=== PATIENT | female | born 1955 | race Caucasian/White ===

== ENCOUNTER → 2017-12-04 09:52 | Outpatient (CLI) | payer OTHER, SELFPAY ==
--- NOTE | 2017-12-04 09:56 | XR_ITS ---
XR DEXA axial skeleton HISTORY: ITS.REASON: POST MENOPAUSAL ORDERING PHYSICIAN: Kraig Figueredo MD PATIENT AGE: 62 years COMPARISON: None FINDINGS: The BMD measured at the Right femor total is 0.726 g/cm squared with a T score of -2.2 . This is considered Osteopenic according to the World Health Organization criteria. Fracture risk is moderate. Treatment is advised. IMPRESSION: Osteopenia with moderate fracture risk. Based on these results, recommend follow up exam November 2019
== END ==
PROVIDERS: Family Provider Family Medicine; PCP Family Medicine; Visit Provider Family Medicine
DX: Z78.0 Asymptomatic menopausal state (principal)
CPT/HCPCS: 77080

== ENCOUNTER → 2018-10-29 12:38 | Outpatient (CLI) | payer OTHER, SELFPAY ==
[2018-10-29 13:51] LABS: Basophils % 0.7 % (0.1-2.0); Eosinophils # 0.1 K/mm3 (0.0-0.4); Eosinophils % 1.5 % (0.1-12.0); Hematocrit 45.4 % (37.0-47.0); Hemoglobin 14.8 g/dL (12.2-16.2); Lymphocytes # 2.2 K/mm3 (0.7-4.5); Lymphocytes % 34.7 % (10-50); Mean Corpuscular HGB Conc 32.7 g/dL (31.8-35.4); Mean Corpuscular Hemoglobin 32.1 pg (27.0-31.2); Mean Corpuscular Volume 98.3 fl (81-99); Mean Platelet Volume 7.7 fl (7.4-10.4); Monocytes # 0.2 K/mm3 (0.1-1.0); Monocytes % 3.8 % (1.7-9.3); Neutrophils # 3.7 K/mm3 (1.8-7.8); Neutrophils % 59.3 % (37.0-80.0); Platelet Count 187 K/mm3 (142-424); Red Blood Count 4.62 M/mm3 (4.20-5.40); Red Cell Distribution Width 13.2 % (11.5-17.5); White Blood Count 6.2 K/mm3 (4.8-10.8)
[2018-10-29 13:52] LABS: Alanine Aminotransferase 18 U/L (12-78); Albumin Level 4.6 gm/dL (3.4-5.0); Albumin/Globulin Ratio 1.5 (1.1-1.8); Alkaline Phosphatase 92 U/L (46-116); Aspartate Amino Transferase 11 U/L (15-37); Bilirubin,Total 0.7 mg/dL (0.2-1.0); Blood Urea Nitrogen 15 mg/dL (7-18); Calcium 9.8 mg/dL (8.5-10.1); Carbon Dioxide 30 mmol/L (21.0-32.0); Chloride 103 mmol/L (98-107); Creatinine,Serum 0.67 mg/dL (0.55-1.02); Estimated Glomerular Filt Rate 89 ml/min (>60); GFR (African American) 108 ML/MIN (>60); Glucose 95 mg/dL (74-106); Sodium 142 mmol/L (136-145); Total Protein,Serum 7.6 gm/dL (6.4-8.2)
== END ==
PROVIDERS: Visit Provider Surgery
DX: K80.10 Calculus of gallbladder with chronic cholecystitis without obstruction (principal)
CPT/HCPCS: 36415; 80053; 85025; 93005

== ENCOUNTER → 2019-11-28 14:50 | Outpatient (CLI) | payer OTHER, SELFPAY ==
[2019-11-28 14:53] LABS: Adenovirus F 40/41, stool Not Detected (NotDetected); Astrovirus Not Detected (NotDetected); Clostridium Difficile A/B, PCR Not Detected (NotDetected); Cryptosporidium Not Detected (NotDetected); Cyclospora Cayetanesis Not Detected (NotDetected); Entamoeba histolytica Not Detected (NotDetected); Enteroaggregative E coli Not Detected (NotDetected); Enterotoxigenic E coli Not Detected (NotDetected); Giardia lamblia Not Detected (NotDetected); Norovirus Not Detected (NotDetected); Plesimonas Shigalloides, PCR Not Detected (NotDetected); Rotavirus A Not Detected (NotDetected); Salmonella, PCR Not Detected (NotDetected); Sapovirus Not Detected (NotDetected); Shiga-like toxin E coli Not Detected (NotDetected); Shigella Enterovasive E coli Not Detected (NotDetected); Vibrio Cholerae Not Detected (NotDetected); Vibrio, PCR Not Detected (NotDetected); Yersinia Entercolitica, PCR Not Detected (NotDetected)
[2019-11-28 17:40] LABS: Campylobacter Detected (NotDetected); Enteropathogenic E coli Detected (NotDetected)
== END ==
PROVIDERS: Visit Provider Family Medicine
DX: R19.7 Diarrhea, unspecified (principal); A04.5 Campylobacter enteritis; A04.0 Enteropathogenic Escherichia coli infection
CPT/HCPCS: 87507

== ENCOUNTER 2020-08-05 10:58 | Emergency (ER) | payer OTHER, SELFPAY ==
[2020-08-05 10:59] VITALS: BP 142/67; PULSE 76; RESP 16; TEMP 36.6; O2SAT 98; BMI 22.4
--- NOTE | 2020-08-05 11:14 | PC.NURSE ---
Lab at bedside to perform UDS for Workman's Comp
--- NOTE | 2020-08-05 11:17 | XR_ITS ---
PROCEDURE: XR KNEE LT 3V CLINICAL INDICATION: PAIN X 3wks COMPARISON: No exams were available for comparison FINDINGS: No fracture or dislocation. No lytic or blastic change. There is normal mineralization. There are mild osteoarthritic changes involving all 3 compartments with generalized osteopenia. Other findings:None. IMPRESSION: Mild osteoarthritis Dictated by: Anmol Dailey MD 08/05/2020 13:54 Anmol Dailey MD in [place] 08/05/2020 13:54
--- NOTE | 2020-08-05 11:20 | HMH.EDGENADL ---
ED Disposition Clinical Impression: Left knee sprain Qualifiers: Encounter type: initial encounter Involved ligament of knee: lateral collateral ligament Qualified Code(s): S83.422A - Sprain of lateral collateral ligament of left knee, initial encounter Disposition: Home, Self-Care Condition on Discharge: Good Additional Instructions: Wear knee immobilizer. Tylenol or ibuprofen for pain. Ice if needed for swelling. Sitting job only until seen by orthopedics. Referrals: Kraig Figueredo MD [Primary Care Provider] - Ashley Ahumada MD [Physician] - - Critical Care Critical Care Time: No Attestation: On 08/05/20, the high probability of a clinically significant, sudden or life threatening deterioration of the following system(s) required my full and direct attention, intervention and personal management. The time I documented below is in addition to time spent performing reported procedures but includes the following listed in this critical care notation. Medical Decision Making - Hilario Inquiry Pt receiving controlled substance: No Vital Signs: 08/05/20 10:59 08/05/20 11:38 Temperature 98 F Temperature Source Oral Pulse Rate [Radial] 76 72 Respiratory Rate 16 Blood Pressure [Right Arm] 142/67 H 148/62 H Blood Pressure Mean [Right Arm] 92 90 Blood Pressure Source [Right Arm] Automatic Cuff Blood Pressure Position [Right Arm] Sitting Sitting 02 Sat by Pulse Oximetry 98 99 Oxygen Delivery Method Room Air Room Air Orders (Tests/Meds): ORDERS Category Date Time Status Knee XR left 3 views [XR knee LT 3V] Stat Exams 08/05/20 11:17 Taken General Adult HPI - General Chief complaint: PAIN Stated complaint: [id number] left knee pain Time Seen by Provider: 08/05/20 11:20 Mode of Arrival: Ambulatory Limitations: No Limitations Description of Symptoms (Recalled from ER Triage Doc. by RN): TO ED AMBULATORY WITH C/O LATERAL LT KNEE PAIN. STATES AT WORK YESTERDAY AND SLIPPED, TWISTED LT KNEE. PT DENIES FALL. 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 She describes a varus type of stress. She now has pain in the lateral knee. She is able to bear weight. No numbness or weakness or other injuries. She did not fall to the ground. No previous knee problems. She is supposed to work today at 11 AM. She is not sure she can do her job because she is afraid her knee would give out on her. - Related Data Home Medications Medication Instructions Recorded Confirmed Aspirin [Aspir 81] 81 mg PO DAILY 09/30/18 09/05/19 Mirabegron [Myrbetriq] 50 mg PO DAILY 09/30/18 09/05/19 Allergies Allergy/AdvReac Type Severity Reaction Status Date / Time codeine AdvReac Unknown NA-NAUSEA/V Verified 09/05/19 12:08 OMITING [facility] History - Hepatitis A Screen Drug use history?: No High risk sexual behaviors?: No History of sexually transmitted infection?: No Currently employed?: No Childcare worker?: No Do you have indoor plumbing?: Yes Do you have electricity?: Yes Attestation statement:: This patient has been screened for Hepatitis A risk factors. I have reviewed the patient's past medical history: Yes Medical History: Reports:: Cancer Denies:: Diabetes Mellitus Type 1, Diabetes Mellitus Type 2, Internal Pacemaker, MRSA, Seizures Other Medical History: Denies: Blood Transfusion Reaction Other Surgeries: Yes: Cholecystectomy, Hernia Repair, Tubal Ligation, Other. No: Pacemaker Amputation: No Fractures: No - Social History Smoking Status: Current every day smoker Tobacco Type: cigarettes # Packs/Day (cigarettes): 1 Alcohol Intake: never Substance Use Type: denies use Occupational Status: employed Housing: house Household Members: spouse Family Hx:: Cancer ROS Obtained: Yes Systems reviewed as appropriate & no additional complaints - Musculoskele
--- NOTE | 2020-08-05 11:34 | PC.NURSE ---
Pt to rad.
--- NOTE | 2020-08-05 11:37 | PC.NURSE ---
Pt returned from rad.
[2020-08-05 11:38] VITALS: BP 148/62; PULSE 72; O2SAT 99
--- NOTE | 2020-08-05 12:02 | PC.NURSE ---
Pt has follow up appointment 08/09/[address] Ahumada.
[2020-08-05 12:10] VITALS: BP 149/86; PULSE 70; RESP 16; TEMP 36.6; O2SAT 98
== END 2020-08-05 12:11 | disposition home or self-care (01) ==
PROVIDERS: Emergency Provider Emergency Medicine; PCP Family Medicine
DX: S83.422A Sprain of lateral collateral ligament of left knee, initial encounter (principal); X50.1XXA Overexertion from prolonged static or awkward postures, initial encounter; Y92.69 Other specified industrial and construction area as the place of occurrence of the external cause; Y99.0 Civilian activity done for income or pay; F17.210 Nicotine dependence, cigarettes, uncomplicated
CPT/HCPCS: 29505; 73562; 99282

== ENCOUNTER → 2020-08-09 09:29 | Outpatient (CLI) | payer OTHER, SELFPAY ==
--- NOTE | 2020-08-09 09:34 | XR_ITS ---
PROCEDURE: XR KNEE LT 4V CLINICAL INDICATION: LT knee pain COMPARISON: CR XR KNEE LT 3V from 08/05/2020 FINDINGS: No fracture or dislocation. No lytic or blastic change. There is normal mineralization. Minimal osteoarthritic changes are present Other findings:None. IMPRESSION: Minimal osteoarthritis otherwise negative Dictated by: Anmol Dailey MD 08/09/2020 16:42 Anmol Dailey MD in [place] 08/09/2020 16:42
== END ==
PROVIDERS: PCP Family Medicine; Visit Provider Orthopaedic Surgery
DX: S83.92XA Sprain of unspecified site of left knee, initial encounter (principal)
CPT/HCPCS: 73564

== ENCOUNTER → 2021-01-13 13:49 | Outpatient (CLI) | payer OTHER, SELFPAY ==
--- NOTE | 2021-01-13 13:54 | CT_ITS ---
PROCEDURE: CT LUNG SCREENING CLINICAL INDICATION: HX OF NICOTINE DEPENDENCE 30+ pack year smoking history COMPARISON: CT ABDPELW CT abdomen pelvis w con from 09/30/2018 TECHNIQUE: The exam was performed on a GE Light Speed [address] scanner using 2.90 mGy CTDI. A low dose helical CT CHEST was performed on a multi-detector scanner. All CT scans at the facility use one or more dose reduction, viz: automated exposure control, ma/kV adjustment per patient size (including targeted exams where dose is matched to indication, i.e. head), or iterative reconstruction technique. The LDCT was performed in a facility that meets the criteria for the screening program. Data regarding this exam was submitted to ACR which is an approved registry. The order for this exam indicates that it came as a result of a lung cancer screening counseling shard decision-making visit that included all the elements required of such a visit including smoking cessation. The radiologist interpreting this exam meets the CMS criteria for the LDCT lung cancer screening program. The exam is reported using the Lung-RADS classification scale and reported to the ACR registry. NOTE: This study was performed for the specific purposes of lung cancer screening and is not an alternative to diagnostic chest CT. RADIATION DOSE: CTDI vol(CT dose Index-volume) = 2.90mG DLP (Dose Length Product) = 122.46 mGcm FINDINGS: COPD with centrilobular and panlobular emphysematous changes. There are scattered areas of scarring most prominent in the lung apices. 3 mm noncalcified nodule left lower lobe laterally stable. 7 mm nodular opacity is present in the right upper lobe posterior laterally. This is at the lower end of an area of scarring and may be due to scarring itself. Six-month follow-up suggested OTHER FINDINGS: Multiple hypodensities of the liver which may be due to cysts the largest visualized in the hepatic dome at 2.4 cm. IMPRESSION: Lung-RADS Category 3 Probably Benign Follow-up: [address] Chest with contrast. Other findings include COPD with centrilobular and panlobular emphysema with scattered areas of scarring Dictated by: Anmol Dailey MD 01/21/2021 13:07 Anmol Dailey MD in [place] 01/21/2021 13:07
--- NOTE | 2021-01-13 13:54 | MM_ITS ---
PROCEDURE INFORMATION: Exam: MG Screening 3D Mammography Exam date and time: 01/13/2021 1:54 PM Age: 65 years old Clinical indication: Encounter for screening mammogram for malignant neoplasm of breast TECHNIQUE: Imaging protocol: Screening tomosynthesis and 2D mammography including computer-aided detection (CAD) when performed. COMPARISON: No relevant prior studies available. FINDINGS: MAMMOGRAPHY: Breast composition: The breast tissue is composed of scattered areas of fibroglandular density. Mass: None. Architectural distortion: None. Calcifications: No suspicious calcifications. Asymmetric density: None. Skin thickening: None. Axillary adenopathy: None. IMPRESSION: No mammographic evidence of malignancy. Annual screening is recommended unless otherwise clinically indicated. ASSESSMENT: BI-RADS Category 1: Negative
== END ==
PROVIDERS: PCP Family Medicine; Visit Provider Family Medicine
DX: Z12.31 Encounter for screening mammogram for malignant neoplasm of breast (principal); Z87.891 Personal history of nicotine dependence; Z12.2 Encounter for screening for malignant neoplasm of respiratory organs
CPT/HCPCS: 71271; 77063; 77067

== ENCOUNTER 2021-03-16 19:50 | Emergency (ER) | payer OTHER, SELFPAY ==
[2021-03-16 19:51] VITALS: BP 134/50; PULSE 78; RESP 16; TEMP 36.6; O2SAT 96; BMI 23.0
--- NOTE | 2021-03-16 20:01 | XR_ITS ---
PROCEDURE INFORMATION: Exam: XR Right Elbow Exam date and time: 03/16/2021 8:01 PM Age: 65 years old Clinical indication: Injury or trauma; Fall; Work related; Blunt trauma (contusions or hematomas); Elbow; Right; Injury date: 03/16/2021; Injury details: Fell landed on RT side TECHNIQUE: Imaging protocol: XR Right elbow. Views: 3 or more views. COMPARISON: No relevant prior studies available. FINDINGS: Bones/joints: Osteopenia. No fracture. Soft tissues: Normal. IMPRESSION: No acute findings.
--- NOTE | 2021-03-16 20:01 | XR_ITS ---
PROCEDURE INFORMATION: Exam: XR Right Knee Exam date and time: 03/16/2021 8:01 PM Age: 65 years old Clinical indication: Injury or trauma; Fall; Work related; Blunt trauma; Right; Injury date: 03/16/2021; Injury details: Fell landed on RT knee swelling TECHNIQUE: Imaging protocol: XR Right knee. Views: 3 views. COMPARISON: VENOUS LOWER EXT BLAISE 04/07/2016 11:29 AM FINDINGS: Bones/joints: Osteopenia. No fracture. Soft tissues: Normal. IMPRESSION: No acute findings.
--- NOTE | 2021-03-16 20:03 | XR_ITS ---
PROCEDURE INFORMATION: Exam: XR Chest Exam date and time: 03/16/2021 8:03 PM Age: 65 years old Clinical indication: Injury or trauma; Fall; Work related; Blunt trauma (contusions or hematomas); Injury date: 03/16/2021; Injury details: Fell landed on RT side TECHNIQUE: Imaging protocol: XR of the chest. Views: 2 views. COMPARISON: CR CXR1 CHEST-PORTABLE 12/31/2016 1:55 PM FINDINGS: Lungs: Pulmonary hyperinflation. Stable 6 mm nodule at the left base. No consolidation. Pleural spaces: Unremarkable. No pleural effusion. No pneumothorax. Heart/Mediastinum: Unremarkable. No cardiomegaly. Bones/joints: Unremarkable. IMPRESSION: No acute findings.
--- NOTE | 2021-03-16 20:03 | XR_ITS ---
PROCEDURE INFORMATION: Exam: XR Pelvis Exam date and time: 03/16/2021 8:03 PM Age: 65 years old Clinical indication: Injury or trauma; Fall; Work related; Blunt trauma (contusions or hematomas); Right; Pelvic region; Injury date: 03/16/2021; Injury details: Fell TECHNIQUE: Imaging protocol: XR pelvis. Views: 1 or 2 view. COMPARISON: ABDPELW CT abdomen pelvis w con 09/30/2018 12:29 PM FINDINGS: Bones/joints: Degenerative changes of the lumbosacral spine. No acute fracture. Soft tissues: Unremarkable. Other findings: Large stool burden. IMPRESSION: Chronic changes without acute process.
--- NOTE | 2021-03-16 21:25 | HMH.EDFALL ---
ED Disposition Clinical Impression: Sprain of elbow, right Qualifiers: Encounter type: initial encounter Qualified Code(s): S53.401A - Unspecified sprain of right elbow, initial encounter Right knee sprain Qualifiers: Encounter type: initial encounter Involved ligament of knee: unspecified ligament Qualified Code(s): S83.91XA - Sprain of unspecified site of right knee, initial encounter Fall Qualifiers: Encounter type: initial encounter Qualified Code(s): W19.XXXA - Unspecified fall, initial encounter Disposition: Home, Self-Care Condition on Discharge: Good Instructions: DI for Knee Sprain, DI for Elbow Sprain Additional Instructions: ice and advil/tyenolas needed and see pcp as needed Referrals: Kraig Figueredo MD [Primary Care Provider] - - Critical Care Critical Care Time: No Attestation: On 03/16/21, the high probability of a clinically significant, sudden or life threatening deterioration of the following system(s) required my full and direct attention, intervention and personal management. The time I documented below is in addition to time spent performing reported procedures but includes the following listed in this critical care notation. Medical Decision Making - Medical Records Medical records reviewed: Yes: I reviewed the patient's medical records. - Hilario Inquiry Pt receiving controlled substance: No Vital Signs: 03/16/21 19:51 Temperature 97.8 F Temperature Source Oral Pulse Rate [Right] 78 Respiratory Rate 16 Blood Pressure [Right Arm] 134/50 L Blood Pressure Mean [Right Arm] 78 02 Sat by Pulse Oximetry 96 - Lab Data Lab results reviewed: Yes: I reviewed the patient's lab results. - Radiology Data #1 Image(s): Chest, Elbow, Pelvis, Knee Image Reviewed: Yes I have reviewed radiologist's interpretation Preliminary Findings: No Fracture Seen Medical Decision Narrative: knee and elbow injury w/o fx - workman comp form completed Fall HPI - General Chief Complaint: Fall Stated Complaint: WC AO fall in ER injured R knee R elbow Rhip Time Seen by Provider: 03/16/21 21:00 Mode of Arrival: Ambulatory Source of Information: Patient, Medical Record Limitations: No Limitations Description of Symptoms (Recalled from ER Triage Doc. by RN): pt fell in er @ 6:30. pt c/o rt knee,elbow,hip pain - History of Present Illness HPI Narrative: pt is a [employer] employee who slipped and injured rt elbow and rt knee - MD complaint: fall Onset (ago): hour(s) Fall from: standing Fall witnessed: yes, by bystander Place fall occurred: work Loss of consciousness: none Prolonged down time: no Context: tripped/slipped Location of injury - extremities: Right: elbow, thigh, knee Severity: moderate Associated symptoms (after fall): denies - Related Data Home Medications Medication Instructions Recorded Confirmed Aspirin [Aspir 81] 81 mg PO DAILY 09/30/18 08/09/20 Mirabegron [Myrbetriq] 50 mg PO DAILY 09/30/18 08/09/20 Allergies Allergy/AdvReac Type Severity Reaction Status Date / Time codeine AdvReac Unknown NA-NAUSEA/V Verified 08/09/20 10:11 OMITING [facility] History - Hepatitis A Screen Drug use history?: No High risk sexual behaviors?: No History of sexually transmitted infection?: No Currently employed?: No Childcare worker?: No Do you have indoor plumbing?: Yes Do you have electricity?: Yes Attestation statement:: This patient has been screened for Hepatitis A risk factors. I have reviewed the patient's past medical history: Yes Medical History: Reports:: Cancer Denies:: Diabetes Mellitus Type 1, Diabetes Mellitus Type 2, Internal Pacemaker, MRSA, Seizures Other Medical History: Denies: Blood Transfusion Reaction Other Surgeries: Yes: Cholecystectomy, Colonoscopy, Hernia Repair, Tubal Ligation, Other. No: Pacemaker Amputation: No Fractures: No Comment: back surgery - Social History Smoking Status: Current every day smoker Tobacco Type: cigarettes # Pa
[2021-03-16 21:50] VITALS: BP 134/50; PULSE 78; RESP 16; TEMP 36.6; O2SAT 96
== END 2021-03-16 21:51 | disposition home or self-care (01) ==
PROVIDERS: Emergency Provider Emergency Medicine; PCP Family Medicine
DX: S53.401A Unspecified sprain of right elbow, initial encounter (principal); S83.91XA Sprain of unspecified site of right knee, initial encounter; W01.0XXA Fall on same level from slipping, tripping and stumbling without subsequent striking against object, initial encounter; Y92.69 Other specified industrial and construction area as the place of occurrence of the external cause; Y99.0 Civilian activity done for income or pay
CPT/HCPCS: 71046; 72170; 73080; 73562; 99282

== ENCOUNTER 2021-06-17 08:56 | Emergency (ER) | payer OTHER, SELFPAY ==
--- NOTE | 2021-06-17 09:31 | HMH.EDUTC ---
[facility] [place] Disposition Clinical Impression: Fever Qualifiers: Fever type: unspecified Qualified Code(s): R50.9 - Fever, unspecified Disposition: Home, Self-Care Condition on Discharge: Good Instructions: Preventing the Spread of Coronavirus Discharge Instructions Additional Instructions: You have been tested for COVID19. Please isolate yourself as if you are positive until test results received. Referrals: Kraig Figueredo MD [Primary Care Provider] - Time of Disposition: 09:45 Medical Decision Making - Hilario Inquiry Pt receiving controlled substance: No - Lab Data Lab results reviewed: Yes: I reviewed the patient's lab results. Lab Results 06/17/21 09:29: Strep Scn Rapid Clinic Negative Orders (Tests/Meds): ORDERS Category Date Time Status Rapid PCR Covid and Flu A/B Stat Lab 06/17/21 09:40 Ordered Strep Screen Confirmation Routine Micro 06/17/21 09:29 Received [facility] [place] HPI - General Stated complaint: fever, chills Time Seen by Provider: 06/17/21 09:42 - History of Present Illness Provider Complaint: Patient started having sore throat, chills last night. This morning her temp as 101.7. She has mild left ear pain, sore throat, mild congestion and headache. Mild cough. She does smoke. No nausea, vomiting, diarrhea. No loss of taste or smell. No known exposure to COVID19 but does work at [employer]. She has had COVID vaccine X 2 as well as flu shot. Onset (ago): day(s) (1) Relieving factors: none Exacerbating factors: none Associated symptoms: cough, fever/chills, headaches, malaise Treatments prior to arrival: NSAID - Related Data Home Medications Medication Instructions Recorded Confirmed Aspirin [Aspir 81] 81 mg PO DAILY 09/30/18 08/09/20 Mirabegron [Myrbetriq] 50 mg PO DAILY 09/30/18 08/09/20 hydroCHLOROthiazide 12.5 mg PO DAILY 06/17/21 06/17/21 [Hydrochlorothiazide 12.5mg Tab] Allergies Allergy/AdvReac Type Severity Reaction Status Date / Time codeine AdvReac Unknown NA-NAUSEA/V Verified 06/17/21 09:38 OMITING [facility] History - Hepatitis A Screen Attestation statement:: This patient has been screened for Hepatitis A risk factors. I have reviewed the patient's past medical history: Yes Medical History: Reports:: Cancer Denies:: Diabetes Mellitus Type 1, Diabetes Mellitus Type 2, Internal Pacemaker, MRSA, Seizures Other Medical History: Denies: Blood Transfusion Reaction Other Surgeries: Yes: Cholecystectomy, Colonoscopy, Hernia Repair, Tubal Ligation, Other. No: Pacemaker Amputation: No Fractures: No Comment: back surgery - Social History Smoking Status: Current every day smoker Tobacco Type: cigarettes # Packs/Day (cigarettes): 1 Alcohol Intake: never Substance Use Type: denies use Occupational Status: employed Housing: house Household Members: spouse Family Hx:: Cancer ROS Obtained: Yes All systems reviewed & no additional complaints - Constitutional Constitutional: Reports body ache, Reports chills, Reports fever(s), Reports headache(s), Reports malaise - ENT Ears, Nose, Mouth, and Throat: Reports nasal congestion, Reports sore throat - Respiratory Respiratory: Reports cough Physical Exam - General General appearance: alert, in no apparent distress - Head Head exam: normocephalic - Eye Eye exam: Present: PERRL - ENT ENT exam: Present: normal oropharynx, TM's normal bilaterally - Neck Neck exam: Present: normal inspection. Absent: lymphadenopathy - Chest Chest inspection: Present: normal inspection, symmetric chest wall rise - Respiratory Respiratory exam: Present: normal lung sounds bilaterally. Absent: respiratory distress, wheezes - Cardiovascular Cardiovascular exam: Present: regular rate, normal rhythm - Neurological Exam Neurological exam: Present: alert, oriented X3 - Psychiatric Psychiatric exam: Present: normal affect, normal mood - Skin Skin exam: Present: warm, dry, intact
[2021-06-17 09:38] LABS: UTC Strep Screen (Rapid) Negative (Negative)
[2021-06-17 09:42] VITALS: BP 113/62; PULSE 82; RESP 16; TEMP 36.9; O2SAT 99; BMI 22.8
[2021-06-17 09:44] LABS: Coronavirus 19, PCR Not Detected (NotDetected); Influenza A, PCR Not Detected (NotDetected); Influenza B, PCR Not Detected (NotDetected)
[2021-06-17 09:59] VITALS: BP 113/62; PULSE 82; RESP 16; TEMP 36.9
== END 2021-06-17 10:02 | disposition home or self-care (01) ==
PROVIDERS: Emergency Provider Physician Assistant; PCP Family Medicine
DX: Z20.822 Contact with and (suspected) exposure to COVID-19 (principal); R50.9 Fever, unspecified; J02.9 Acute pharyngitis, unspecified; F17.210 Nicotine dependence, cigarettes, uncomplicated
CPT/HCPCS: 87880; 99202; C9803; G0463; U0003; U0005

== ENCOUNTER 2021-07-20 15:33 | Emergency (ER) | payer OTHER, SELFPAY ==
[2021-07-20 16:41] VITALS: BP 116/59; PULSE 82; RESP 19; TEMP 37; O2SAT 99; BMI 22.3
[2021-07-20 16:54] LABS: UTC Strep Screen (Rapid) Negative (Negative)
--- NOTE | 2021-07-20 17:02 | HMH.EDUTC ---
[facility] [place] Disposition Clinical Impression: Viral syndrome Pharyngitis Qualifiers: Pharyngitis/tonsillitis etiology: unspecified etiology Qualified Code(s): J02.9 - Acute pharyngitis, unspecified Disposition: Home, Self-Care Condition on Discharge: Good Instructions: Sore Throat, DI for Pharyngitis/Tonsillopharyngitis -- Adult, DI for Viral Syndrome, Preventing the Spread of Coronavirus Discharge Instructions Additional Instructions: Drink plenty of fluids. Take tylenol or ibuprofen for pain or fever. Take the medications as directed. Follow up with your regular doctor. GO TO THE ER FOR ANY WORSENING SYMPTOMS Quarantine until you know the results of your covid-19 test. If it is positive, the health department should call you and give you further instructions about your length of Quarantine and other things. Notify your school or workplace of your results and follow their instructions regarding return to work/school. Prescriptions: predniSONE [Prednisone 20mg Tab] 20 mg PO BID 3 Days #6 tab Transmission Status: Received by [id number] Azithromycin [Z-Aneudy 250mg Tab*] 250 mg PO UD DOSE PK #6 tab Transmission Status: Received by [id number] Referrals: Kraig Figueredo MD [Primary Care Provider] - Forms: Work/School Release Time of Disposition: 17:37 Medical Decision Making - Medical Records Medical records reviewed: No: I reviewed the patient's medical records. - Hilario Inquiry Pt receiving controlled substance: No Vital Signs: 07/20/21 16:41 07/20/21 17:40 Temperature 98.6 F 98.6 F Temperature Source Oral Pulse Rate 82 Pulse Rate [Left] 82 Respiratory Rate 19 19 Blood Pressure 116/59 L Blood Pressure [Right Arm] 116/59 L Blood Pressure Mean [Right Arm] 78 02 Sat by Pulse Oximetry 99 Oxygen Delivery Method Room Air - Lab Data Lab Results 07/20/21 16:45: Strep Scn Rapid Clinic Negative 07/20/21 17:30: Chlamy pneumoniae PCR Not detected, Adenovirus (PCR) Not detected, B. pertussis DNA (PCR) Not detected, Coronavirus OC43 (PCR) Not detected, Coronavirus HKU1 (PCR) Not detected, Coronavirus 229E (PCR) Not detected, Coronavirus NL63 (PCR) Not detected, Human Metapneumovir PCR Not detected, Influenza A (H1) PCR Not detected, Influ A (H1N1/09) PCR Not detected, Influenza A (H3) PCR Not detected, Influenza Type A (PCR) Not detected, Influenza Type B (PCR) Not detected, M. pneumoniae (PCR) Not detected, Parainfluenza 1 (PCR) Not detected, Parainfluenza 2 (PCR) Not detected, Parainfluenza 3 (PCR) Not detected, Parainfluenza 4 (PCR) Not detected, RSV (PCR) Not detected, Entero/Rhino (PCR) Not detected 07/20/21 17:30: SARS-CoV-2 (PCR) Not detected, Influenza A Untype (PCR) Not detected, Influenza Type B (PCR) Not detected Orders (Tests/Meds): ORDERS Category Date Time Status Strep Screen Confirmation Stat Micro 07/20/21 16:45 Received [facility] [place] HPI - General Stated complaint: fever sore throat Time Seen by Provider: 07/20/21 17:02 Mode of Arrival: Ambulatory Source of Information: Patient Limitations: No Limitations Description of Symptoms (Recalled from Triage Doc. by RN): pt c/o a sore throat and fever. ongoing since yesterday. HEENT Symptoms (Recalled from RN notes): Yes (sore throat) Resp Symptoms (Recalled from RN notes): No Skin Symptoms (Recalled from RN notes): No MS Symptoms (Recalled from RN notes): No Functional Status (Recalled from RN notes): wnl - History of Present Illness Provider Complaint: She c/o sore throat, sinus congestion and head ache for the past 2 days. She has ran a fever up to 101.2 last night. She denies a cough or chest congestion. She has been vaccinated against covid-19. 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 - Related Data Home Medications Medication Instructions Recorded Confirmed Aspirin [Aspir 81] 81 mg PO DAILY 09/30/18 08/09/20 Mirabegron [Myrbetriq] 50 mg PO DAILY 09/30/18 08/09/20 hydroCHLOROthi
[2021-07-20 17:40] VITALS: BP 116/59; PULSE 82; RESP 19; TEMP 37
[2021-07-20 17:44] LABS: Adenovirus,PCR Not Detected (NotDetected); Bordetella Pertussis Not Detected (NotDetected); Chlamydophila Pneumoniae, PCR Not Detected (NotDetected); Coronavirus 19, PCR Not Detected (NotDetected); Coronavirus 229E Not Detected (NotDetected); Coronavirus NL63 Not Detected (NotDetected); Coronavirus OC43 Not Detected (NotDetected); Coronovirus HKU1,PCR Not Detected (NotDetected); Human Metapneumovirus Not Detected (NotDetected); Influenza A, PCR Not Detected (NotDetected); Influenza AH1, 2009 Not Detected (NotDetected); Influenza AH1, PCR Not Detected (NotDetected); Influenza AH3,PCR Not Detected (NotDetected); Influenza B, PCR Not Detected (NotDetected); Mycoplasma Pneumoniae, PCR Not Detected (NotDetected); Parainfluenza 1, PCR Not Detected (NotDetected); Parainfluenza 2, PCR Not Detected (NotDetected); Parainfluenza 3, PCR Not Detected (NotDetected); Parainfluenza 4, PCR Not Detected (NotDetected); Respiratory Syncytial Virus Not Detected (NotDetected); Rhinovirus/Enterovirus Not Detected (NotDetected)
== END 2021-07-20 17:46 | disposition home or self-care (01) ==
PROVIDERS: Emergency Provider Nurse Practitioner Family; PCP Family Medicine
DX: B34.9 Viral infection, unspecified (principal); J02.9 Acute pharyngitis, unspecified; F17.210 Nicotine dependence, cigarettes, uncomplicated
CPT/HCPCS: 87486; 87581; 87632; 87798; 87880; 99203; C9803; G0463; U0003; U0005

== ENCOUNTER → 2021-09-09 10:49 | Outpatient (CLI) | payer OTHER, SELFPAY ==
[2021-09-09 11:11] LABS: Influenza A, PCR Not Detected (NotDetected); Influenza B, PCR Not Detected (NotDetected)
[2021-09-09 20:43] LABS: Coronavirus 19, PCR Detected (NotDetected)
== END ==
PROVIDERS: PCP Family Medicine; Visit Provider Nurse Practitioner
DX: U07.1 COVID-19 (principal)
CPT/HCPCS: C9803; U0003; U0005

== ENCOUNTER → 2021-12-15 09:56 | Outpatient (CLI) | payer OTHER, SELFPAY ==
[2021-12-15 11:54] LABS: Chloride 104 mmol/L (98-107); Potassium 4.1 mmoL/L (3.5-5.1); Sodium 139 mmol/L (136-145)
[2021-12-15 11:56] LABS: Alanine Aminotransferase 14 U/L (12-78); Alkaline Phosphatase 63 U/L (38-126); Aspartate Amino Transferase 25 U/L (14-36); Bilirubin,Total 0.9 mg/dl (0.2-1.3); Blood Urea Nitrogen 17 mg/dl (7-17); Estimated Glomerular Filt Rate 124 ml/min (>60); GFR (African American) 150 ML/MIN (>60)
[2021-12-15 11:57] LABS: Albumin Level 4.3 g/dl (3.5-5.0); Anion Gap 10.1 mEq/L (5-15); Calcium 8.8 mg/dl (8.4-10.2); Carbon Dioxide 29 mmol/L (22.0-30.0); Chol/HDL Ratio 3.9 (1-3.5); Cholesterol 178 mg/dl (140-200); Globulin 2.2 g/dL (1.3-3.2); Glucose 83 mg/dl (74-100); HDL Cholesterol 46 mg/dl (40-60); Magnesium 1.8 mg/dl (1.6-2.3); Total Protein,Serum 6.5 g/dl (6.3-8.2); Triglycerides 113 mg/dl (30-150); VLDL Cholesterol 23 mg/dL (0-40)
[2021-12-15 12:08] LABS: Direct LDL Cholesterol 103.36 mg/dL (100-129)
[2021-12-15 12:15] LABS: Free T4 (Free Thyroxine) 1.22 ng/dl (0.78-2.19)
[2021-12-15 12:26] LABS: Thyroid Stimulating Hormone 0.58 uIU/mL (0.465-4.68)
== END ==
LOC: LAB 09:57
PROVIDERS: Visit Provider Nurse Practitioner Family
DX: I10 Essential (primary) hypertension (principal); M62.838 Other muscle spasm
CPT/HCPCS: 36415; 80053; 80061; 83735; 84439; 84443

== ENCOUNTER 2022-01-18 09:39 | Emergency (ER) | payer OTHER, SELFPAY ==
--- NOTE | 2022-01-18 09:52 | HMH.EDUTC ---
[facility] [place] Clinical Impression: Bronchitis Sinusitis Qualifiers: Sinusitis location: unspecified location Chronicity: acute Recurrence: non-recurrent Qualified Code(s): J01.90 - Acute sinusitis, unspecified Disposition: Home, Self-Care Condition on Discharge: Good Instructions: DI for Sinusitis, DI for Acute Bronchitis Additional Instructions: Drink plenty of fluids. Take tylenol or ibuprofen for pain or fever. Take the medications as directed. Follow up with your regular doctor. GO TO THE ER FOR ANY WORSENING SYMPTOMS Prescriptions: Benzonatate [Benzonatate 100mg cap] 100 mg PO TIDP PRN #30 cap PRN Reason: Cough Transmission Status: Received by [id number] methylPREDNISolone [Medrol] 4 mg PO DIRECTED 6 Days #21 packet Transmission Status: Received by [email or web address] Azithromycin [Z-Aneudy 250mg Tab*] 250 mg PO UD DOSE PK #6 tab Transmission Status: Received by [email or web address] Referrals: Provider,Referral, MD [Primary Care Provider] - Time of Disposition: 10:07 Medical Decision Making - Medical Records Medical records reviewed: No: I reviewed the patient's medical records. - Hilario Inquiry Pt receiving controlled substance: No Vital Signs: 01/18/22 09:55 01/18/22 10:11 Temperature 98.0 F 98.0 F Temperature Source Oral Pulse Rate 68 Pulse Rate [Left Radial] 68 Respiratory Rate 19 19 Blood Pressure 118/86 Blood Pressure [Right Arm] 118/86 Blood Pressure Mean [Right Arm] 96 02 Sat by Pulse Oximetry 99 - Lab Data Lab results reviewed: Yes: I reviewed the patient's lab results. [facility] [place] - General Stated complaint: cough, drainage Time Seen by Provider: 01/18/22 09:52 - History of Present Illness Provider Complaint: She states that she has had sinus congestion, chills, scratchy sore throat and she has felt bad for the past 2 days. - Related Data Home Medications Medication Instructions Recorded Confirmed Aspirin [Aspir 81] 81 mg PO DAILY 09/30/18 08/09/20 Mirabegron [Myrbetriq] 50 mg PO DAILY 09/30/18 08/09/20 hydroCHLOROthiazide 12.5 mg PO DAILY 06/17/21 06/17/21 [Hydrochlorothiazide 12.5mg Tab] Previous Rx's Medication Instructions Recorded amoxicillin 875 mg tablet 875 mg PO BID #20 tab 06/17/21 Azithromycin [Z-Aneudy 250mg Tab*] 250 mg PO UD DOSE PK #6 tab 07/20/21 predniSONE [Prednisone 20mg 20 mg PO BID 3 Days #6 tab 07/20/21 Tab] Azithromycin [Z-Aneudy 250mg Tab*] 250 mg PO UD DOSE PK #6 tab 01/18/22 Benzonatate [Benzonatate 100mg 100 mg PO TIDP PRN #30 cap 01/18/22 cap] methylPREDNISolone [Medrol] 4 mg PO DIRECTED 6 Days #21 01/18/22 packet Allergies Allergy/AdvReac Type Severity Reaction Status Date / Time codeine AdvReac Unknown NA-NAUSEA/V Verified 06/17/21 09:38 OMITING [facility] History - Hepatitis A Screen Attestation statement:: This patient has been screened for Hepatitis A risk factors. I have reviewed the patient's past medical history: Yes Medical History: Reports:: Cancer Denies:: Diabetes Mellitus Type 1, Diabetes Mellitus Type 2, Internal Pacemaker, MRSA, Seizures Other Medical History: Denies: Blood Transfusion Reaction Other Surgeries: Yes: Cholecystectomy, Colonoscopy, Hernia Repair, Tubal Ligation, Other. No: Pacemaker Amputation: No Fractures: No Comment: back surgery - Social History Smoking Status: Current every day smoker Tobacco Type: cigarettes # Packs/Day (cigarettes): 0 Alcohol Intake: never Substance Use Type: denies use Occupational Status: employed Housing: house Household Members: spouse Family Hx:: Cancer ROS Obtained: Yes All systems reviewed & no additional complaints - Constitutional Constitutional: Reports as per HPI - Eyes Eyes: Denies eye discharge - ENT Ears, Nose, Mouth, and Throat: Reports as per HPI - Cardiovascular Cardiovascular: Denies chest pain - Respiratory Respiratory: Denies chest congestion, Reports co
[2022-01-18 09:55] VITALS: BP 118/86; PULSE 68; RESP 19; TEMP 36.7; O2SAT 99; BMI 22.0
[2022-01-18 10:11] VITALS: BP 118/86; PULSE 68; RESP 19; TEMP 36.7
== END 2022-01-18 10:11 | disposition home or self-care (01) ==
PROVIDERS: Emergency Provider Nurse Practitioner Family
DX: J20.9 Acute bronchitis, unspecified (principal); J01.90 Acute sinusitis, unspecified; Z72.0 Tobacco use; Z88.5 Allergy status to narcotic agent
CPT/HCPCS: 99212; G0463

== ENCOUNTER 2022-02-06 23:23 | Observation (INO) | payer OTHER, SELFPAY ==
--- NOTE | 2022-02-06 23:21 | ECG_ITS ---
APPROVED REPORT Exam: Resting ECG HR:68 bpm ECG Measurements Heart Rate 68 AXES MD 204 P 74 QRSd 99 QRS 72 QT 414 T 58 QTc 431 Conclusion SINUS RHYTHM NORMAL ECG UNCONFIRMED REPORT Electronically signed by : Kraig Lott MD 02/07/2022 22:16:56
[2022-02-06 23:23] VITALS: BP 146/75; PULSE 75; RESP 20; TEMP 36.6; O2SAT 99; BMI 22.3
[2022-02-06 23:31] VITALS: BP 140/74; PULSE 70; RESP 14; O2SAT 98
[2022-02-06 23:35] VITALS: BMI 22.3
[2022-02-06 23:48] LABS: Basophils # 0.1 K/mm3 (0-0.2); Basophils % 0.7 % (0.1-2.0); Eosinophils # 0.1 K/mm3 (0.0-0.4); Eosinophils % 1.8 % (0.1-12.0); Hematocrit 41.6 % (37.0-47.0); Hemoglobin 14.4 g/dL (12.2-16.2); Lymphocytes % 42.2 % (10-50); Mean Corpuscular HGB Conc 34.6 g/dL (31.8-35.4); Mean Corpuscular Hemoglobin 32.7 pg (27.0-31.2); Mean Corpuscular Volume 94.4 fl (81-99); Mean Platelet Volume 7.2 fl (7.4-10.4); Monocytes # 0.4 K/mm3 (0.1-1.0); Monocytes % 5.7 % (1.7-9.3); Neutrophils # 3.5 K/mm3 (1.8-7.8); Neutrophils % 49.4 % (37.0-80.0); Platelet Count 222 K/mm3 (142-424); Red Blood Count 4.41 M/mm3 (4.20-5.40); Red Cell Distribution Width 12.7 % (11.5-17.5); White Blood Count 7.2 K/mm3 (4.8-10.8)
[2022-02-06 23:52] LABS: Alanine Aminotransferase 18 U/L (12-78); Albumin Level 4.1 g/dl (3.5-5.0); Alkaline Phosphatase 85 U/L (38-126); Anion Gap 8.5 mEq/L (5-15); Aspartate Amino Transferase 34 U/L (14-36); Bilirubin,Indirect 0.5 mg/dL (0.0-0.9); Bilirubin,Total 0.5 mg/dl (0.2-1.3); Bilirubin,Unconjugated 0.7 mg/dL (0.0-1.1); Blood Urea Nitrogen 17 mg/dl (7-17); Calcium 9.6 mg/dl (8.4-10.2); Carbon Dioxide 31 mmol/L (22.0-30.0); Chloride 102 mmol/L (98-107); Creatinine Clearance Estimated 64 mL/min (50-200); Estimated Glomerular Filt Rate 84 ml/min (>60); GFR (African American) 102 ML/MIN (>60); Glucose 131 mg/dl (74-100); Potassium 3.5 mmoL/L (3.5-5.1); Sodium 138 mmol/L (136-145); Total Protein,Serum 6.7 g/dl (6.3-8.2)
[2022-02-06 23:57] LABS: C-Reactive Protein 2.4 mg/L (0-4)
[2022-02-07] VITALS (9 sets, daily range): BP systolic 112–140; BP diastolic 55–78; PULSE 50–66; RESP 15–18; TEMP 36.7–37; O2SAT 97–99; BMI 22.5
[2022-02-07 00:06] LABS: NT Pro Brain Natriuretic Pep. 82.8 pg/mL (0-125)
[2022-02-07 00:09] LABS: Troponin I < 0.01 ng/ml (0.00-0.034)
--- NOTE | 2022-02-07 00:10 | XR_ITS ---
PROCEDURE INFORMATION: Exam: XR Chest Exam date and time: 02/06/2022 11:52 PM Age: 66 years old Clinical indication: Pain; Chest pressure; Patient HX: H/o smoker, covid in aug. C/O c. P. ; Additional info: Cp TECHNIQUE: Imaging protocol: XR of the chest. Views: 2 views. COMPARISON: CR XR CHEST 2V 03/16/2021 8:11 PM FINDINGS: Lungs: Subtle interstitial haziness could reflect interstitial pneumonia. No consolidation. COPD. Pleural spaces: Unremarkable. No pleural effusion. No pneumothorax. Heart/Mediastinum: Unremarkable. No cardiomegaly. Bones/joints: Unremarkable. IMPRESSION: Subtle interstitial haziness could reflect interstitial pneumonia.
[2022-02-07 00:12] LABS: Procalcitonin < 0.030 ng/mL (0.0-2.0)
[2022-02-07 00:21] LABS: Erythrocyte Sedimentation Rate 17 mm/hr (0-30)
--- NOTE | 2022-02-07 00:50 | HMH.EDCP ---
ED Disposition Clinical Impression: Tobacco use Chest pain Qualifiers: Chest pain type: precordial pain Qualified Code(s): R07.2 - Precordial pain Disposition: Admitted as Observation Condition on Discharge: Good - Critical Care Critical Care Time: No Attestation: On 02/06/22, the high probability of a clinically significant, sudden or life threatening deterioration of the following system(s) required my full and direct attention, intervention and personal management. The time I documented below is in addition to time spent performing reported procedures but includes the following listed in this critical care notation. Medical Decision Making - Medical Records Medical records reviewed: Yes: I reviewed the patient's medical records. - Hilario Inquiry Pt receiving controlled substance: No Vital Signs: 02/06/22 23:23 02/06/22 23:31 02/07/22 00:31 Temperature 97.9 F Temperature Source Oral Pulse Rate 70 55 L Pulse Rate [Right] 75 Respiratory Rate 20 14 16 Blood Pressure 140/74 123/57 L Blood Pressure [Right Arm] 146/75 H Blood Pressure Mean 92 79 Blood Pressure Mean [Right Arm] 98 Blood Pressure Source [Right Arm] Automatic Cuff 02 Sat by Pulse Oximetry 99 98 99 Oxygen Delivery Method Room Air 02/07/22 01:00 Temperature Temperature Source Pulse Rate 66 Pulse Rate [Right] Respiratory Rate 16 Blood Pressure 140/78 Blood Pressure [Right Arm] Blood Pressure Mean 98 Blood Pressure Mean [Right Arm] Blood Pressure Source [Right Arm] 02 Sat by Pulse Oximetry 99 Oxygen Delivery Method - Lab Data Lab results reviewed: Yes: I reviewed the patient's lab results. Lab Results 02/06/22 23:20: WBC 7.2, RBC 4.41, Hgb 14.4, Hct 41.6, MCV 94.4, MCH 32.7 H, MCHC 34.6, RDW 12.7, Plt Count 222, MPV 7.2 L, Neut % (Auto) 49.4, Lymph % (Auto) 42.2, [place] % (Auto) 5.7, Eos % (Auto) 1.8, Baso % (Auto) 0.7, Neut # (Auto) 3.5, Lymph # (Auto) 3.0, [place] # (Auto) 0.4, Eos # (Auto) 0.1, Baso # (Auto) 0.1, ESR 17 02/06/22 23:20: Sodium 138, Potassium 3.5, Chloride 102, Carbon Dioxide 31 H, Anion Gap 8.5, BUN 17, Creatinine 0.70, Estimated Creat Clear 64, Estimated GFR 84, Est GFR ( Amer) 102, Glucose 131 H, Calcium 9.6, Total Bilirubin 0.5, Direct Bilirubin 0.0, Conjugated Bilirubin 0.0, Indirect Bilirubin 0.5, Unconjugated Bilirubin 0.7, AST 34, ALT 18, Alkaline Phosphatase 85, Troponin I < 0.01, C-Reactive Protein 2.4, NT-Pro-B Natriuret Pep 82.8, Total Protein 6.7, Albumin 4.1, Procalcitonin < 0.030 02/07/22 00:51: SARS-CoV-2 (PCR) Not detected, Influenza A Untype (PCR) Not detected, Influenza Type B (PCR) Not detected Result diagrams: 02/06/22 23:20 02/06/22 23:20 Orders (Tests/Meds): ED MEDICATIONS Generic Name Dose Route Start Last Admin Trade Name Freq PRN Reason Stop Dose Admin Sodium Chloride 1,000 mls @ 999 mls/hr 02/06/22 23:45 02/06/22 23:50 Sod Chlor 0.9% 1000ml Bag IV 02/07/22 00:45 999 mls/hr .Q1H1M MAINE Administration Discontinued Medications Generic Name Dose Route Start Last Admin Trade Name Freq PRN Reason Stop Dose Admin Nitroglycerin 0.4 mg 02/06/22 23:37 02/06/22 23:50 Nitroglycerin 0.4mg Sl Tablet SL 02/06/22 23:38 0.4 mg ONCE ONE Administration Nitroglycerin 1 gm 02/07/22 00:31 02/07/22 00:32 Nitroglycerin 1 Gm Ointment TD 02/07/22 00:32 1 gm ONCE ONE Administration Ondansetron HCl 4 mg 02/06/22 23:37 02/06/22 23:50 Ondansetron 4mg/2ml Vial IV 02/06/22 23:38 4 mg ONCE ONE Administration ORDERS Category Date Time Status XR chest 2V Routine Exams 02/07/22 00:10 Taken Troponin I Q3H Lab 02/07/22 02:45 Ordered Troponin I Q3H Lab 02/07/22 05:45 Ordered - Radiology Data #1 Image Reviewed: Yes I have reviewed radiologist's interpretation Preliminary Findings: Normal/NAD - ECG Data Tracing #1 Normal Sinus Rhythm: Yes Ischemic changes: non-specific ST-T wave changes Medical Decision Narra
[2022-02-07 01:27] LABS: Coronavirus 19, PCR Not Detected (NotDetected); Influenza A, PCR Not Detected (NotDetected); Influenza B, PCR Not Detected (NotDetected)
--- NOTE | 2022-02-07 02:15 | PC.NURSE ---
PT ARRIVED TO FLOOR VIA W/C FROM ED W/STAFF @ [id number]
[2022-02-07 02:40] LABS: Troponin I < 0.01 ng/ml (0.00-0.034)
--- NOTE | 2022-02-07 06:30 | PC.NURSE ---
Geovany MOONEY NOTIFIED OF CONSULT
[2022-02-07 06:51] LABS: Basophils # 0.1 K/mm3 (0-0.2); Eosinophils # 0.1 K/mm3 (0.0-0.4); Lymphocytes # 1.7 K/mm3 (0.7-4.5); Monocytes # 0.3 K/mm3 (0.1-1.0); Red Cell Distribution Width 13.5 % (11.5-17.5)
[2022-02-07 06:52] LABS: Chloride 109 mmol/L (98-107); Potassium 3.3 mmoL/L (3.5-5.1); Sodium 138 mmol/L (136-145)
[2022-02-07 06:55] LABS: Anion Gap 4.3 mEq/L (5-15); Blood Urea Nitrogen 14 mg/dl (7-17); Carbon Dioxide 28 mmol/L (22.0-30.0); Cholesterol 123 mg/dl (140-200); Creatinine Clearance Estimated 65 mL/min (50-200); Estimated Glomerular Filt Rate 124 ml/min (>60); GFR (African American) 150 ML/MIN (>60); Glucose 102 mg/dl (74-100); Triglycerides 59 mg/dl (30-150); VLDL Cholesterol 12 mg/dL (0-40)
[2022-02-07 06:56] LABS: Calcium 8.7 mg/dl (8.4-10.2); HDL Cholesterol 31 mg/dl (40-60); Magnesium 1.7 mg/dl (1.6-2.3)
[2022-02-07 07:07] LABS: Direct LDL Cholesterol 68.69 mg/dL (100-129)
--- NOTE | 2022-02-07 07:18 | HMH.PHAVTE ---
[facility] Pharmacy VTE Monitoring - Patient Demographics Admission date: 02/07/22 Report Date: 02/07/22 Time: 07:18 Allergies/Adverse Reactions: Patient Allergies codeine Adverse Reaction (Unknown, Verified 02/07/22 02:23) NA-NAUSEA/VOMITING Height: 1.8 m Weight: 73.17 kg Patient Problems: Current Active Problems Chest pain (Acute) Tobacco use (Acute) - VTE Risk Labs: VTE Related Lab Results Hgb 14.4 g/dL (12.2-16.2) 02/06/22 23:20 Hct 41.6 % (37.0-47.0) 02/06/22 23:20 Plt Count 222 K/mm3 (142-424) 02/06/22 23:20 BUN 14 mg/dl (7-17) 02/07/22 05:56 Creatinine 0.50 mg/dl (0.52-1.04) L D 02/07/22 05:56 Estimated Creat Clear 65 mL/min (50-200) 02/07/22 05:56 Was VTE Risk Assessment Performed: No VTE Score: 8 VTE Risk Level: Moderate Risk - Prophylaxis VTE Prophylaxis Ordered?: Yes Types of VTE Prophylaxis: TEDS Knee High Location of Applied Device: Bilateral Lower Extremeties
--- NOTE | 2022-02-07 07:19 | HMH.PHAINT ---
MEDICATION RECONCILIATION COMPLETED ON PATIENT USING EXTERNAL FILL HISTORY FROM PHARMACY. -ANDREA MERIDA, CHRISTOSD
[2022-02-07 07:38] LABS: Eosinophils % 0.9 % (0.1-12.0); Hematocrit 36.8 % (37.0-47.0); Lymphocytes % 33.2 % (10-50); Mean Corpuscular HGB Conc 34.5 g/dL (31.8-35.4); Mean Corpuscular Hemoglobin 33.8 pg (27.0-31.2); Mean Corpuscular Volume 97.9 fl (81-99); Mean Platelet Volume 8.3 fl (7.4-10.4); Neutrophils # 3.1 K/mm3 (1.8-7.8); Neutrophils % 59.9 % (37.0-80.0); Platelet Count 166 K/mm3 (142-424); Red Blood Count 3.75 M/mm3 (4.20-5.40); White Blood Count 5.1 K/mm3 (4.8-10.8)
[2022-02-07 07:42] LABS: Hemoglobin 12.7 g/dL (12.2-16.2)
[2022-02-07 07:46] LABS: Troponin I < 0.01 ng/ml (0.00-0.034)
--- NOTE | 2022-02-07 08:00 | CA_ITS ---
APPROVED REPORT EXAM: Comprehensive 2D, Doppler, and color-flow Echocardiogram Optical Engineer: Cindy Bazzi CRT Ht: 5 ft 11 in Wt: 160lbs BSA: 1.92 BP: 140/78 mmHg Indications: Chest Pain, Hypertension/HDD,covid 09/17 2D Dimensions LVOT 2.12 cm (M/F) 1.5-2.5 LA Volume 43.90 mL LA Volume Index 22.90 mL/m2 (M/F) 16-34 M-Mode Dimensions RVDd 2.19 cm (0.9-2.6) LA Diam 1.94 cm (1.9-4.0) LVDd 4.07 cm (3.5-5.7) Ao Diam 3.62 cm (2.0-3.7) LVDs 2.41 cm (3.5-5.7) IVSd 0.75 cm (0.6-1.1) PWd 0.91 cm (0.6-1.1) EF (Teich) 72.00% FS 40.80% EDV (Teich) 72.90 mL TAPSE 3.12 (<1.7) ESV (Teich) 20.40 mL LV Diastology E Decel Time 150.00 (160-240 msec) E/A Ratio 1.04 MED E' 9.40 (< 7 cm/sec) MED A' 13.70 cm/s E'/MED E' Ratio 8.24 (>14) LAT A' 10.60 cm/s Aortic Valve AO Peak GR. 5.50 mmHg Mitral Valve MV E Max Chapin. 77.00 (40-130 cm/s) MV A Velocity 75.00 (40-130 cm/s) E/A Ratio 1.04 MV Decel. Time 150.00 (160-240 ms) MV PHT 44.00 ms Pulmonary Valve PV Peak Velocity 70.00 (50-150 cm/s) Tricuspid Valve TR P. Velocity 276.00 cm/s RAP Estimate 10.00 mmHg RVSP 40.50 mmHg Left Ventricle Left atrium is mildly enlarged, left ventricular normal size, mild concentric left ventricular hypertrophy, estimated ejection fraction 55% with no regional wall motion abnormality, grade 1 diastolic dysfunction seen without tissue Doppler evidence of raise left atrial pressure. Right Ventricle Right atrium and right ventricle are qualitatively mildly enlarged with normal contractility. Aortic Valve Aortic valve is minimally thickened and fibrosed there is no aortic stenosis aortic insufficiency. Mitral Valve Mitral valve grossly normal, there is trace mitral regurgitation. Tricuspid Valve Tricuspid valve grossly normal, there is trace tricuspid regurgitation, tricuspid regurgitation jet velocity is inadequate for calculation of the right ventricular systolic pressure. Pulmonic Valve Pulmonic valve is poorly visualized. Great Vessels Aortic root is normal size. Inferior vena cava is mildly dilated without significant inspiratory collapse. Pericardium No significant pericardial effusion noted. Conclusion 1. Mild biatrial lodgment, normal left ventricular size, mild concentric left ventricular hypertrophy, estimated ejection fraction 55% with no regional wall motion abnormality, grade 1 diastolic dysfunction seen without tissue Doppler evidence of reduced left atrial pressure. 2. Mildly enlarged right ventricle with normal contractility. 3. Trace mitral and tricuspid regurgitation. 4. No significant pericardial effusion. 5. Inferior vena cava is mildly dilated without significant inspiratory collapse. Electronically signed by : Zuhair Almazan MD 02/07/2022 19:46:29
--- NOTE | 2022-02-07 08:25 | HMH.CNCARD ---
History of Present Illness Consult date: 02/07/22 Requesting physician: Thuan Cortes Consult reason: chest pain Chief complaint: Chest pain Additional Medical History:: 1. Continued tobacco use 2. Left heart catheterization, 2017, normal coronary arteries with normal EF and mildly elevated end-diastolic pressure 20 mmHg. 3. Family history of aortic aneurysm in brother 4. SKin cancer of nose History of present illness: 66-year-old white female presented to the emergency department for substernal chest pain and pressure that awakened her from sleep last evening. Patient waited about 30 minutes to see if it would resolve before coming to the ER for evaluation. EKG showed sinus rhythm with no acute ST segment changes. Patient was given a sublingual nitroglycerin and subsequent Nitropaste with relief of symptoms. However she did have a headache from this and it was removed this morning. Troponins overnight have returned normal x3. Preliminary echocardiogram this morning was performed with what appears to be normal left ventricular ejection fraction without significant valve disease. Patient had a cardiac cath in 2017 showed normal coronary arteries and normal EF. She does continue to smoke. She is nondiabetic and denies high cholesterol high cholesterol. She does take an aspirin daily along with HCTZ for high blood pressure. She does relate some recent symptoms of food getting hung up in her esophagus but denies any significant heartburn symptoms. [facility] History Medical History: Reports:: Cancer Denies:: Diabetes Mellitus Type 1, Diabetes Mellitus Type 2, Internal Pacemaker, MRSA, Seizures *Have you ever received a pneumonia vaccine?: Yes *Have you received a flu vaccine this season?: Yes Other Medical History: Denies: Blood Transfusion Reaction Other Surgeries: Yes: Cholecystectomy, Colonoscopy, Hernia Repair, Tubal Ligation, Other. No: Pacemaker Amputation: No Fractures: No - *Social History Smoking Status: Current every day smoker Tobacco Type: cigarettes # Packs/Day (cigarettes): 1 Alcohol Intake: never Substance Use Type: denies use *Occupational Status:: employed Housing: house Household Members: spouse *Travel in the last 8 weeks: None Family Hx:: Cancer Meds Home Medications Medication Instructions Recorded Confirmed Type Aspirin [Aspir 81] 81 mg PO DAILY 09/30/18 02/07/22 History hydroCHLOROthiazide 12.5 mg PO DAILY 06/17/21 02/07/22 History [Hydrochlorothiazide 12.5mg Tab] Allergies Allergy/AdvReac Type Severity Reaction Status Date / Time codeine AdvReac Unknown NA-NAUSEA/V Verified 02/07/22 02:23 OMITING Exam Vital signs and Labs for Last 24 Hours: Temp Pulse Resp BP Pulse Ox 98.1 F 55 L 16 120/61 97 02/07/22 08:00 02/07/22 08:00 02/07/22 08:00 02/07/22 08:00 02/07/22 08:00 Laboratory Results - last 24 hr 02/06/22 23:20: WBC 7.2, RBC 4.41, Hgb 14.4, Hct 41.6, MCV 94.4, MCH 32.7 H, MCHC 34.6, RDW 12.7, Plt Count 222, MPV 7.2 L, Neut % (Auto) 49.4, Lymph % (Auto) 42.2, Lee % (Auto) 5.7, Eos % (Auto) 1.8, Baso % (Auto) 0.7, Neut # (Auto) 3.5, Lymph # (Auto) 3.0, Lee # (Auto) 0.4, Eos # (Auto) 0.1, Baso # (Auto) 0.1, ESR 17 02/06/22 23:20: Sodium 138, Potassium 3.5, Chloride 102, Carbon Dioxide 31 H, Anion Gap 8.5, BUN 17, Creatinine 0.70, Estimated Creat Clear 64, Estimated GFR 84, Est GFR ( Amer) 102, Glucose 131 H, Calcium 9.6, Total Bilirubin 0.5, Direct Bilirubin 0.0, Conjugated Bilirubin 0.0, Indirect Bilirubin 0.5, Unconjugated Bilirubin 0.7, AST 34, ALT 18, Alkaline Phosphatase 85, Troponin I < 0.01, C-Reactive Protein 2.4, NT-Pro-B Natriuret Pep 82.8, Total Protein 6.7, Albumin 4.1, Procalcitonin < 0.030 02/07/22 00:51: SARS-CoV-2 (PCR) Not detected, Influenza A Untype (PCR) Not detected, Influenza Type B (PCR) Not detected 02/07/22 02:14: Troponin I < 0.01 02/07/22 05:56: Troponin I < 0.01 02/07/22 05:56: WBC 5.1 D, RBC 3.75 L, Hgb 12.7 D, Hct 36.8 L, MCV 9
--- NOTE | 2022-02-07 10:31 | HMH.HPDC ---
General - General Admission date:: 02/07/22 Discharge date: 02/07/22 *Admission Date: 02/07/22 *Chief complaint: Chest pain *History of present illness: 56-year-old female patient was awakened from sleep with midsternal chest pain that radiated through to her back. She rated pain 6/10. She denies any shortness of breath or sweating episode. She did have a cardiac cath in [address] Castillo that was negative Troponins were negative x3 Chest x-ray revealed no acute findings [facility] History I have reviewed the patient's past medical history: Yes Medical History: Reports:: Cancer Denies:: Diabetes Mellitus Type 1, Diabetes Mellitus Type 2, Internal Pacemaker, MRSA, Seizures *Have you ever received a pneumonia vaccine?: Yes *Have you received a flu vaccine this season?: Yes Other Medical History: Denies: Blood Transfusion Reaction Other Surgeries: Yes: Cholecystectomy, Colonoscopy, Hernia Repair, Tubal Ligation, Other. No: Pacemaker Amputation: No Fractures: No - *Social History Smoking Status: Current every day smoker Tobacco Type: cigarettes # Packs/Day (cigarettes): 1 Alcohol Intake: never Substance Use Type: denies use *Occupational Status:: employed Housing: house Household Members: spouse *Travel in the last 8 weeks: None Family Hx:: Cancer Review of Systems - Review of Systems Review of systems:: pertinent systems reviewed and negative unless documented below - Constitutional Denies body ache(s), Denies fatigue - Eyes Denies blurry vision, Denies double vision (Follow-up) - ENT Denies change in voice, Denies dizziness - *Cardiovascular Reports chest pain, Reports chest pain at rest, Denies excessive sweating, Denies shortness of breath - *Respiratory Denies chest congestion, Denies shortness of breath - *Gastrointestinal Denies abdominal pain, Denies change in bowel habits - *Musculoskeletal Denies joint pain, Denies back pain - Integumentary/Breasts Denies changing lesions, Denies yellowing of the skin - *Neurologic Denies seizure-like activity - Psychiatric Denies anxiety, Denies confusion - Endocrine Denies cold intolerance, Denies increased thirst - Hematologic/Lymphatic Denies easy bleeding, Denies easy bruising - Allergic/Immunologic Denies GI upset with certain foods, Denies tongue swelling Exam Vital signs and Labs for Last 24 Hours: Temp Pulse Resp BP Pulse Ox 98.1 F 55 L 16 120/61 97 02/07/22 08:00 02/07/22 08:00 02/07/22 08:00 02/07/22 08:00 02/07/22 08:00 Laboratory Results - last 24 hr 02/06/22 23:20: WBC 7.2, RBC 4.41, Hgb 14.4, Hct 41.6, MCV 94.4, MCH 32.7 H, MCHC 34.6, RDW 12.7, Plt Count 222, MPV 7.2 L, Neut % (Auto) 49.4, Lymph % (Auto) 42.2, [place] % (Auto) 5.7, Eos % (Auto) 1.8, Baso % (Auto) 0.7, Neut # (Auto) 3.5, Lymph # (Auto) 3.0, [place] # (Auto) 0.4, Eos # (Auto) 0.1, Baso # (Auto) 0.1, ESR 17 02/06/22 23:20: Sodium 138, Potassium 3.5, Chloride 102, Carbon Dioxide 31 H, Anion Gap 8.5, BUN 17, Creatinine 0.70, Estimated Creat Clear 64, Estimated GFR 84, Est GFR ( Amer) 102, Glucose 131 H, Calcium 9.6, Total Bilirubin 0.5, Direct Bilirubin 0.0, Conjugated Bilirubin 0.0, Indirect Bilirubin 0.5, Unconjugated Bilirubin 0.7, AST 34, ALT 18, Alkaline Phosphatase 85, Troponin I < 0.01, C-Reactive Protein 2.4, NT-Pro-B Natriuret Pep 82.8, Total Protein 6.7, Albumin 4.1, Procalcitonin < 0.030 02/07/22 00:51: SARS-CoV-2 (PCR) Not detected, Influenza A Untype (PCR) Not detected, Influenza Type B (PCR) Not detected 02/07/22 02:14: Troponin I < 0.01 02/07/22 05:56: Troponin I < 0.01 02/07/22 05:56: WBC 5.1 D, RBC 3.75 L, Hgb 12.7 D, Hct 36.8 L, MCV 97.9, MCH 33.8 H, MCHC 34.5, RDW 13.5, Plt Count 166 D, MPV 8.3, Neut % (Auto) 59.9, Lymph % (Auto) 33.2, [place] % (Auto) 5.0, Eos % (Auto) 0.9, Baso % (Auto) 1.0, Neut # (Auto) 3.1, Lymph # (Auto) 1.7, [place] # (Auto) 0.3, Eos # (Auto) 0.1, Baso # (Auto) 0.1 02/07/22 05:56: Sodium 138, Potassium 3
--- NOTE | 2022-02-07 13:26 | HMH.PHAINT ---
DISCHARGE MEDICATION COUNSELING PROVIDED. DISCUSSED NEW AMLODIPINE (FOR BP, DAILY, WATCH FOR DIZZINESS/LIGHTHEADEDNESS, POSSIBLE LOWER LEG SWELLING) AND PANTOPRAZOLE (DAILY, BEST TAKEN AT NIGHT, FOR REFLUX). PATIENT ENDORSED NO QUESTIONS AT THIS TIME.
== END 2022-02-07 13:30 | disposition home or self-care (01) ==
LOC: ER 23:36 → 2ND 02-07 01:56
PROVIDERS: Admitting Provider Emergency Medicine; Emergency Provider Emergency Medicine; PCP Nurse Practitioner Family; Visit Provider Emergency Medicine
DX: I20.8 Other forms of angina pectoris (principal); R07.9 Chest pain, unspecified; I10 Essential (primary) hypertension; F17.210 Nicotine dependence, cigarettes, uncomplicated; Z79.899 Other long term (current) drug therapy; Z20.822 Contact with and (suspected) exposure to COVID-19
CPT/HCPCS: 36415; 71046; 80048; 80061; 80076; 83735; 83880; 84145; 84484; 85025; 85651; 86140; 93005; 93306; 99285; C9803; G0378; J2405; U0003; U0005

== ENCOUNTER → 2022-02-16 06:18 | Outpatient (CLI) | payer OTHER, SELFPAY ==
--- NOTE | 2022-02-16 | CA_ITS ---
APPROVED REPORT Exam: Pharmacologic Technologist: Moraima Oconnor, Ht: 5 ft 11 in Wt: 161 lbs BSA: 1.92 m2 HR: 47 bpm BP: 124/51 mmHg Rhythm: SINUS ALVIN, OTHERWISE NORMAL Indications: CP Medical History Medical History: HTN Medications: Aspirin,,,,, HCTZ,,,,,AMLODIPINE, ASA, PROTONIX Allergies: CODEINE Cardiac Risk Factors: HTN Stress Test Details Test: LEXISCAN HR Resting HR: 67 bpm Max Heart Rate (APMHR): 155.079859 bpm Max HR Achieved: 103 bpm Target HR (85% APMHR): 131.911532 bpm % of APMHR: 66.45 Recovery HR: 83 bpm BP Resting BP: 124/51 mmHg Max BP: 149/62 mmHg Recovery BP: 124.0/58.0 mmHg ECG Resting ECG: SINUS ALVIN, OTHERWISE NORMAL Clinical Exercise duration: 04:01 min Highest Stage Achieved: Exercise capacity: 1.0 METs Stress ECG Conclusion PT HAD SOA, HEAD DISCOMFORT. NO CP. NO SIGNIFICANT CHANGES. UNREMARKABLE LEXISCAN STRESS. MYOVIEW IMAGES REPORTED SEPARATELY. Electronically signed by : Zuhair Almazan MD 02/17/2022 09:49:02
--- NOTE | 2022-02-16 06:32 | NM_ITS ---
APPROVED REPORT Exam: Nuclear Stress Test Indication: C.P., HTN, TOB USE, SOB, FATIGUE Patient Location: Outpatient Stress Tech: Mi Lowe [place] Tech:JARRELL Oneill RT(R)(N) Ht: 5 ft 11 in Wt: 161 lbs Bra Size: 38C HR: 67 bpm BP: 124/51 mmHg BSA: 1.92 m2 TID: 1.10 BMI: 22.4 History: C.P., HTN, TOB USE, SOB, FATIGUE Procedure: Patient received a 0.4 mg of intravenous Lexiscan, resting heart rate 67 bpm, resting blood pressure 124/51 mmHg, with Lexiscan maximum heart rate achived was 103 bpm which is Less than 85 % of the maximum predicted heart rate and blood pressure was 149/62 mmHg. With Lexiscan, patient denied any complaint of chest pain. Electrocardiogram Resting electrocardiogram shows sinus rhythm, with Lexiscan there is less than 1.[address] segment depression noted from the baseline EKG. The EKG portion of the Lexiscan is nondiagnostic. Cardiac Stress and Resting SPECT Images: Cardiac Stress and Resting SPECT images were obtained using technetium 99m Myoview 30.6 mCi stress and 10.0 mCi at rest. Gated SPECT for analysis of segmental wall motion and calculation of the ejection fraction also done. Prone images were also obtained. Cardiac stress and rest SPECT may show uniform myocardial activity without segmental perfusion abnormality, computer derived ejection fraction is 57% with no regional wall motion abnormality, right ventricle is normal size and contractility. Conclusion: 1. The EKG portion of the Lexiscan is nondiagnostic. 2. No scintigraphic evidence of reversible ischemia seen, compared to ejection fraction 57% with no regional wall motion abnormality, right ventricle is normal size and contractility. 3. Normal Lexiscan Myoview study. Electronically signed by : Zuhair Almazan MD 02/17/2022 09:50:51
== END ==
LOC: RAD 06:19
PROVIDERS: PCP Nurse Practitioner Family; Visit Provider Physician Assistant
DX: R07.9 Chest pain, unspecified (principal); Z72.0 Tobacco use
CPT/HCPCS: 78452; 93017; A9502; J2785

== ENCOUNTER → 2022-02-24 08:06 | Outpatient (CLI) | payer OTHER, SELFPAY ==
--- NOTE | 2022-02-24 08:38 | CT_ITS ---
FINAL REPORT CLINICAL HISTORY: dyspnea COMPARISON: January 13, 2021 FINDINGS: Thin section axial CT images of the chest were obtained with contrast. 3D reformatted images were also obtained. This study was performed with techniques to keep radiation doses as low as reasonably achievable (ALARA). Individualized dose reduction techniques using automated exposure control or adjustment of mA and/or kV according to the patient's size were employed. There is no evidence of pulmonary embolism. There is no evidence of thoracic aortic aneurysm or dissection. There is no evidence of mediastinal or hilar mass or adenopathy. There is a right upper lobe nodule measuring 7 mm, that previously measure 7 mm, and is best seen on image 35. There is moderate to severe emphysema. There is bilateral apical scarring that is stable. There are several calcified granulomas. Limited images of the upper abdomen demonstrate multiple hepatic cysts. IMPRESSION: No evidence of pulmonary embolism. Right upper lobe nodule, stable. Moderate to severe emphysema. Reviewed, Interpreted and Dictated by Roscoe Becerril III, MD Transcribed by Bee Han Authenticated and [facility]
--- NOTE | 2022-02-24 08:38 | US_ITS ---
FINAL REPORT CLINICAL HISTORY: tobacco use; family history of aaa; hypertension FINDINGS: Limited sonographic images were obtained of the abdomen to evaluate the abdominal aorta and iliac arteries. The abdominal aorta measures up to 2.3 cm in greatest dimension. There is a mild amount of plaque in the aorta. The iliac arteries are within normal limits. IMPRESSION: No evidence of abdominal aortic aneurysm. Reviewed, Interpreted and Dictated by Roscoe Becerril III, MD Transcribed by Nessa Ritchie Authenticated and [facility]
[2022-02-24 08:39] LABS: Blood Urea Nitrogen 20 mg/dl (7-17); Estimated Glomerular Filt Rate 100 ml/min (>60); GFR (African American) 121 ML/MIN (>60)
== END ==
LOC: RAD 08:07
PROVIDERS: PCP Nurse Practitioner Family; Visit Provider Nurse Practitioner Family
DX: R06.00 Dyspnea, unspecified (principal); I10 Essential (primary) hypertension; Z72.0 Tobacco use; Z82.49 Family history of ischemic heart disease and other diseases of the circulatory system
CPT/HCPCS: 71275; 76770; 82565; 84520; Q9967

== ENCOUNTER 2022-04-05 15:00 | Emergency (ER) | payer OTHER, SELFPAY ==
[2022-04-05 15:15] VITALS: BP 135/78; PULSE 76; RESP 21; TEMP 36.6; O2SAT 96; BMI 22.3
--- NOTE | 2022-04-05 15:30 | HMH.EDUTC ---
[facility] Disposition Clinical Impression: Encounter for laboratory testing for COVID-19 virus Disposition: Home, Self-Care Condition on Discharge: Good Instructions: DI for COVID-19 (Suspected or Confirmed ), Preventing the Spread of Coronavirus Discharge Instructions Additional Instructions: *Monitor Temp, Over the counter Motrin or Tylenol as directed/as needed Tylenol every 4 hours and Motrin every 6 hours (as long as your family doctor has told you that you can take it) for fever or pain. and straight to ER if unable to lower temp less than 101.0 after medication given *Warm salt water gargles may help to soothe the throat *Throat Lozenges *Warm fluids like tea with honey may help to soothe the throat *Sleep elevated *Humidifier/Vaporizer Follow up IMMEDIATELY for new or worsening symptoms or no Noticeable improvement over the next 48-72 hours. 911 for difficulty breathing or swallowing You were tested for today for COVID19 your test result should be back in the next 24-48 hours, you may check your result on the [facility] My Health Portal Make sure to take your Vitamins Vit. C Vit D and Zinc if you can take them Referrals: Mercy Salas APRN [Primary Care Provider] - As needed Forms: Work/School Release Time of Disposition: 15:36 Medical Decision Making - Hilario Inquiry Pt receiving controlled substance: No Hilario was queried for this patient: No Vital Signs: 04/05/22 15:15 Temperature 97.9 F Temperature Source Oral Pulse Rate [Right Brachial] 76 Respiratory Rate 21 Blood Pressure [Right Arm] 135/78 Blood Pressure Mean [Right Arm] 97 Blood Pressure Source [Right Arm] Automatic Cuff Blood Pressure Position [Right Arm] Sitting 02 Sat by Pulse Oximetry 96 Oxygen Delivery Method Room Air Orders (Tests/Meds): ORDERS Category Date Time Status Covid-19 Nasal PCR ([facility]) Routine Lab 04/05/22 15:27 Ordered Medical Decision Narrative: Patient states that she had dizziness this morning but not right now Discussed with patient and she described it as feeling off balance' but states the room wasnt spinning discussed with patient about transfer to the ED for further testing and she declined States that she just wanted to get tested for COVID [facility] HPI - General Stated complaint: dizziness, hot flashes Time Seen by Provider: 04/05/22 15:30 Mode of Arrival: Ambulatory Source of Information: Patient Limitations: No Limitations Description of Symptoms (Recalled from Triage Doc. by RN): PATIENT C/O INTERMITTEN DIZZINESS AND HOT FLASHES SINCE THIS MORNING. RECENTLY EXPOSED TO COVID HEENT Symptoms (Recalled from RN notes): Yes Resp Symptoms (Recalled from RN notes): No Skin Symptoms (Recalled from RN notes): No MS Symptoms (Recalled from RN notes): No Functional Status (Recalled from RN notes): WNL - History of Present Illness Provider Complaint: Patient states that she had some dizziness this morning which is now better and having hot flashes all day on and off like she may have had a fever States that her grandson had COVID a week or so ago and several people at work so her boss wanted her to come and get tested for COVID - Related Data Home Medications Medication Instructions Recorded Confirmed Aspirin [Aspir 81] 81 mg PO DAILY 09/30/18 03/22/22 hydroCHLOROthiazide 12.5 mg PO DAILY 06/17/21 03/22/22 [Hydrochlorothiazide 12.5mg Tab] Previous Rx's Medication Instructions Recorded Amlodipine Besylate [Norvasc 5mg 5 mg PO DAILY 30 Days #30 tab 02/07/22 tablet] pantoprazole 40 mg tablet,delayed 40 mg PO HS #30 tab 03/22/22 release Allergies Allergy/AdvReac Type Severity Reaction Status Date / Time codeine AdvReac Unknown NA-NAUSEA/V Verified 03/22/22 14:58 OMITING - Worker's Comp Is this a Worker's Comp case?: No [facility] History - Hepatitis A Screen Attestation statement:: This patient has been screened for Hepatitis A risk factors. I have reviewed the patien
[2022-04-05 15:35] VITALS: BP 135/78; PULSE 76; RESP 21; TEMP 36.6; O2SAT 96
== END 2022-04-05 15:48 | disposition home or self-care (01) ==
PROVIDERS: Emergency Provider Nurse Practitioner; PCP Nurse Practitioner Family
DX: R42 Dizziness and giddiness (principal); Z20.822 Contact with and (suspected) exposure to COVID-19
CPT/HCPCS: 99212; C9803; G0463; U0003; U0005

== ENCOUNTER → 2022-07-03 07:53 | Outpatient (CLI) | payer OTHER, SELFPAY ==
--- NOTE | 2022-07-03 09:53 | PC.NURSE ---
PFT and 6 Minute Walk test completed without incident. Albuterol 0.083% given via HHN, per protocol, Pt tolerated tx well.
== END ==
LOC: RT 07:54
PROVIDERS: PCP Nurse Practitioner Family; Visit Provider Internal Medicine Pulmonary Disease
DX: R06.09 Other forms of dyspnea (principal)
CPT/HCPCS: 94060; 94618; 94726; 94729

== ENCOUNTER 2022-09-20 11:31 | Emergency (ER) | payer OTHER, SELFPAY ==
[2022-09-20 11:50] VITALS: BP 149/75; PULSE 72; RESP 20; TEMP 36.3; O2SAT 99; BMI 23.4
--- NOTE | 2022-09-20 12:06 | EXP.UTC ---
Discharge Plan Disposition Patient Disposition: Home, Self-Care Condition: Good Prescriptions Prescriptions: No Action aspirin 81 MG tablet,delayed release (DR/EC) 81 mg PO DAILY hydrochlorothiazide 12.5 MG tablet 12.5 mg PO DAILY pantoprazole 40 mg tablet,delayed release (DR/EC) 40 mg PO DAILY Label Comments: TAKE ONE TABLET BY MOUTH EVERY DAY AT BEDTIME darifenacin 7.5 mg tablet extended release 24 hr 7.5 mg PO DAILY Label Comments: TAKE ONE TABLET BY MOUTH EVERY DAY Referrals Follow up/Referrals: Mercy Salas APRN [Primary Care Provider] - See instructions Activity Restrictions/Add. Instructions Additional Instructions/Restrictions: Make sure that you are drinking plenty of fluids Follow up with Urology as scheduled Straight to ER if any worsening of symptoms or any life threatening symptoms Clinical Impressions Clinical Impression: Urinary problem Instructions Patient Instructions: Blood in Urine, DI for Flank Pain Discharge ED Provider: Lulú Jacob [facility] General Stated complaint: poss UTI, cough Mode of Arrival: Ambulatory Source of Information: Patient Limitations: No Limitations Time Seen by Provider: 09/20/22 12:06 Description of Symptoms (Recalled from Triage Doc. by RN): PATIENT C/O RIGHT LOWER BACK PAIN AND BLOOD IN URINE X 2 WEEKS, AND COUGH/RUNNY NOSE SINCE LAST NIGHT HEENT Symptoms (Recalled from RN notes): Yes Resp Symptoms (Recalled from RN notes): Yes Skin Symptoms (Recalled from RN notes): No MS Symptoms (Recalled from RN notes): No Functional Status (Recalled from RN notes): WNL History of Present Illness Provider Complaint: Patient states that she has appointment with Urology on Sunday States she has been having achy like pain in her lower back and blood in her urine on and off for the last couple weeks States that she has been dx with prolapsed uterus States that she was worried that she may have a UTI Denies burning with urination States that she has also had cough and runny nose since last night Related Data Home Medications Medication Instructions Recorded Confirmed aspirin 81 mg tablet,delayed 81 mg PO DAILY heart health 09/30/18 09/20/22 release hydrochlorothiazide 12.5 mg tablet 12.5 mg PO DAILY Fluid 06/17/21 09/20/22 darifenacin 7.5 mg tablet,extended 7.5 mg PO DAILY . 09/20/22 09/20/22 release 24 hr pantoprazole 40 mg tablet,delayed 40 mg PO DAILY GERD 09/20/22 09/20/22 release Allergies Allergy/AdvReac Type Severity Reaction Status Date / Time codeine AdvReac Unknown NA-NAUSEA/V Verified 07/13/22 10:04 OMITING Worker's Comp Is this a Worker's Comp case?: No PFS PFS Disclaimer: The information contained in this section may have been updated after the patient was seen, as this information can be updated by other users. Medical History (Updated 09/20/22 @ 12:22 by Lulú Jacob APRN) COPD mixed type Dyspnea Family history of aortic aneurysm History of smoking 30 or more pack years Hypertension Lung nodule Prolapse of female pelvic organs Pulmonary emphysema Shortness of Breath Tobacco abuse counseling Tobacco abuse disorder Surgical History History of cholecystectomy History of hernia surgery History of lumbar surgery History of tubal ligation Family History Other COPD (chronic obstructive pulmonary disease) Social History (Updated 09/20/22 @ 12:04 by Lauren Rodriguez RN) Smoking Status: Current every day smoker tobacco type: cigarettes packs per day: 1 second hand exposure: No alcohol intake: never substance use type: denies use current occupational status: employed Travel in the last 8 weeks: None household members: spouse housing: house current occupational exposures/hazards: No caffeine: Yes ROS Obtained: Yes All systems reviewed & no additional
[2022-09-20 12:18] VITALS: BP 149/75; PULSE 72; RESP 20; TEMP 36.3; O2SAT 99
[2022-09-20 12:19] LABS: Apearance,Urine Clear (Clear); Color,Urine Yellow (Yellow)
[2022-09-20 12:20] LABS: Bilirubin,Urine Negative (Negative); Blood, Urine Trace (Negative); Glucose,Urine (UA) Negative (Negative); Ketones,Urine Negative (Negative); Protein,Urine Negative (Negative); Specific Gravity, Urine 1.025 (1.005-1.030); UTC Leukocyte Esterase,Urine Negative (Negative); UTC Nitrate,Urine Negative (Negative); Urobilinogen,Urine 0.2 EU/dl (0.2)
== END 2022-09-20 12:22 | disposition home or self-care (01) ==
PROVIDERS: Emergency Provider Nurse Practitioner; PCP Nurse Practitioner Family
DX: R31.9 Hematuria, unspecified (principal); M54.50 Low back pain, unspecified
CPT/HCPCS: 81003; 99212; G0463

== ENCOUNTER 2022-09-21 07:11 | Emergency (ER) | payer OTHER, SELFPAY ==
[2022-09-21 07:12] VITALS: BP 133/55; PULSE 84; RESP 18; TEMP 36.8; O2SAT 99; BMI 22.9
--- NOTE | 2022-09-21 07:38 | CT_ITS ---
FINAL REPORT TECHNIQUE: Noncontrast CT exam of the abdomen and pelvis. This study was performed with techniques to keep radiation doses as low as reasonably achievable (ALARA). Individualized dose reduction techniques using automated exposure control or adjustment of mA and/or kV according to the patient''s size were employed. CLINICAL HISTORY: flank pain. difficulty voiding COMPARISON: 09/30/2018 FINDINGS: Abdomen: Lung bases are clear. There are a few hepatic cysts. There is stable mild splenomegaly. The pancreas and adrenal glands have a normal CT appearance in their limited unenhanced state. The gallbladder is no longer seen. And is presumably surgically absent or severely contracted. However there are hyperdensities within the cystic duct which is suspicious of stones. There is no bowel obstruction. The kidneys show no stone disease or hydronephrosis. No obvious renal mass is present. No ureteral stones are present. Pelvis: The appendix is not visualized but there are no secondary findings suggestive of appendicitis. The pelvic bowel loops are unremarkable. There is a dominant cystic mass in the left ovary measuring 40 x 38 mm which has increased in size since the prior exam. The right ovary is not visualized. No distal ureteral stones are seen. Bladder is unremarkable. No fluid collection or adenopathy is seen. IMPRESSION: 1. No upper urinary tract stone disease. 2. Incidental note of left ovarian mass showing interval enlargement. Recommend gynecological consult. 3. Presumed interval cholecystectomy with small stones suspected within the cystic duct. Consider follow-up MRCP. Reviewed, Interpreted and Dictated by Nina Arambula MD Transcribed by Nessa Ritchie Authenticated and [facility] [place]
[2022-09-21 07:42] LABS: Influenza A, PCR Not Detected (NotDetected); Influenza B, PCR Not Detected (NotDetected); Microscopic, Urine URINE MICROSCOPIC (MICROSCOPIC)
--- NOTE | 2022-09-21 07:43 | HMH.EDGENADL ---
Discharge Plan Disposition Patient Disposition: Home, Self-Care Prescriptions Prescriptions: No Action aspirin 81 MG tablet,delayed release (DR/EC) 81 mg PO DAILY hydrochlorothiazide 12.5 MG tablet 12.5 mg PO DAILY pantoprazole 40 mg tablet,delayed release (DR/EC) 40 mg PO DAILY Label Comments: TAKE ONE TABLET BY MOUTH EVERY DAY AT BEDTIME darifenacin 7.5 mg tablet extended release 24 hr 7.5 mg PO DAILY Label Comments: TAKE ONE TABLET BY MOUTH EVERY DAY Referrals Follow up/Referrals: Mercy Salas APRN [Primary Care Provider] - See instructions Clinical Impressions Clinical Impression: Acute right flank pain Discharge ED Provider: Daron Siddiqi General Adult HPI General Chief complaint: PAIN Stated complaint: possible kidney stones, fever, cough Time Seen by Provider: 09/21/22 07:43 Mode of Arrival: Ambulatory Source of Information: Patient and Medical Record Limitations: No Limitations Description of Symptoms (Recalled from ER Triage Doc. by RN): Pt reports R flank pain and trouble urinating for approx 1 week. Pt reports began having a dry cough 2 days ago and woke up this morning with a fever. Pt reports was a [facility] yesterday for urination symptoms. History of Present Illness HPI narrative: this pt has rt flank pain over the last week w/o trauma or rash- pt reports fever at home and reports diff with urinating - seen at [facility] yesterday - no meds - Onset (ago): day(s) Location: back Severity: moderate Consistency: intermittent Associated symptoms: denies other symptoms Related Data Home Medications Medication Instructions Recorded Confirmed aspirin 81 mg tablet,delayed 81 mg PO DAILY heart health 09/30/18 09/20/22 release hydrochlorothiazide 12.5 mg tablet 12.5 mg PO DAILY Fluid 06/17/21 09/20/22 darifenacin 7.5 mg tablet,extended 7.5 mg PO DAILY . 09/20/22 09/20/22 release 24 hr pantoprazole 40 mg tablet,delayed 40 mg PO DAILY GERD 09/20/22 09/20/22 release Allergies Allergy/AdvReac Type Severity Reaction Status Date / Time codeine AdvReac Unknown NA-NAUSEA/V Verified 07/13/22 10:04 OMITING PFSH PFSH Disclaimer: The information contained in this section may have been updated after the patient was seen, as this information can be updated by other users. Medical History (Updated 09/21/22 @ 07:50 by Thuan Cortes MD) COPD mixed type Dyspnea Family history of aortic aneurysm History of smoking 30 or more pack years Hypertension Lung nodule Prolapse of female pelvic organs Pulmonary emphysema Shortness of Breath Tobacco abuse counseling Tobacco abuse disorder Surgical History History of cholecystectomy History of hernia surgery History of lumbar surgery History of tubal ligation Family History Other COPD (chronic obstructive pulmonary disease) Social History (Updated 09/20/22 @ 12:04 by Lauren Rodriguez RN) Smoking Status: Current every day smoker tobacco type: cigarettes packs per day: 1 second hand exposure: No alcohol intake: never substance use type: denies use current occupational status: employed Travel in the last 8 weeks: None household members: spouse housing: house current occupational exposures/hazards: No caffeine: Yes ROS Obtained: Yes All systems reviewed & no additional complaints except as documented Physical Exam General General appearance: alert Head Head exam: normocephalic Eye Eye exam: Present PERRL and EOMI ENT ENT exam: Present mucous membranes moist Neck Neck exam: Present trachea midline Respiratory Respiratory exam: Present normal lung sounds bilaterally; Absent respiratory distress Cardiovascular Cardiovascular exam: Present regular rate Abdominal Exam Abdominal exam: Present soft; Absent tenderness or guarding Extremities Exam Extremities exam: Present full
[2022-09-21 07:48] LABS: Appearance,Urine CLEAR (Clear); Bilirubin,Urine Negative (Negative); Blood, Urine 2+ (Negative); Color,Urine YELLOW (Yellow); Glucose,Urine (UA) Negative (Negative); Ketones,Urine Negative (Negative); Leukocyte Esterase,Urine Negative (Negative); Nitrate,Urine Negative (Negative); Protein,Urine Negative (Negative)
[2022-09-21 07:50] LABS: Basophils # 0.1 K/mm3 (0-0.2); Basophils % 2.7 % (0.1-2.0); Eosinophils # 0.1 K/mm3 (0.0-0.4); Lymphocytes # 0.7 K/mm3 (0.7-4.5); Lymphocytes % 14.6 % (10-50); Mean Corpuscular HGB Conc 31.8 g/dL (31.8-35.4); Mean Corpuscular Hemoglobin 31.2 pg (27.0-31.2); Mean Corpuscular Volume 98.2 fl (81-99); Monocytes # 0.3 K/mm3 (0.1-1.0); Monocytes % 6.6 % (1.7-9.3); Neutrophils # 3.6 K/mm3 (1.8-7.8); Neutrophils % 75.1 % (37.0-80.0); Platelet Count 187 K/mm3 (142-424); Red Blood Count 4.48 M/mm3 (4.20-5.40); Red Cell Distribution Width 13.4 % (11.5-17.5); White Blood Count 4.9 K/mm3 (4.8-10.8)
[2022-09-21 07:52] LABS: Alanine Aminotransferase 17 U/L (12-78); Albumin Level 4.5 g/dl (3.5-5.0); Albumin/Globulin Ratio 1.7 (1.1-1.8); Alkaline Phosphatase 80 U/L (38-126); Anion Gap 5.8 mEq/L (5-15); Aspartate Amino Transferase 26 U/L (14-36); Bilirubin,Total 0.6 mg/dl (0.2-1.3); Blood Urea Nitrogen 15 mg/dl (7-17); Calcium 8.8 mg/dl (8.4-10.2); Carbon Dioxide 29 mmol/L (22.0-30.0); Chloride 103 mmol/L (98-107); Creatinine Clearance Estimated 64 mL/min (50-200); Estimated Glomerular Filt Rate 100 ml/min (>60); GFR (African American) 121 ML/MIN (>60); Globulin 2.6 g/dL (1.3-3.2); Glucose 91 mg/dl (74-100); Potassium 3.8 mmoL/L (3.5-5.1); Sodium 134 mmol/L (136-145); Total Protein,Serum 7.1 g/dl (6.3-8.2)
--- NOTE | 2022-09-21 07:53 | PC.NURSE ---
pt return from CT
[2022-09-21 08:00] VITALS: BP 129/51; PULSE 80; RESP 18; O2SAT 97
[2022-09-21 08:01] LABS: RBC,Urine Occasional #/hpf (0-3)
[2022-09-21 08:17] LABS: Coronavirus 19, PCR Detected (NotDetected)
[2022-09-21 08:30] VITALS: BP 115/57; PULSE 69; RESP 18; O2SAT 96
--- NOTE | 2022-09-21 09:09 | HMH.EDGENADL ---
Discharge Plan Disposition Patient Disposition: Home, Self-Care Prescriptions Prescriptions: New Paxlovid (EUA) 300 mg (150 mg x 2)-100 mg tablets,dose pack See Rx Instructions .ROUTE .COMPLEX Qty: 30 0RF Rx Instructions: take TWO 150 mg tablets of nirmatrelvir with ONE 100 mg tablet of ritonavir twice daily for 5 days No Action aspirin 81 MG tablet,delayed release (DR/EC) 81 mg PO DAILY hydrochlorothiazide 12.5 MG tablet 12.5 mg PO DAILY pantoprazole 40 mg tablet,delayed release (DR/EC) 40 mg PO DAILY Label Comments: TAKE ONE TABLET BY MOUTH EVERY DAY AT BEDTIME darifenacin 7.5 mg tablet extended release 24 hr 7.5 mg PO DAILY Label Comments: TAKE ONE TABLET BY MOUTH EVERY DAY Referrals Follow up/Referrals: Mercy Salas APRN [Primary Care Provider] - See instructions Activity Restrictions/Add. Instructions Additional Instructions/Restrictions: Please follow up with Dr Desai Gynecology for Ovarian Mass. Please follow up with Gastroenterology for outpatient MRCP. Return for any concerns in next 8 hours. Clinical Impressions Clinical Impression: Acute right flank pain Discharge ED Provider: Daron Siddiqi General Adult HPI General Chief complaint: PAIN Stated complaint: possible kidney stones, fever, cough Time Seen by Provider: 09/21/22 07:43 Mode of Arrival: Ambulatory Source of Information: Patient and Medical Record Limitations: No Limitations Description of Symptoms (Recalled from ER Triage Doc. by RN): Pt reports R flank pain and trouble urinating for approx 1 week. Pt reports began having a dry cough 2 days ago and woke up this morning with a fever. Pt reports was a [facility] yesterday for urination symptoms. History of Present Illness HPI narrative: 66 yo F with 1 week of right flank pain dull nonradiating. She was evaluated at urgent care yesterday and had positive hematuria. Concern for possible kidney stone however she was in no distress they offered emergency CT evaluation however she wanted to attempt symptomatic management. She also has mild cough no distress no shortness of air no chest pain abdominal pain nausea or vomiting. No fever. Onset (ago): week(s) (1) Location: back Severity: moderate Associated symptoms: denies other symptoms Related Data Home Medications Medication Instructions Recorded Confirmed aspirin 81 mg tablet,delayed 81 mg PO DAILY [facility] 09/30/18 09/20/22 release hydrochlorothiazide 12.5 mg tablet 12.5 mg PO DAILY Fluid 06/17/21 09/20/22 darifenacin 7.5 mg tablet,extended 7.5 mg PO DAILY . 09/20/22 09/20/22 release 24 hr pantoprazole 40 mg tablet,delayed 40 mg PO DAILY GERD 09/20/22 09/20/22 release Previous Rx's Medication Instructions Recorded nirmatrelvir 300 mg (150 mg See Rx Instructions PO .COMPLEX 09/21/22 x2)-ritonavir 100 mg tablet,dose #30 tabs pack(EUA) (Paxlovid) Allergies Allergy/AdvReac Type Severity Reaction Status Date / Time codeine AdvReac Unknown NA-NAUSEA/V Verified 07/13/22 10:04 OMITING PFSH PFSH Disclaimer: The information contained in this section may have been updated after the patient was seen, as this information can be updated by other users. Medical History (Updated 09/21/22 @ 07:50 by Thuan Cortes MD) COPD mixed type Dyspnea Family history of aortic aneurysm History of smoking 30 or more pack years Hypertension Lung nodule Prolapse of female pelvic organs Pulmonary emphysema Shortness of Breath Tobacco abuse counseling Tobacco abuse disorder Surgical History History of cholecystectomy History of hernia surgery History of lumbar surgery History of tubal ligation Family History Other COPD (chronic obstructive pulmonary disease) Social History (Updated 09/20/22 @ 12:04 by Lauren Rodriguez RN) Smoking Status: Current every day smo
--- NOTE | 2022-09-21 09:10 | PC.NURSE ---
per tapping machine operator automatic message left for dr. alamo.
--- NOTE | 2022-09-21 09:18 | PC.NURSE ---
WYATT AGUIRRE speaking with dr. alamo
--- NOTE | 2022-09-21 09:21 | PC.NURSE ---
DR. ELLIOTT PAGED AT THIS TIME
--- NOTE | 2022-09-21 09:25 | PC.NURSE ---
DR KATE SPEAKING WITH DR. ELLIOTT
--- NOTE | 2022-09-21 09:28 | PC.NURSE ---
APPOINTMENT MADE WITH DR. ELLIOTT SUNDAY AT 2:30
[2022-09-21 09:45] VITALS: BP 118/64; PULSE 73; RESP 18; TEMP 36.8; O2SAT 98
== END 2022-09-21 09:45 | disposition home or self-care (01) ==
PROVIDERS: Emergency Medicine; Emergency Provider Emergency Medicine; PCP Nurse Practitioner Family
DX: R10.9 Unspecified abdominal pain (principal); J44.9 Chronic obstructive pulmonary disease, unspecified; I10 Essential (primary) hypertension; R91.8 Other nonspecific abnormal finding of lung field; J43.9 Emphysema, unspecified; F17.210 Nicotine dependence, cigarettes, uncomplicated; Z90.49 Acquired absence of other specified parts of digestive tract
CPT/HCPCS: 74176; 80053; 81001; 85025; 96361; 96374; 96375; 99285; C9803; J2405; U0003; U0005

== ENCOUNTER → 2022-10-10 08:25 | Outpatient (CLI) | payer OTHER, SELFPAY ==
--- NOTE | 2022-10-10 08:25 | US_ITS ---
FINAL REPORT TECHNIQUE: Sonographic images of the pelvis were obtained transvaginally. CLINICAL HISTORY: ovarian cyst and pmb FINDINGS: The uterus is anteverted and anteflexed. It measures 7.6 x 3.3 x 4.5 cm. There is a small amount of fluid in the endometrium. The endometrial stripe measures 2 mm. The myometrium is unremarkable. There is a hyperechoic abnormality in the cervix that could represent a complex nabothian cyst. Solid abnormality cannot be excluded.. The right ovary measures 1.4 x 1.7 x 1.0 cm. It is normal in appearance. The left ovary measures 4.9 x 5.9 x 3.6 cm. There is a 5.7 cm complex cyst in the left ovary with at least 1 thickened septa. Color imaging to the ovaries is within normal limits. There is no free fluid. IMPRESSION: Small amount of fluid in the endometrial cavity which may be normal. Endometrial stripe is normal size for patient age. Large left ovarian cyst with 1 thickened septa. Given patient age cystic epithelial neoplasm cannot be excluded. Recommend gynecologic consultation. Abnormality in the cervix could represent a complex nabothian cyst but solid lesion cannot be excluded. Consider follow-up with color imaging. Reviewed, Interpreted and Dictated by Amna Miller MD Transcribed by Solis Roberts Authenticated and . [facility]
== END ==
LOC: RAD 08:25
PROVIDERS: PCP Nurse Practitioner Family; Visit Provider Obstetrics & Gynecology
DX: N83.209 Unspecified ovarian cyst, unspecified side (principal); N95.0 Postmenopausal bleeding
CPT/HCPCS: 76830

== ENCOUNTER 2023-01-06 08:05 | Emergency (ER) | payer OTHER, SELFPAY ==
[2023-01-06 08:14] VITALS: BP 126/75; PULSE 76; RESP 20; TEMP 36.7; O2SAT 100; BMI 22.3
[2023-01-06 08:20] VITALS: BP 126/75; PULSE 76; RESP 20; TEMP 36.7; O2SAT 100; BMI 22.4
[2023-01-06 08:32] LABS: Apearance,Urine Cloudy (Clear); Color,Urine Amber (Yellow)
--- NOTE | 2023-01-06 08:32 | EXP.UTC ---
Discharge Plan Disposition Patient Disposition: Home, Self-Care Condition: Good Prescriptions Prescriptions: New ondansetron 4 mg tablet,disintegrating 4 mg PO Q8H PRN (Reason: nausea and vomiting) Qty: 10 0RF cefdinir 300 mg capsule 300 mg PO BID Qty: 20 0RF phenazopyridine [Pyridium] 200 mg tablet 200 mg PO Q8H 2 Days Qty: 6 0RF No Action Anoro Ellipta 62.5-25 mcg/actuation blister with device inhalation aspirin 81 MG tablet,delayed release (DR/EC) 81 mg PO DAILY hydrochlorothiazide 25 mg tablet 25 mg PO DAILY pantoprazole 40 mg tablet,delayed release (DR/EC) 40 mg PO DAILY Label Comments: TAKE ONE TABLET BY MOUTH EVERY DAY AT BEDTIME Referrals Follow up/Referrals: Mercy Salas APRN [Primary Care Provider] - See instructions Activity Restrictions/Add. Instructions Additional Instructions/Restrictions: *Increase fluids. Water not Soda or Tea *Start antibiotic immediately and be sure to take as ordered for the FULL length of time although you should start to see improvement over the next 48 hours *Pyridium as needed Remember this medication will turn your urine . This is normal but it will stain what ever it gets on *You should not use Pyridium for more than 48 hours. If so , follow up with your primary physician to review urine culture and ensure that antibiotic is adequate for infection *Be SURE to follow up anytime for new or worsening symptoms with your family doctor. AND in 48 hours for urine culture results with your family doctor, if you do not have a doctor then you may call back to the [facility] for urine culture results and further treatment. We do recommend that you choose and establish care with a Primary Care Physician. ?AND follow up with them ?in 10-14 days to repeat UA to ensure infection is resolved and blood no longer present *Be sure to let your PCP know that we sent urine cultures from the [facility] so they can follow up to ensure that you area the on the correct antibiotic Call your doctor office and make appointment for 48 hours (2 days from today) ?to follow up and get the results of your urine culture and further treatment Clinical Impressions Clinical Impression: UTI (urinary tract infection) Qualifiers: Urinary tract infection type: site unspecified Hematuria presence: with hematuria Qualified Code(s): N39.0 - Urinary tract infection, site not specified Instructions Patient Instructions: DI for Urinary Tract Infection (UTI), Cefdinir Discharge ED Provider: Lulú Jacob [facility] HPI General Stated complaint: Vomiting, fever, lower RT back pain Mode of Arrival: Ambulatory Source of Information: Patient Limitations: No Limitations Time Seen by Provider: 01/06/23 08:32 Description of Symptoms (Recalled from Triage Doc. by RN): PATIENT C/O VOMITING, LOW-GRADE FEVER AND LOWER BACK PAIN SINCE SUNDAY HEENT Symptoms (Recalled from RN notes): No Resp Symptoms (Recalled from RN notes): No Skin Symptoms (Recalled from RN notes): No MS Symptoms (Recalled from RN notes): No Functional Status (Recalled from RN notes): WNL History of Present Illness Provider Complaint: Patient states that she started with urinary frequency, urgency and burning on and Sunday she had some vomiting and low grade fever with pain on and off in her right lower back States that today she wasnt feeling any better so she came in to get checked thinks she may have a UTI Related Data Home Medications Medication Instructions Recorded Confirmed aspirin 81 mg tablet,delayed 81 mg PO DAILY heart health 09/30/18 10/12/22 release pantoprazole 40 mg tablet,delayed 40 mg PO DAILY GERD 09/20/22 01/06/23 release umeclidinium 62.5 mcg-vilanterol ea inhalation 10/05/22 10/12/22 25 mcg/actuation powdr for inhalation (Anoro Ellipta) hydrochlorothiazide 25 mg tablet 25 mg PO DAILY Hypertension 01/06/23 01/06/23 Previous Rx's Medication Instructions Recorded cefdinir 300 mg ca
[2023-01-06 08:33] LABS: Bilirubin,Urine Negative (Negative); Blood, Urine 1+ (Negative); Glucose,Urine (UA) Negative (Negative); Ketones,Urine Negative (Negative); Protein,Urine 1+ (Negative); Specific Gravity, Urine 1.015 (1.005-1.030); UTC Leukocyte Esterase,Urine 1+ (Negative); UTC Nitrate,Urine Positive (Negative); Urobilinogen,Urine 1 EU/dl (0.2)
[2023-01-06 08:39] VITALS: BP 126/75; PULSE 76; RESP 20; TEMP 36.7; O2SAT 100
== END 2023-01-06 08:44 | disposition home or self-care (01) ==
PROVIDERS: Emergency Provider Nurse Practitioner; PCP Nurse Practitioner Family
DX: N39.0 Urinary tract infection, site not specified (principal); B96.29 Other Escherichia coli [E. coli] as the cause of diseases classified elsewhere; R31.9 Hematuria, unspecified; M54.59 Other low back pain; F17.210 Nicotine dependence, cigarettes, uncomplicated; J44.9 Chronic obstructive pulmonary disease, unspecified; I10 Essential (primary) hypertension
CPT/HCPCS: 81003; 87086; 87088; 87186; 99212; 99214; G0463

== ENCOUNTER → 2023-01-26 14:47 | Outpatient (CLI) | payer OTHER, SELFPAY ==
--- NOTE | 2023-01-26 14:50 | XR_ITS ---
FINAL REPORT TECHNIQUE: Chest PA & Lateral CLINICAL HISTORY: PRE-OP FOR HYSTERECTOMY, COPD, HX OF SMOKING AND HIGH BP COMPARISON: 02/06/2022 FINDINGS: 2 views of the chest were performed. The heart size is normal. The mediastinum is within normal limits. Mild hyperinflation is noted. There is no acute cardiopulmonary process. There are no pleural effusions. There is no pneumothorax. The bony thorax appears intact. IMPRESSION: No acute cardiopulmonary process. Reviewed, Interpreted and Dictated by Bang Dozier MD Transcribed by Kiana Chance Authenticated and . [facility]
== END ==
PROVIDERS: PCP Nurse Practitioner Family; Visit Provider Nurse Practitioner Family
DX: Z01.810 Encounter for preprocedural cardiovascular examination (principal); J44.9 Chronic obstructive pulmonary disease, unspecified
CPT/HCPCS: 71046

== ENCOUNTER → 2023-02-26 15:22 | Outpatient (CLI) | payer OTHER, SELFPAY ==
--- NOTE | 2023-02-26 15:25 | CT_ITS ---
FINAL REPORT CLINICAL HISTORY: lung cancer screening, SMOKES 1 PK PER DAY X 50 YRS COPD FAMILY HX OF LUNG CA COMPARISON: 02/24/2022 FINDINGS: CTDI vol (mGy): 2.90 DLP: 118.[address] images of the chest were obtained using the low-dose protocol for screening. There is no evidence of mediastinal or hilar mass or adenopathy. No axillary mass or adenopathy is identified. On the lung window images, a stable, nodule is seen in the lateral right upper lobe measuring 7 mm on image 32. There is also a 2 mm nodule in the lateral left lower lobe on image 76, also stable. There is a calcified granuloma at the left lung base. Severe emphysema is seen with biapical pleural scarring. Limited imaging of the upper abdomen demonstrates several presumed hepatic cysts. IMPRESSION: Stable right upper lobe nodule and 2 mm lateral left lower lobe nodule. Lung RADS category 2. Recommend 12 month followup low-dose CT for further evaluation. Reviewed, Interpreted and Dictated by Roscoe Becerril III, MD Transcribed by Otilia Cramer Authenticated and [facility]
== END ==
PROVIDERS: PCP Nurse Practitioner Family; Visit Provider Internal Medicine Pulmonary Disease
DX: Z87.891 Personal history of nicotine dependence (principal); Z12.2 Encounter for screening for malignant neoplasm of respiratory organs
CPT/HCPCS: 71271

== ENCOUNTER 2023-04-15 14:24 | Emergency (ER) | payer OTHER, SELFPAY ==
[2023-04-15 14:30] VITALS: BP 148/61; PULSE 61; RESP 18; TEMP 36.7; O2SAT 98; BMI 23.4
--- NOTE | 2023-04-15 14:50 | EXP.UTC ---
Discharge Plan Disposition Patient Disposition: Home, Self-Care Condition: Good Prescriptions Prescriptions: No Action albuterol sulfate 90 mcg/actuation HFA aerosol inhaler 2 inh inhalation QID PRN (Reason: shortness of breath or wheezing) 90 Days Qty: 8.5 2RF Anoro Ellipta 62.5-25 mcg/actuation blister with device 1 inh inhalation DAILY 90 Days Qty: 180 2RF ipratropium-albuterol 0.5 mg-3 mg(2.5 mg base)/3 mL solution for nebulization 3 ml inhalation QID PRN (Reason: shortness of breath or wheezing) 90 Days Qty: 270 2RF Anoro Ellipta 62.5-25 mcg/actuation blister with device inhalation hydrochlorothiazide 25 mg tablet 25 mg PO DAILY Qty: 90 3RF pantoprazole 40 mg tablet,delayed release (DR/EC) See Rx Instructions .ROUTE .COMPLEX Qty: 30 5RF Dose Instruction: TAKE ONE TABLET BY MOUTH EVERY DAY AT BEDTIME Rx Instructions: TAKE ONE TABLET BY MOUTH EVERY DAY AT BEDTIME aspirin 81 MG tablet,delayed release (DR/EC) 81 mg PO DAILY Referrals Follow up/Referrals: Mercy Salas APRN [Primary Care Provider] - See instructions Activity Restrictions/Add. Instructions Additional Instructions/Restrictions: Make sure to drink plenty of fluids like water *Monitor Temp, Over the counter Motrin or Tylenol as directed/as needed Tylenol every 4 hours and Motrin every 6 hours (as long as your family doctor has told you that you can take it) for fever or pain. and straight to ER if unable to lower temp less than 101.0 after medication given *Sleep elevated *Humidifier/Vaporizer Follow up IMMEDIATELY for new or worsening symptoms or no Noticeable improvement over the next 48-72 hours. 911 for difficulty breathing or swallowing You were tested for today for Upper Respiratory Panel with COVID19 your test result should be back in the next 24-48 hours, you may check your results on the [facility] [facility] Portal Clinical Impressions Clinical Impression: Burning with urination Instructions Patient Instructions: DI for COVID-19 (Suspected or Confirmed ), Preventing the Spread of Coronavirus Discharge Instructions Discharge ED Provider: Lulú Jacob [facility] [place] HPI General Stated complaint: possible UTI, cough Mode of Arrival: Ambulatory Source of Information: Patient Limitations: No Limitations Time Seen by Provider: 04/15/23 14:50 Description of Symptoms (Recalled from Triage Doc. by RN): PATIENT STATES SHE HAD SOME BURNING WITH URINATION LAST WEEK, BUT STATES THE BURNING STOPPED AFTER SHE TOOK SOME LEFTOVER ANTIBIOTICS AT HOME. SHE ALSO C/O COUGH AND HEADACHE X 1 WEEK, RECENTLY EXPOSED TO COVID HEENT Symptoms (Recalled from RN notes): Yes Resp Symptoms (Recalled from RN notes): Yes Skin Symptoms (Recalled from RN notes): No MS Symptoms (Recalled from RN notes): No Functional Status (Recalled from RN notes): WNL History of Present Illness Provider Complaint: Patient states that last week she was having some burning with urination and she found some left over antibiotics and she took them States that burning is a little better now but wanted to get her urine checked to see if she may have a UTI States that also she has been having cough and runny nose and she was recently around someone that had COVID so she wanted to get tested Related Data Home Medications Medication Instructions Recorded Confirmed aspirin 81 mg tablet,delayed 81 mg PO DAILY heart health 09/30/18 03/01/23 release umeclidinium 62.5 mcg-vilanterol ea inhalation 10/05/22 03/01/23 25 mcg/actuation powdr for inhalation (Anoro Ellipta) Previous Rx's Medication Instructions Recorded hydrochlorothiazide 25 mg tablet 25 mg PO DAILY Hypertension #90 01/26/23 tabs albuterol sulfate 90 mcg/actuation 2 inh inhalation QID PRN shortness 03/01/23 aerosol inhaler of breath or wheezing 90 days #8.5 grams ipratropium 0.5 mg-albuterol 3 mg 3 ml inhalation QID PRN shortness 03/01/23 (2.5 mg base)/3 mL nebuliz
[2023-04-15 15:06] LABS: Coronavirus 19, PCR Not Detected (NotDetected); Influenza A, PCR Not Detected (NotDetected); Influenza B, PCR Not Detected (NotDetected); Microscopic, Urine URINE MICROSCOPIC (MICROSCOPIC)
[2023-04-15 15:16] LABS: Appearance,Urine CLEAR (Clear); Bilirubin,Urine Negative (Negative); Blood, Urine TRACE-I (Negative); Color,Urine YELLOW (Yellow); Glucose,Urine (UA) Negative (Negative); Ketones,Urine Negative (Negative); Leukocyte Esterase,Urine Negative (Negative); Nitrate,Urine Negative (Negative); PH,Urine 6.5 (5.0-8.5); Protein,Urine Negative (Negative); Specific Gravity, Urine 1.015 (1.005-1.030)
[2023-04-15 15:30] VITALS: BP 148/61; PULSE 61; RESP 18; TEMP 36.7; O2SAT 98
[2023-04-15 15:42] LABS: RBC,Urine Occasional #/hpf (0-3); WBC,Urine Occasional #/hpf (0-3)
== END 2023-04-15 15:34 | disposition home or self-care (01) ==
PROVIDERS: Emergency Provider Nurse Practitioner; PCP Nurse Practitioner Family
DX: R30.0 Dysuria (principal); R05.9 Cough, unspecified; F17.210 Nicotine dependence, cigarettes, uncomplicated; J44.9 Chronic obstructive pulmonary disease, unspecified; I10 Essential (primary) hypertension
CPT/HCPCS: 81001; 87636; 99212; 99213; G0463

== ENCOUNTER 2023-08-18 12:33 | Emergency (ER) | payer OTHER, SELFPAY ==
[2023-08-18] VITALS (12 sets, daily range): BP systolic 100–144; BP diastolic 38–95; PULSE 73–103; RESP 16–20; TEMP 36.6–36.7; O2SAT 96–99; BMI 22.3
--- NOTE | 2023-08-18 13:27 | PC.NURSE ---
pt resting in bed no needs at this time, at bs
--- NOTE | 2023-08-18 13:53 | PC.NURSE ---
pt to restroom
--- NOTE | 2023-08-18 14:00 | CT_ITS ---
PROCEDURE INFORMATION: Exam: CT Abdomen And Pelvis With Contrast Exam date and time: 08/18/2023 3:06 PM Age: 67 years old Clinical indication: Nausea and vomiting; Additional info: Rlq abd pain TECHNIQUE: Imaging protocol: Computed tomography of the abdomen and pelvis with contrast. Radiation optimization: All CT scans at this facility use at least one of these dose optimization techniques: automated exposure control; mA and/or kV adjustment per patient size (includes targeted exams where dose is matched to clinical indication); or iterative reconstruction. Contrast material: ISOVUE; Contrast volume: 75 ml; Contrast route: IV; REPORTING DATA: Count of CT and Cardiac NM exams in prior 12 months: This patient has received 2 known CTs and 0 known cardiac nuclear medicine studies in the 12 months prior to the current study. COMPARISON: CT ABDOMEN PELVIS WO CON 09/21/2022 7:51 AM FINDINGS: Tubes, catheters and devices: None noted. Lungs: Lung bases appear clear. Heart: No significant coronary calcifications. No cardiomegaly. No significant pericardial effusion. Liver: Normal. No mass. Gallbladder and bile ducts: Cholelithiasis. Contracted gallbladder. Prominent intra and extrahepatic ductal dilation. Consider MRCP. Pancreas: Normal. No ductal dilation. Spleen: Normal. No splenomegaly. Adrenal glands: Normal. No mass. Kidneys and ureters: Normal. No hydronephrosis. Stomach and bowel: Unremarkable. No obstruction. No mucosal thickening. Appendix: No evidence of appendicitis. Intraperitoneal space: Unremarkable. No free air. No significant fluid collection. Retroperitoneal space: No significant retroperitoneal inflammatory changes are noted. Vasculature: Unremarkable. No abdominal aortic aneurysm. Lymph nodes: Unremarkable. No enlarged lymph nodes. Urinary bladder: Unremarkable as visualized. Reproductive: Unremarkable as visualized. Bones/joints: Old appearing compression fracture L1 stable from 09/21/2022. Vacuum disc L4-L5. No acute fracture. Soft tissues: Unremarkable. IMPRESSION: 1. Cholelithiasis. Contracted gallbladder. 2. Prominent intra and extrahepatic ductal dilation. Consider MRCP.
--- NOTE | 2023-08-18 14:01 | HMH.EDGENADL ---
Discharge Plan Disposition Patient Disposition: Home, Self-Care Prescriptions Prescriptions: New ondansetron 4 mg tablet,disintegrating 4 mg PO Q8H PRN (Reason: nausea and vomiting) 4 Days Qty: 12 0RF No Action Anoro Ellipta 62.5-25 mcg/actuation blister with device 1 inh inhalation DAILY 90 Days Qty: 180 2RF ipratropium-albuterol 0.5 mg-3 mg(2.5 mg base)/3 mL solution for nebulization 3 ml inhalation QID PRN (Reason: shortness of breath or wheezing) 90 Days Qty: 270 2RF Anoro Ellipta 62.5-25 mcg/actuation blister with device inhalation hydrochlorothiazide 25 mg tablet 25 mg PO DAILY Qty: 90 3RF pantoprazole 40 mg tablet,delayed release (DR/EC) See Rx Instructions .ROUTE .COMPLEX Qty: 30 5RF Dose Instruction: TAKE ONE TABLET BY MOUTH EVERY DAY AT BEDTIME Rx Instructions: TAKE ONE TABLET BY MOUTH EVERY DAY AT BEDTIME albuterol sulfate 90 mcg/actuation HFA aerosol inhaler 2 inh inhalation QID PRN (Reason: shortness of breath or wheezing) 90 Days Qty: 8.5 2RF aspirin 81 MG tablet,delayed release (DR/EC) 81 mg PO DAILY Referrals Follow up/Referrals: Jordyn Richard APRN [Primary Care Provider] - See instructions Activity Restrictions/Add. Instructions Additional Instructions/Restrictions: At this time is felt you are safe to be discharged home. If new or worsening symptoms please do not hesitate to return the emergency department. If you notice your skin or eyes turn yellow please immediately return to the emergency department. Please present to the emergency department tomorrow for lab redraw. Please take your medication as prescribed and call the general surgery office the morning of 12?27 to have an appointment with Dr. Rainey. Clinical Impressions Clinical Impression: Abdominal pain, RLQ, Abdominal pain, RUQ, Cholelithiasis, Common bile duct dilation Instructions Patient Instructions: DI for Acute Abdominal Pain Discharge ED Provider: Sheryl Mejia General Adult HPI <Sheryl Mejia MD - Last Filed: 08/18/23 15:53> General Chief complaint: Abdominal Pain Stated complaint: abd pain, lower back pain Time Seen by Provider: 08/18/23 13:56 Mode of Arrival: Ambulatory Source of Information: Patient Limitations: No Limitations Description of Symptoms (Recalled from ER Triage Doc. by RN): Patient states that she has right sided abdomen and back pain that has been going on for 3 days. States that she has also been nauseated. History of Present Illness HPI narrative: Patient is a 67-year-old female present today with right lower quadrant abdominal pain. This has been intermittent for the last several days but she states she has had some discomfort last for weeks no obvious exacerbating or alleviating factors that she is aware of. No hematuria dysuria frequency urgency she has had some constipation in the past. Denies any fevers or chills any other vaginal complaints. Has a history of cholecystectomy and hysterectomy in the past. Related Data Home Medications Medication Instructions Recorded Confirmed aspirin 81 mg tablet,delayed 81 mg PO DAILY heart health 09/30/18 03/01/23 release umeclidinium 62.5 mcg-vilanterol ea inhalation 10/05/22 03/01/23 25 mcg/actuation powdr for inhalation (Anoro Ellipta) Previous Rx's Medication Instructions Recorded hydrochlorothiazide 25 mg tablet 25 mg PO DAILY Hypertension #90 01/26/23 tabs ipratropium 0.5 mg-albuterol 3 mg 3 ml inhalation QID PRN shortness 03/01/23 (2.5 mg base)/3 mL nebulization of breath or wheezing 90 days #270 soln mL umeclidinium 62.5 mcg-vilanterol 1 inh inhalation DAILY 90 days 03/01/23 25 mcg/actuation powdr for #180 ea inhalation (Anoro Ellipta) pantoprazole 40 mg tablet,delayed See Rx Instructions .Route 03/16/23 release .COMPLEX #30 tabs albuterol sulfate 90 mcg/actuation 2 inh inhalation QID PRN shortness 04/25/23 aerosol inhaler of breath or wheezing 90 days #8.5 gram
[2023-08-18 14:04] LABS: Microscopic, Urine URINE MICROSCOPIC (MICROSCOPIC)
[2023-08-18 14:13] LABS: Appearance,Urine CLEAR (Clear); Bilirubin,Urine Negative (Negative); Blood, Urine 1+ (Negative); Color,Urine YELLOW (Yellow); Glucose,Urine (UA) Negative (Negative); Ketones,Urine 1+ (Negative); Leukocyte Esterase,Urine Negative (Negative); Nitrate,Urine Negative (Negative); Protein,Urine Negative (Negative); Specific Gravity, Urine 1.015 (1.005-1.030)
[2023-08-18 14:27] LABS: Basophils % 0.2 % (0.1-2.0); Eosinophils # 0.1 K/mm3 (0.0-0.4); Hematocrit 41.7 % (37.0-47.0); Hemoglobin 14.2 g/dL (12.2-16.2); Lymphocytes # 0.9 K/mm3 (0.7-4.5); Lymphocytes % 6.7 % (10-50); Mean Corpuscular Hemoglobin 32.8 pg (27.0-31.2); Mean Corpuscular Volume 96.4 fl (81-99); Mean Platelet Volume 8.3 fl (7.4-10.4); Monocytes # 0.4 K/mm3 (0.1-1.0); Neutrophils # 11.8 K/mm3 (1.8-7.8); Neutrophils % 89.2 % (37.0-80.0); Platelet Count 178 K/mm3 (142-424); Red Blood Count 4.33 M/mm3 (4.20-5.40); Red Cell Distribution Width 13.3 % (11.5-17.5); White Blood Count 13.2 K/mm3 (4.8-10.8)
[2023-08-18 14:33] LABS: Chloride 98 mmol/L (98-107); Sodium 136 mmol/L (136-145)
[2023-08-18 14:36] LABS: Alanine Aminotransferase 20 U/L (12-78); Alkaline Phosphatase 85 U/L (38-126); Aspartate Amino Transferase 32 U/L (14-36); Blood Urea Nitrogen 18 mg/dl (7-17); Carbon Dioxide 29 mmol/L (22.0-30.0); Creatinine Clearance Estimated 63 mL/min (50-200); Estimated Glomerular Filt Rate 84 ml/min (>60); GFR (African American) 101 ML/MIN (>60); Lipase 97 U/L (23-300)
[2023-08-18 14:37] LABS: Albumin Level 4.8 g/dl (3.5-5.0); Albumin/Globulin Ratio 1.9 (1.1-1.8); Calcium 9.5 mg/dl (8.4-10.2); Globulin 2.5 g/dL (1.3-3.2); Glucose 117 mg/dl (74-100); MANUAL DIFFERENTIAL MANUAL DIFFERENTIAL (MANUAL DIFF); Total Protein,Serum 7.3 g/dl (6.3-8.2)
[2023-08-18 14:52] LABS: RBC,Urine Occasional #/hpf (0-3); Squamous Epithelial Cell,Urine Occasional #/hpf (0-5)
[2023-08-18 16:03] LABS: Lymphocytes % 9 % (10-50); Monocytes % 1 % (2-9); Neutrophils % 90 % (42-76); Total Cells Counted 100
[2023-08-18 16:04] LABS: Hypochromasia 1+; Platelet Estimate Normal
--- NOTE | 2023-08-18 16:59 | ECG_ITS ---
APPROVED REPORT Exam: Resting ECG HR:70 bpm ECG Measurements Heart Rate 70 AXES LA 197 P 60 QRSd 96 QRS 64 QT 394 T 62 QTc 415 Conclusion SINUS RHYTHM NORMAL ECG UNCONFIRMED REPORT Electronically signed by : Kraig Lott MD 08/22/2023 09:07:59
[2023-08-18 17:30] LABS: Troponin I < 0.01 ng/ml (0.00-0.034)
[2023-08-18 17:59] LABS: Troponin I < 0.01 ng/ml (0.00-0.034)
== END 2023-08-18 17:49 | disposition home or self-care (01) ==
PROVIDERS: Emergency Medicine; Emergency Provider Student in an Organized Health Care Education/Training Program; PCP Nurse Practitioner Family
DX: R10.31 Right lower quadrant pain (principal); R10.11 Right upper quadrant pain; K80.20 Calculus of gallbladder without cholecystitis without obstruction; K83.8 Other specified diseases of biliary tract; F17.210 Nicotine dependence, cigarettes, uncomplicated; J44.9 Chronic obstructive pulmonary disease, unspecified; I10 Essential (primary) hypertension
CPT/HCPCS: 36415; 74177; 80053; 81001; 83690; 84484; 85007; 85025; 93005; 96361; 96374; 96375; 99285; J2405; Q9967

== ENCOUNTER 2023-08-19 16:20 | Emergency (ER) | payer OTHER, SELFPAY ==
[2023-08-19 16:24] VITALS: BP 114/62; PULSE 83; RESP 20; TEMP 36.9; O2SAT 96; BMI 20.3
--- NOTE | 2023-08-19 16:31 | PC.NURSE ---
Dr. Roman at [facility] for pt eval
[2023-08-19 16:39] LABS: Basophils % 0.2 % (0.1-2.0); Eosinophils # 0.2 K/mm3 (0.0-0.4); Eosinophils % 0.8 % (0.1-12.0); Hematocrit 43.5 % (37.0-47.0); Hemoglobin 14.3 g/dL (12.2-16.2); Lymphocytes # 1.2 K/mm3 (0.7-4.5); Lymphocytes % 6.4 % (10-50); Mean Corpuscular HGB Conc 32.9 g/dL (31.8-35.4); Mean Corpuscular Hemoglobin 31.9 pg (27.0-31.2); Mean Corpuscular Volume 96.9 fl (81-99); Monocytes # 0.5 K/mm3 (0.1-1.0); Monocytes % 2.9 % (1.7-9.3); Neutrophils # 16.7 K/mm3 (1.8-7.8); Neutrophils % 89.6 % (37.0-80.0); Platelet Count 148 K/mm3 (142-424); Red Blood Count 4.49 M/mm3 (4.20-5.40); Red Cell Distribution Width 13.2 % (11.5-17.5); White Blood Count 18.7 K/mm3 (4.8-10.8)
--- NOTE | 2023-08-19 16:40 | HMH.EDGENADL ---
Discharge Plan Disposition Patient Disposition: Xfer Short-Term Hosp Chief Complaint: Recheck/Abnormal Lab/Rx Prescriptions Prescriptions: No Action Anoro Ellipta 62.5-25 mcg/actuation blister with device 1 inh inhalation DAILY 90 Days Qty: 180 2RF ipratropium-albuterol 0.5 mg-3 mg(2.5 mg base)/3 mL solution for nebulization 3 ml inhalation QID PRN (Reason: shortness of breath or wheezing) 90 Days Qty: 270 2RF Anoro Ellipta 62.5-25 mcg/actuation blister with device inhalation hydrochlorothiazide 25 mg tablet 25 mg PO DAILY Qty: 90 3RF pantoprazole 40 mg tablet,delayed release (DR/EC) See Rx Instructions .ROUTE .COMPLEX Qty: 30 5RF Dose Instruction: TAKE ONE TABLET BY MOUTH EVERY DAY AT BEDTIME Rx Instructions: TAKE ONE TABLET BY MOUTH EVERY DAY AT BEDTIME albuterol sulfate 90 mcg/actuation HFA aerosol inhaler 2 inh inhalation QID PRN (Reason: shortness of breath or wheezing) 90 Days Qty: 8.5 2RF aspirin 81 MG tablet,delayed release (DR/EC) 81 mg PO DAILY ondansetron 4 mg tablet,disintegrating 4 mg PO Q8H PRN (Reason: nausea and vomiting) 4 Days Qty: 12 0RF Referrals Follow up/Referrals: Jordyn Richard APRN [Primary Care Provider] - See instructions Activity Restrictions/Add. Instructions Additional Instructions/Restrictions: Please present immediately to [facility] emergency department for continued evaluation. Clinical Impressions Clinical Impression: Biliary colic, Transaminitis Discharge ED Provider: Yaniv Roman General Adult HPI General Chief complaint: Recheck/Abnormal Lab/Rx Stated complaint: blood check Time Seen by Provider: 08/19/23 16:23 Mode of Arrival: Ambulatory Source of Information: Patient Limitations: No Limitations Description of Symptoms (Recalled from ER Triage Doc. by RN): pt presents for redraw of blood resulting from cholecyctitis dx. History of Present Illness HPI narrative: Patient is a 67-year-old female who presents for lab redraw. I saw this patient yesterday. She has epigastric and right upper quadrant pain, has history of previous cholecystectomy with some residual left over. Yesterday patient had dilated common bile duct however this could be seen postcholecystectomy, she had no overt cholestasis on her labs and the case was discussed with general surgery who is in agreement that patient is appropriate for outpatient management however must have expedited labs redrawn to prove no early onset cholestasis. She presents here for this lab draw and has no acute changes from yesterday. Previous history: In short, patient had previous cholecystectomy in 2019. She has had 1 week of epigastric and right upper quadrant pain that has significantly decreased her p.o. from baseline. CT imaging was conducted yesterday that showed prominent intrahepatic and extrahepatic ductal dilatation with the common bile duct of 13 mm, cholelithiasis with contracted gallbladder. Given that patient had previous cholecystectomy this is a gallbladder remnant. Related Data Home Medications Medication Instructions Recorded Confirmed aspirin 81 mg tablet,delayed 81 mg PO DAILY [facility] 03/01/23 release umeclidinium 62.5 mcg-vilanterol ea inhalation 10/05/22 03/01/23 25 mcg/actuation powdr for inhalation (Anoro Ellipta) Previous Rx's Medication Instructions Recorded hydrochlorothiazide 25 mg tablet 25 mg PO DAILY Hypertension #90 01/26/23 tabs ipratropium 0.5 mg-albuterol 3 mg 3 ml inhalation QID PRN shortness 03/01/23 (2.5 mg base)/3 mL nebulization of breath or wheezing 90 days #270 soln mL umeclidinium 62.5 mcg-vilanterol 1 inh inhalation DAILY 90 days 03/01/23 25 mcg/actuation powdr for #180 ea inhalation (Anoro Ellipta) pantoprazole 40 mg tablet,delayed See Rx Instructions .Route 03/16/23 release .COMPLEX #30 tabs albuterol sulfate 90 mcg/actuation 2 inh inhalation QID HI
[2023-08-19 16:44] LABS: Alanine Aminotransferase 151 U/L (12-78); Alkaline Phosphatase 108 U/L (38-126); Aspartate Amino Transferase 132 U/L (14-36); Bilirubin,Direct 0.1 mg/dl (0.0-0.4); Bilirubin,Total 1.2 mg/dl (0.2-1.3); Blood Urea Nitrogen 18 mg/dl (7-17); Calcium 8.8 mg/dl (8.4-10.2); Carbon Dioxide 27 mmol/L (22.0-30.0); Chloride 98 mmol/L (98-107); Creatinine Clearance Estimated 59 mL/min (50-200); Estimated Glomerular Filt Rate 72 ml/min (>60); GFR (African American) 87 ML/MIN (>60); Glucose 108 mg/dl (74-100)
[2023-08-19 16:45] LABS: Albumin Level 4.3 g/dl (3.5-5.0); Albumin/Globulin Ratio 1.6 (1.1-1.8); Globulin 2.7 g/dL (1.3-3.2); Lipase 40 U/L (23-300)
[2023-08-19 16:52] LABS: MANUAL DIFFERENTIAL MANUAL DIFFERENTIAL (MANUAL DIFF)
[2023-08-19 17:00] VITALS: BP 94/55; PULSE 78; O2SAT 96
--- NOTE | 2023-08-19 17:03 | PC.NURSE ---
Spoke with Misty at [facility] center. Advised they would call back when they have a physician available.
[2023-08-19 17:08] LABS: Sodium 131 mmol/L (136-145)
[2023-08-19 17:15] VITALS: BP 117/62; PULSE 79; O2SAT 97
--- NOTE | 2023-08-19 17:19 | PC.NURSE ---
Waiting for call back from hospitalist at
--- NOTE | 2023-08-19 17:28 | PC.NURSE ---
Dr. Roman speaking with about possible transfer
[2023-08-19 17:30] VITALS: BP 107/52; PULSE 74; O2SAT 98
--- NOTE | 2023-08-19 17:34 | PC.NURSE ---
Pt accepted to [facility] by Anshu
--- NOTE | 2023-08-19 17:34 | PC.NURSE ---
pt admitted to [facility] ER. updating pt
--- NOTE | 2023-08-19 17:40 | PC.NURSE ---
report called to GEETHA montez at [facility]
[2023-08-19 17:45] VITALS: BP 88/58; PULSE 76; O2SAT 98
[2023-08-19 17:56] VITALS: BP 104/77; PULSE 81; RESP 20; TEMP 36.8; O2SAT 98
[2023-08-19 18:21] LABS: Lymphocytes % 12 % (10-50); Monocytes % 1 % (2-9); Neutrophils % 87 % (42-76); Total Cells Counted 100
[2023-08-19 18:22] LABS: Platelet Estimate Clumped
[2023-08-19 18:23] LABS: RBC Morphology Normal
== END 2023-08-19 18:00 | disposition short-term general hospital (02) ==
PROVIDERS: Emergency Provider Emergency Medicine; PCP Nurse Practitioner Family
DX: K80.50 Calculus of bile duct without cholangitis or cholecystitis without obstruction (principal); R74.01 Elevation of levels of liver transaminase levels; J44.9 Chronic obstructive pulmonary disease, unspecified; I10 Essential (primary) hypertension; E87.6 Hypokalemia
CPT/HCPCS: 80053; 82248; 83690; 85007; 85025; 99285

== ENCOUNTER 2023-08-31 09:47 | Outpatient (CLI) | payer OTHER, MEDICARE, SELFPAY ==
[2023-08-31 17:34] LABS: Basophils # 0.1 K/mm3 (0-0.2); Basophils % 0.8 % (0.1-2.0); Eosinophils # 0.2 K/mm3 (0.0-0.4); Eosinophils % 1.7 % (0.1-12.0); Hematocrit 41.7 % (37.0-47.0); Hemoglobin 13.6 g/dL (12.2-16.2); Lymphocytes # 2.8 K/mm3 (0.7-4.5); Lymphocytes % 29.4 % (10-50); Mean Corpuscular HGB Conc 32.5 g/dL (31.8-35.4); Mean Corpuscular Hemoglobin 32.4 pg (27.0-31.2); Mean Corpuscular Volume 99.6 fl (81-99); Monocytes # 0.4 K/mm3 (0.1-1.0); Monocytes % 4.5 % (1.7-9.3); Neutrophils % 63.5 % (37.0-80.0); Platelet Count 365 K/mm3 (142-424); Red Blood Count 4.19 M/mm3 (4.20-5.40); Red Cell Distribution Width 13.5 % (11.5-17.5); White Blood Count 9.5 K/mm3 (4.8-10.8)
[2023-08-31 18:01] LABS: Chloride 101 mmol/L (98-107)
[2023-08-31 18:02] LABS: Potassium 4.8 mmoL/L (3.5-5.1); Sodium 141 mmol/L (136-145)
[2023-08-31 18:04] LABS: Alanine Aminotransferase 23 U/L (12-78); Alkaline Phosphatase 84 U/L (38-126); Amylase 59 U/L (30-110); Anion Gap 12.8 mEq/L (5-15); Aspartate Amino Transferase 28 U/L (14-36); Bilirubin,Total 0.4 mg/dl (0.2-1.3); Blood Urea Nitrogen 19 mg/dl (7-17); Carbon Dioxide 32 mmol/L (22.0-30.0); Estimated Glomerular Filt Rate 63 ml/min (>60); GFR (African American) 76 ML/MIN (>60)
[2023-08-31 18:05] LABS: Albumin Level 4.1 g/dl (3.5-5.0); Albumin/Globulin Ratio 1.5 (1.1-1.8); Calcium 9.4 mg/dl (8.4-10.2); Globulin 2.7 g/dL (1.3-3.2); Glucose 101 mg/dl (74-100); Lipase 174 U/L (23-300); Total Protein,Serum 6.8 g/dl (6.3-8.2)
== END 2023-08-31 23:59 ==
PROVIDERS: PCP Nurse Practitioner Family; Visit Provider Nurse Practitioner Family
DX: K83.8 Other specified diseases of biliary tract (principal); R10.11 Right upper quadrant pain
CPT/HCPCS: 80053; 82150; 83690; 85025

== ENCOUNTER 2023-09-12 09:32 | Outpatient (CLI) | payer OTHER, SELFPAY ==
--- NOTE | 2023-09-12 09:33 | US_ITS ---
FINAL REPORT CLINICAL HISTORY: Right hepatic lobe arterial enhancement per CT COMPARISON: CT abdomen 08/18/2023 FINDINGS: Sonographic images of the right upper quadrant were obtained. The pancreas is partially obscured. Moderate biliary ductal dilatation is present in the liver, without a focal hepatic mass identified. The gallbladder has been surgically resected since the CT of August 18. The common duct remains enlarged and measures up to 11 mm in diameter. Limited images of the right kidney are unremarkable. IMPRESSION: In the interval since the abdominal CT of August 18 the gallbladder has been surgically resected. Moderate biliary ductal dilatation is present in the liver, and the common bile duct remains enlarged measuring up to 11 mm in diameter. If clinically indicated, MRCP is suggested for further evaluation. Reviewed, Interpreted and Dictated by Roscoe Becerril III, MD Transcribed by Kiana Chance Authenticated and [facility]
== END 2023-09-12 23:59 ==
LOC: RAD 09:33
PROVIDERS: PCP Nurse Practitioner Family; Visit Provider Nurse Practitioner Family
DX: R10.11 Right upper quadrant pain (principal); R74.8 Abnormal levels of other serum enzymes; R93.2 Abnormal findings on diagnostic imaging of liver and biliary tract
CPT/HCPCS: 76705

== ENCOUNTER 2024-01-25 15:01 | Outpatient (CLI) | payer OTHER, SELFPAY ==
[2024-01-25 15:18] LABS: Basophils # 0.1 K/mm3 (0-0.2); Basophils % 1.6 % (0.1-2.0); Eosinophils # 0.2 K/mm3 (0.0-0.4); Eosinophils % 2.9 % (0.1-12.0); Hematocrit 39.5 % (37.0-47.0); Hemoglobin 13.6 g/dL (12.2-16.2); Lymphocytes % 33.8 % (10-50); Mean Corpuscular HGB Conc 34.5 g/dL (31.8-35.4); Mean Corpuscular Hemoglobin 33.3 pg (27.0-31.2); Mean Corpuscular Volume 96.3 fl (81-99); Mean Platelet Volume 7.9 fl (7.4-10.4); Monocytes # 0.3 K/mm3 (0.1-1.0); Monocytes % 4.4 % (1.7-9.3); Neutrophils # 3.4 K/mm3 (1.8-7.8); Neutrophils % 57.4 % (37.0-80.0); Platelet Count 202 K/mm3 (142-424); Red Cell Distribution Width 13.9 % (11.5-17.5); White Blood Count 5.9 K/mm3 (4.8-10.8)
[2024-01-25 15:43] LABS: Alanine Aminotransferase 16 U/L (12-78); Albumin Level 4.4 g/dl (3.5-5.0); Alkaline Phosphatase 69 U/L (38-126); Amylase 57 U/L (30-110); Anion Gap 12.2 mEq/L (5-15); Aspartate Amino Transferase 25 U/L (14-36); Bilirubin,Total 0.5 mg/dl (0.2-1.3); Blood Urea Nitrogen 24 mg/dl (7-17); Calcium 9.2 mg/dl (8.4-10.2); Carbon Dioxide 28 mmol/L (22.0-30.0); Chloride 104 mmol/L (98-107); Estimated Glomerular Filt Rate 72 ml/min (>60); GFR (African American) 87 ML/MIN (>60); Globulin 2.2 g/dL (1.3-3.2); Glucose 101 mg/dl (74-100); Lipase 212 U/L (23-300); Potassium 4.2 mmoL/L (3.5-5.1); Sodium 140 mmol/L (136-145); Total Protein,Serum 6.6 g/dl (6.3-8.2)
== END 2024-01-25 23:59 | disposition home or self-care (01) ==
LOC: LAB 15:02
PROVIDERS: PCP Nurse Practitioner Family; Visit Provider Nurse Practitioner Family
DX: R93.2 Abnormal findings on diagnostic imaging of liver and biliary tract (principal); R74.8 Abnormal levels of other serum enzymes
CPT/HCPCS: 36415; 80053; 82150; 83690; 85025

== ENCOUNTER 2024-02-08 09:33 | Outpatient (CLI) | payer OTHER, SELFPAY ==
--- NOTE | 2024-02-08 09:33 | CT_ITS ---
FINAL REPORT CLINICAL HISTORY: Right sided abd pain COMPARISON: 08/18/2023 FINDINGS: CT OF THE ABDOMEN AND PELVIS WITH CONTRAST Axial CT images of the abdomen and pelvis were obtained after the administration of IV contrast. Coronal reformatted images were also obtained and reviewed.This study was performed with techniques to keep radiation doses as low as reasonably achievable (ALARA). Individualized dose reduction techniques using automated exposure control or adjustment of mA and/or kV according to the patient''s size were employed. Abdomen: There is mild emphysema at the lung bases with mild scarring.. The heart is normal in size. There is a 31 mm mass in the left liver dome which is stable and consistent with a cyst. There is mild to moderate biliary ductal dilatation to the level of the ampulla which is stable. There is a small fluid-filled structure in the gallbladder fossa. It is uncertain if this represents contracted gallbladder with a small stone or dilated cystic duct remnant with stone. Appearance is stable since the prior exam. The spleen is unremarkable. No adrenal mass is present. The pancreas has an unremarkable appearance. The kidneys are normal, without evidence of mass or hydronephrosis. The aorta is normal in caliber. There are moderate vascular calcifications. There is no free fluid or adenopathy. Pelvis: The appendix is not well-visualized. Descending and sigmoid diverticulosis is noted. The urinary bladder is unremarkable. Post hysterectomy. There is no evidence of mass or adenopathy. There is no evidence of bowel obstruction. IMPRESSION: Moderate biliary ductal dilatation of uncertain significance. Consider ERCP or MRCP. Question collapsed gallbladder with small stones versus cystic duct remnant with stone. Correlate with surgical history. Other findings are stable. No acute abnormality identified. Reviewed, Interpreted and Dictated by Roscoe Becerril III, MD Transcribed by Obdulia Rodríguez Authenticated and [facility][1]
[2024-02-08] MEDS: SODIUM CHLORIDE 0.9% 10ML SYR (RAD ONLY) 10 ML IV (10:00)
[2024-02-08] MEDS: IOPAMIDOL-370 (76%);100ML BOTTLE 75 ML IV (10:00)
== END 2024-02-08 23:59 | disposition home or self-care (01) ==
LOC: RAD 09:33
PROVIDERS: PCP Nurse Practitioner Family; Visit Provider Nurse Practitioner Family
DX: R74.8 Abnormal levels of other serum enzymes (principal); R10.31 Right lower quadrant pain; R10.11 Right upper quadrant pain; K83.8 Other specified diseases of biliary tract
CPT/HCPCS: 74177; Q9967

== ENCOUNTER 2024-02-29 14:33 | Outpatient (CLI) | payer OTHER, SELFPAY ==
--- NOTE | 2024-02-29 14:37 | CT_ITS ---
FINAL REPORT TECHNIQUE: Thin section axial images were obtained from the lung apices to the upper abdomen by computed tomography. Reformatted images were obtained and reviewed. This study was performed with techniques to keep radiation doses al low as reasonably achievable (ALARA). Individualized dose reduction techniques using automated exposure control or adjustment of mA and/or kV according to the patient's size were employed. CLINICAL HISTORY: lung cancer screening smoker 1 ppd x 50 years COMPARISON: February 26, 2023 and February 24, 2022 FINDINGS: CHEST CT LOW DOSE CTDI vol (mGy): 2.9 DLP (mGy-cm): 108 There is no axillary adenopathy. There is no mediastinal or hilar mass or adenopathy. The heart is normal in size. There is no pericardial or pleural effusion. There is moderate emphysema and bilateral pulmonary scarring. Lung window images demonstrate a 7 mm right upper lobe nodule on image #24, stable. Also noted is a 2 mm lateral left lower lobe nodule on image #65, stable. Several calcified granulomas are seen. No new mass or nodule is identified.. Limited images of the upper abdomen reveal several presumed hepatic cysts, stable.. IMPRESSION: Lung-RADS category 1. Recommend 12 month follow up low dose chest CT. Authenticated and ERN
== END 2024-02-29 23:59 | disposition home or self-care (01) ==
LOC: RAD 14:34
PROVIDERS: PCP Nurse Practitioner Family; Visit Provider Internal Medicine Pulmonary Disease
DX: F17.210 Nicotine dependence, cigarettes, uncomplicated (principal)
CPT/HCPCS: 71271

== ENCOUNTER 2024-05-01 16:52 | Outpatient (CLI) | payer OTHER, SELFPAY | END 2024-05-01 23:59 | disposition home or self-care (01) | LOC: LAB.DROPOF 05-02 16:53 | PROVIDERS: PCP Nurse Practitioner Family; Visit Provider Nurse Practitioner Family | DX: R05.1 Acute cough (principal) | CPT/HCPCS: 87635 ==

== ENCOUNTER 2024-05-05 10:00 | Outpatient (CLI) | payer OTHER, SELFPAY ==
[2024-05-05 12:01] LABS: Monoscreen (Rapid) Negative (Negative)
== END 2024-05-05 23:59 | disposition home or self-care (01) ==
LOC: LAB 10:01
PROVIDERS: PCP Nurse Practitioner Family; Visit Provider Nurse Practitioner Family
DX: J02.9 Acute pharyngitis, unspecified (principal); Z72.0 Tobacco use
CPT/HCPCS: 36415; 86318

== ENCOUNTER 2024-08-15 14:19 | Emergency (ER) | payer OTHER, SELFPAY ==
[2024-08-15 14:30] VITALS: BP 138/86; PULSE 86; RESP 18; TEMP 36.8; O2SAT 98; BMI 23.1
--- NOTE | 2024-08-15 14:48 | ED_ITS ---
Discharge Plan Disposition Patient Disposition: Home, Self-Care Condition: Good Prescriptions Prescriptions: New amoxicillin 500 mg capsule 500 mg PO TID 7 Days Qty: 21 0RF ciprofloxacin-dexamethasone 0.3-0.1 % drops,suspension 4 drp otic (ear) BID 7 Days Qty: 7.5 0RF Rx Instructions: right ear as directed No Action pantoprazole 40 mg tablet,delayed release (DR/EC) 40 mg PO HS Patient Comments: TAKE ONE TABLET BY MOUTH EVERY DAY AT BEDTIME hydrochlorothiazide 12.5 mg capsule 12.5 mg PO DAILY Patient Comments: TAKE ONE CAPSULE BY MOUTH EVERY DAY Gemtesa 75 mg tablet 75 mg PO DAILY Patient Comments: TAKE ONE TABLET BY MOUTH EVERY DAY Referrals Follow up/Referrals: Mercy Salas APRN [Primary Care Provider] - See instructions Activity Restrictions/Add. Instructions Additional Instructions/Restrictions: *Monitor Temp, Over the counter Motrin or Tylenol as directed/as needed Tylenol every 4 hours and Motrin every 6 hours (as long as your family doctor has told you that you can take it) for fever or pain. and straight to ER if unable to lower temp less than 101.0 after medication given Take medication as prescribed Use ear drops as prescribed Follow up IMMEDIATELY for new or worsening symptoms or no Noticeable improvement over the next 48-72 hours. 911 for difficulty breathing or swallowing Clinical Impressions Clinical Impression: Otitis media Instructions Patient Instructions: Middle Ear Infection, Amoxicillin Print Language Print Language: [place] Discharge ED Provider: Lulú Jacob [facility] General Stated complaint: ear pain, headache Mode of Arrival: Ambulatory Source of Information: Patient Limitations: No Limitations Time Seen by Provider: 08/15/24 14:48 Description of Symptoms (Recalled from Triage Doc. by RN): PATIENT C/O RIGHT EAR PAIN AND RINGING X 1 WEEK HEENT Symptoms (Recalled from RN notes): Yes Resp Symptoms (Recalled from RN notes): No Skin Symptoms (Recalled from RN notes): No MS Symptoms (Recalled from RN notes): No Functional Status (Recalled from RN notes): WNL History of Present Illness Provider Complaint: Patient states that she has been having pain in her right ear and feels like it is stopped up States that she cant hardly hear out of it and feels like it is ringing at times and hearing is muffled Related Data Home Medications ?Medication ?Instructions ?Recorded ?Confirmed hydrochlorothiazide 12.5 mg capsule 12.5 mg PO DAILY 08/15/24 08/15/24 pantoprazole 40 mg tablet,delayed 40 mg PO HS 08/15/24 08/15/24 release vibegron 75 mg tablet (Gemtesa) 75 mg PO DAILY 08/15/24 08/15/24 Previous Rx's ?Medication ?Instructions ?Recorded amoxicillin 500 mg capsule 500 mg PO TID 7 days #21 caps 08/15/24 ciprofloxacin 0.3 %-dexamethasone 4 drp otic (ear) BID 7 days #7.5 mL 08/15/24 0.1 % ear drops,suspension Allergies Allergy/AdvReac Type Severity Reaction Status Date / Time codeine AdvReac Unknown NA-NAUSEA/V Verified 05/05/24 09:08 OMITING Worker's Comp Is this a Worker's Comp case?: No [facility] Disclaimer: The information contained in this section may have been updated after the patient was seen, as this information can be updated by other users. Medical History COPD mixed type Cystocele with uterine prolapse Dyspnea Family history of aortic aneurysm History of smoking 30 or more pack years Hypertension Lung nodule Ovarian cyst Prolapse of female pelvic organs Pulmonary emphysema Shortness of Breath Tobacco abuse counseling Tobacco abuse disorder Surgical History History of cholecystectomy History of hernia surgery History of lumbar surgery History of tubal ligation Family History Other COPD (chronic obstructive pulmonary disease) Social History Smoking Status: Current every day smoker second hand exposure: No alcohol intake: never substance use type: denies use current occupational status: employed Travel in the last 8 weeks: None household members: spouse housing: house current occupational exposures/hazards: No caffeine: Yes Have you lived/traveled outside US in past 30 days?: No Contact w/someone who lives/traveled outside US past 30 days?: No Exposure to someone with infectious disease in past 14 days?: No Do you have a fever (greater than 100.4 F or 38 C)?: No Have you tested positive for COVID-19: No Exposed to someone with COVID-19 in past 14 days?: No Do you have a sore throat?: No Do you have a cough?: No Do you have any weakness?: No Do you have any diarrhea?: No Are you experiencing any unusual bleeding?: No Do you have any muscle aches/pain?: No Do you have any abdominal pain?: No Are you experiencing loss of taste or smell?: No ROS Obtained: Yes All systems reviewed & no additional complaints except as documented and Yes Systems reviewed as appropriate & no additional complaints except as documented Constitutional Constitutional: Reports system reviewed and no additional complaints, except as documented and Reports as per HPI ENT Ears, Nose, Mouth, and Throat: Reports system reviewed and no additional complaints, except as documented, Reports as per HPI and Reports otalgia Cardiovascular Cardiovascular: Reports system reviewed and no additional complaints, except as documented and Reports as per HPI Respiratory Respiratory: Reports system reviewed and no additional complaints, except as documented and Reports as per HPI Gastrointestinal Gastrointestingal: Reports system reviewed and no additional complaints, except as documented and as per HPI Physical Exam General General appearance: alert and in no apparent distress ENT ENT exam: Present mucous membranes moist Expanded ENT Exam TM/Canal exam: Right TM: cerumen impaction (redness noted after large portion of cerumen was removed ) Respiratory Respiratory exam: Present normal lung sounds bilaterally; Absent respiratory distress or wheezes Cardiovascular Cardiovascular exam: Present regular rate, normal rhythm and normal heart sounds Neurological Exam Neurological exam: Present alert, oriented X3 and normal gait Medical Decision Making Medical Records Screening: Per USPSTF and CDC recommendations, given the prevalence of disease in our region, it is our hospital?s policy to screen for HIV and viral Hepatitis for all patients aged 18 and over and those with ongoing risk factors. Hilario Inquiry Pt receiving controlled substance: No Hilario was queried for this patient: No Vital Signs: 08/15/24 14:30 Temperature 98.3 F Temperature Source Oral Pulse Rate [Left Brachial] 86 Respiratory Rate 18 Blood Pressure [Left Arm] 138/86 Blood Pressure Mean [Left Arm] 103 Blood Pressure Source [Left Arm] Automatic Cuff Blood Pressure Position [Left Arm] Sitting 02 Sat by Pulse Oximetry 98 Oxygen Delivery Method Room Air Procedures Ear Wax Removal Right Ear: Cerumenolytic Used: other Results: Re-examined: some cerumen remains TM Examination: TM(s) erythematous Ear Canal Exam: atraumatic Patient Tolerated Procedure: well and no complications Complications: no problems Technique: ear canal curetted
[2024-08-15 15:02] VITALS: BP 138/86; PULSE 86; RESP 18; TEMP 36.8; O2SAT 98
== END 2024-08-15 15:04 | disposition home or self-care (01) ==
PROVIDERS: Emergency Provider Nurse Practitioner; PCP Nurse Practitioner Family
DX: H66.90 Otitis media, unspecified, unspecified ear (principal); H92.01 Otalgia, right ear
CPT/HCPCS: 99212; G0381

== ENCOUNTER 2024-10-26 10:39 | Outpatient (CLI) | payer OTHER, MEDICARE, SELFPAY ==
[2024-10-26 21:06] LABS: Influenza A, PCR Not Detected (NotDetected); Influenza B, PCR Not Detected (NotDetected)
[2024-10-26 23:27] LABS: Coronavirus 19, PCR Detected (NotDetected)
== END 2024-10-26 23:59 | disposition home or self-care (01) ==
LOC: LAB.DROPOF 10-28 10:40
PROVIDERS: PCP Nurse Practitioner Family; Visit Provider Nurse Practitioner
DX: R50.9 Fever, unspecified (principal); R09.82 Postnasal drip; Z20.822 Contact with and (suspected) exposure to COVID-19
CPT/HCPCS: 87636

== ENCOUNTER 2024-12-04 14:40 | Outpatient (CLI) | payer OTHER, MEDICARE, SELFPAY | END 2024-12-04 23:59 | disposition home or self-care (01) | LOC: LAB.DROPOF 12-05 08:07 | PROVIDERS: PCP Student in an Organized Health Care Education/Training Program; Visit Provider Student in an Organized Health Care Education/Training Program | DX: R35.0 Frequency of micturition (principal); B96.20 Unspecified Escherichia coli [E. coli] as the cause of diseases classified elsewhere | CPT/HCPCS: 87086; 87088; 87186 ==

== ENCOUNTER 2024-12-25 14:25 | Emergency (ER) | payer OTHER, MEDICARE, SELFPAY ==
[2024-12-25 14:29] VITALS: BP 140/73; PULSE 70; RESP 16; TEMP 36.7; O2SAT 98; BMI 23.0
--- NOTE | 2024-12-25 14:40 | ED_ITS ---
<Statement entered by Kye Talavera MD - 12/25/24 17:47> I was consulted by the NADIA, and we discussed the complexity of problems being addressed. I approved the treatment and management plan for this patient's care in the emergency department, thus performing a substantial portion of the medical decision making. Kye Talavera MD Discharge Plan Disposition Patient Disposition: Home, Self-Care Condition: Good Prescriptions Prescriptions: New doxycycline hyclate 100 mg capsule 100 mg PO BID 10 Days Qty: 20 0RF No Action fluticasone propionate [Flonase Allergy Relief] 50 mcg/actuation spray,suspension 2 spray intranasal DAILY Qty: 16 4RF Rx Instructions: administer into each nostril methylprednisolone 4 mg tablets,dose pack See Rx Instructions PO PER PKG DIR Qty: 21 0RF Rx Instructions: PO PER PKG DIR cefdinir 300 mg capsule 300 mg PO BID Qty: 20 0RF atxolbptssayddb-pfwjamwne-RR [Bromfed DM] 2-30-10 mg/5 mL syrup 5 ml PO Q4-6H PRN (Reason: cold symptoms) Qty: 118 0RF Anoro Ellipta 62.5-25 mcg/actuation blister with device inhalation Patient Comments: INHALE 1 PUFF BY MOUTH EVERY DAY --RINSE MOUTH AFTER USE-- ipratropium-albuterol 0.5 mg-3 mg(2.5 mg base)/3 mL solution for nebulization inhalation QID PRN Patient Comments: INHALE THE CONTENTS OF 1 VIAL VIA NEBULIZER FOUR TIMES DAILY NEEDED FOR SHORTNESS OF BREATH OR wheezing nirmatrelvir-ritonavir 300 mg (150 mg x 2)-100 mg tablets,dose pack See Rx Instructions PO .COMPLEX Qty: 30 0RF Rx Instructions: take TWO 150 mg tablets of nirmatrelvir with ONE 100 mg tablet of ritonavir twice daily for 5 days PO pantoprazole 40 mg tablet,delayed release (DR/EC) See Rx Instructions .ROUTE .COMPLEX Qty: 90 4RF Dose Instruction: TAKE ONE TABLET BY MOUTH EVERY DAY AT BEDTIME Rx Instructions: TAKE ONE TABLET BY MOUTH EVERY DAY AT BEDTIME ipratropium-albuterol 0.5 mg-3 mg(2.5 mg base)/3 mL solution for nebulization See Rx Instructions .ROUTE .COMPLEX Qty: 270 2RF Dose Instruction: INHALE THE CONTENTS OF 1 VIAL VIA NEBULIZER FOUR TIMES DAILY NEEDED FOR SHORTNESS OF BREATH OR wheezing Rx Instructions: INHALE THE CONTENTS OF 1 VIAL VIA NEBULIZER FOUR TIMES DAILY NEEDED FOR SHORTNESS OF BREATH OR wheezing hydrochlorothiazide 12.5 mg capsule See Rx Instructions .ROUTE .COMPLEX Qty: 30 5RF Dose Instruction: TAKE ONE CAPSULE BY MOUTH EVERY DAY Rx Instructions: TAKE ONE CAPSULE BY MOUTH EVERY DAY Gemtesa 75 mg tablet 75 mg PO DAILY Patient Comments: TAKE ONE TABLET BY MOUTH EVERY DAY Referrals Follow up/Referrals: Mercy Salas APRN [Primary Care Provider] - See instructions Activity Restrictions/Add. Instructions Additional Instructions/Restrictions: I have sent a prescription into your pharmacy. Please take it till its gone. Please avoid sun exposure and wear sunscreen while you are on this medication as you could suffer severe sunburn. Please follow-up with your PCP the beginning of next week for recheck of your legs and if you have any new or worsening signs or symptoms return to the ER as needed. Clinical Impressions Clinical Impression: Bilateral edema of lower extremity, Cellulitis of both lower extremities Instructions Patient Instructions: DI for Cellulitis -- Adult Print Language Print Language: Setswana Discharge ED Provider: Kye Talavera Adult HPI General Chief complaint: PAIN Stated complaint: both legs red, swollen and hot to touch Time Seen by Provider: 12/25/24 14:40 Mode of Arrival: Ambulatory Source of Information: Patient Description of Symptoms (Recalled from ER Triage Doc. by RN): Patient reports redness and swelling in right lower extremity x1 day. Patient reports history of swelling in leg. Patient reports pain in right leg. History of Present Illness HPI narrative: Patient presents for evaluation of redness to her bilateral lower extremities. Patient does have occasional swelling of her bilateral legs however they are u sually not painful and they usually do not turn red. She noticed that this morning that they were both burning and slightly red right greater than left. She denies any calf pain any pain with walking loss of motor or sensory chest pain shortness of breath fever chills hemoptysis hematochezia melena nausea vomit diarrhea. She does normally wear support hose. Related Data Home Medications ?Medication ?Instructions ?Recorded ?Confirmed vibegron 75 mg tablet (Gemtesa) 75 mg PO DAILY 08/15/24 12/04/24 ipratropium 0.5 mg-albuterol 3 mg ml inhalation QID PRN 09/11/24 12/04/24 (2.5 mg base)/3 mL nebulization soln umeclidinium 62.5 mcg-vilanterol inhalation 09/11/24 12/04/24 25 mcg/actuation powdr for inhalation (Anoro Ellipta) Previous Rx's ?Medication ?Instructions ?Recorded pantoprazole 40 mg tablet,delayed See Rx Instructions .Route 09/26/24 release .COMPLEX #90 tabs fluticasone propionate 50 2 spray intranasal DAILY #16 grams 09/29/24 mcg/actuation nasal spray,suspension (Flonase Allergy Relief) ipratropium 0.5 mg-albuterol 3 mg See Rx Instructions .Route 09/29/24 (2.5 mg base)/3 mL nebulization .COMPLEX #270 mL soln nirmatrelvir 300 mg (150 mg See Rx Instructions PO .COMPLEX 10/27/24 x2)-ritonavir 100 mg tablet,dose #30 tabs pack hydrochlorothiazide 12.5 mg capsule See Rx Instructions .Route 11/10/24 .COMPLEX #30 caps kwihtdakhpmmgsy-prgmxlgwilezrur-OT 5 ml PO Q4-6H PRN cold symptoms 12/04/24 2 mg-30 mg-10 mg/5 mL oral syrup #118 mL (Bromfed DM) cefdinir 300 mg capsule 300 mg PO BID #20 caps 12/04/24 methylprednisolone 4 mg tablets in See Rx Instructions PO PER PKG DIR 12/04/24 a dose pack #21 tabs doxycycline hyclate 100 mg capsule 100 mg PO BID 10 days #20 caps 12/25/24 Allergies Allergy/AdvReac Type Severity Reaction Status Date / Time codeine AdvReac Unknown NA-NAUSEA/V Verified 12/04/24 14:37 OMITING [facility] Disclaimer: The information contained in this section may have been updated after the patient was seen, as this information can be updated by other users. Medical History Viral syndrome Acute dysfunction of both eustachian tubes Impacted cerumen of right ear Hearing loss, right Crackling sound in right ear Popping of right ear Ear pain, right Cystocele with uterine prolapse Ovarian cyst Hypertension Tobacco abuse disorder Shortness of Breath Prolapse of female pelvic organs COPD mixed type Tobacco abuse counseling History of smoking 30 or more pack years Lung nodule Pulmonary emphysema Family history of aortic aneurysm Dyspnea Surgical History History of cholecystectomy History of hernia surgery History of tubal ligation History of lumbar surgery Family History Other COPD (chronic obstructive pulmonary disease) Social History Smoking Status: Current every day smoker second hand exposure: No alcohol intake: never substance use type: denies use current occupational status: employed Travel in the last 8 weeks?: None household members: spouse housing: house current occupational exposures/hazards: No caffeine: Yes Have you lived/traveled outside US in past 30 days?: No Contact w/someone who lives/traveled outside US past 30 days?: No Exposure to someone with infectious disease in past 14 days?: No Do you have a fever (greater than 100.4 F or 38 C)?: No Have you tested positive for COVID-19?: No Exposed to someone with COVID-19 in past 14 days?: No Do you have a sore throat?: No Do you have a cough?: No Do you have any weakness?: No Do you have any diarrhea?: No Are you experiencing any unusual bleeding?: No Do you have any muscle aches/pain?: No Do you have any abdominal pain?: No Are you experiencing loss of taste or smell?: No Other Medical History Have you received the Flu Vaccine for this season: No Have you received the Pneumonia Vaccine: Yes ROS Obtained: Yes Systems reviewed as appropriate & no additional complaints except as documented Physical Exam General General appearance: alert and in no apparent distress Respiratory Respiratory exam: Present normal lung sounds bilaterally Cardiovascular Cardiovascular exam: Present regular rate Neurological Exam Neurological exam: Present alert and oriented X3 Medical Decision Making Medical Records Medical records reviewed: Yes I reviewed the patient's medical records. Screening: Per USPSTF and CDC recommendations, given the prevalence of disease in our region, it is our hospital?s policy to screen for HIV and viral Hepatitis for all patients aged 18 and over and those with ongoing risk factors. Hilario Inquiry Pt receiving controlled substance: No Vital Signs: 12/25/24 14:29 12/25/24 15:01 12/25/24 15:15 Temperature 98.1 F Temperature Source Tympanic Pulse Rate 73 73 Pulse Rate [Right] 70 Respiratory Rate 16 Blood Pressure 114/58 L 126/66 Blood Pressure [Right Arm] 140/73 Blood Pressure Mean [Right Arm] 95 Blood Pressure Source Blood Pressure Source [Right Arm] Automatic Cuff Blood Pressure Position [Right Arm] Sitting 02 Sat by Pulse Oximetry 98 98 98 Oxygen Delivery Method Room Air Room Air 12/25/24 15:30 12/25/24 16:03 Temperature 98.2 F Temperature Source Oral Pulse Rate 71 80 Pulse Rate [Right] Respiratory Rate 16 Blood Pressure 114/58 L 117/85 Blood Pressure [Right Arm] Blood Pressure Mean [Right Arm] Blood Pressure Source Automatic Cuff Blood Pressure Source [Right Arm] Blood Pressure Position [Right Arm] 02 Sat by Pulse Oximetry 98 Oxygen Delivery Method Room Air Room Air Lab Data Lab results reviewed: Yes I reviewed the patient's lab results. Orders (Tests/Meds): ED MEDICATIONS Discontinued Medications Generic Name Dose Route Start Last Admin Trade Name Freq PRN Reason Stop Dose Admin Doxycycline Hyclate 100 mg 12/25/24 15:26 12/25/24 16:03 Doxycycline Hycl 100 Mg Tablet PO 12/25/24 15:27 100 mg ONCE ONE Administration Medical Decision Narrative: In summary patient is a 69-year-old female who presents to the emergency department for evaluation of bilateral lower extremity redness. Patient is hemodynamically stable upon arrival, febrile. Physical exam is remarkable for +2 pitting edema in the bilateral lower extremities to the level of the mid calf however patient has no posterior calf tenderness and in fact has no tenderness at all to palpation of the lower extremity. She does have right greater than left maculopapular redness but no confluence. There is no induration ecchymosis. Patient has full range of motion is neurovascular intact distally. She has palpable DP and PT pulses bilaterally.. Differential diagnosis includes cellulitis versus lymphedema and patient has no red flags of calf tenderness fever shortness of breath thus alternative diagnosis is were not pursued.. Initial workup was considered with labs and imaging however patient has no systemic symptoms has no red flags for local infection other than superficial redness thus labs and imaging were deferred after shared decision-making discussion with the patient.. We had a shared decision-making discussion with the patient regarding her presentation her workup and her findings and patient was comfortable with close follow-up with her PCP with an initial prescription for doxycycline along with symptomatic treatment with Tylenol Motrin and support hose. Thus patient is appropriate for discharge with close follow-up with her PCP on Sunday or return to the ER for any new or worsening signs or symptoms as needed with a prescription for doxycycline with first dose given here. Patient given sunburn precautions. Critical Care Critical Care Time Critical Care Time: No
[2024-12-25 15:01] VITALS: BP 114/58; PULSE 73; O2SAT 98
--- NOTE | 2024-12-25 15:06 | PC.NURSE ---
pt placed in a gown for provider to examine
[2024-12-25 15:15] VITALS: BP 126/66; PULSE 73; O2SAT 98
[2024-12-25 15:30] VITALS: BP 114/58; PULSE 71; O2SAT 98
[2024-12-25 16:03] VITALS: BP 117/85; PULSE 80; RESP 16; TEMP 36.8
[2024-12-25] MEDS: DOXYCYCLINE HYCL 100 MG TABLET PO (16:03)
== END 2024-12-25 16:05 | disposition home or self-care (01) ==
PROVIDERS: Emergency Provider Emergency Medicine; PCP Nurse Practitioner Family
DX: L03.115 Cellulitis of right lower limb (principal); L03.116 Cellulitis of left lower limb; R60.0 Localized edema
CPT/HCPCS: 99283

== ENCOUNTER 2025-01-05 16:02 | Outpatient (CLI) | payer OTHER, MEDICARE, SELFPAY ==
--- NOTE | 2025-01-05 16:16 | XR_ITS ---
PROCEDURE INFORMATION: Exam: XR Chest Exam date and time: 01/05/2025 4:23 PM Age: 69 years old Clinical indication: Cough and shortness of breath; Additional info: Mae, edema. Bilateral le edema TECHNIQUE: Imaging protocol: Radiologic exam of the chest. Views: 2 views. COMPARISON: No relevant prior studies available. FINDINGS: Lungs: The lungs are hyperinflated and hyperlucent likely underlying COPD. No focal infiltrates or failure identified. Pleural spaces: Unremarkable. No pleural effusion. No pneumothorax. Heart/Mediastinum: Unremarkable. No cardiomegaly. Bones/joints: Unremarkable. IMPRESSION: The lungs are hyperinflated and hyperlucent likely underlying COPD. No focal infiltrates or failure identified.
[2025-01-05 16:24] LABS: Basophils % 0.7 % (0.1-2.0); Eosinophils # 0.1 Kmm3 (0.0-0.4); Eosinophils % 2.2 % (0.1-12.0); Hematocrit 40.2 % (37.0-47.0); Hemoglobin 13.3 g/dL (12.2-16.2); Immature Granulocytes # 0.01 10^3uL; Immature Granulocytes % 0.2 %; Lymphocytes # 2.2 K/mm3 (0.7-4.5); Lymphocytes % 38.6 % (10-50); Mean Corpuscular HGB Conc 33.1 g/dL (31.8-35.4); Mean Corpuscular Hemoglobin 32.4 pg (27.0-31.2); Mean Corpuscular Volume 97.8 fl (81-99); Mean Platelet Volume 9.4 fl (7.4-10.4); Monocytes # 0.4 K/mm3 (0.1-1.0); Monocytes % 7.6 % (1.7-9.3); Neutrophils # 2.9 K/mm3 (1.8-7.8); Neutrophils % 50.7 % (37.0-80.0); Nucleated Red Blood Cells # 0 10^3/uL; Nucleated Red Blood Cells % 0 %; Platelet Count 208 K/mm3 (142-424); Red Blood Count 4.11 M/mm3 (4.20-5.40); Red Cell Distribution Width 13.6 % (11.5-17.5); Red Cell Distribution Width-SD 49.4 fL; White Blood Count 5.8 K/mm3 (4.8-10.8)
[2025-01-05 17:06] LABS: Albumin Level 4.3 g/dl (3.5-5.0)
[2025-01-05 17:07] LABS: Chloride 105 mmol/L (98-107); Potassium 3.9 mmoL/L (3.5-5.1); Sodium 139 mmol/L (136-145)
[2025-01-05 17:09] LABS: Alanine Aminotransferase 16 U/L (12-78); Albumin/Globulin Ratio 2.5 (1.1-1.8); Alkaline Phosphatase 73 U/L (38-126); Anion Gap 4.9 mEq/L (5-15); Aspartate Amino Transferase 23 U/L (14-36); Bilirubin,Total 0.5 mg/dl (0.2-1.3); Blood Urea Nitrogen 22 mg/dl (7-17); Calcium 9.5 mg/dl (8.4-10.2); Carbon Dioxide 31 mmol/L (22.0-30.0); Chol/HDL Ratio 2.6 (1-3.5); Cholesterol 125 mg/dl (140-200); Estimated Glomerular Filt Rate 71 ml/min (>60); GFR (African American) 86 ML/MIN (>60); Globulin 1.8 g/dL (1.3-3.2); Glucose 97 mg/dl (74-100); HDL Cholesterol 48 mg/dl (40-60); Total Protein,Serum 6.3 g/dl (6.3-8.2); Triglycerides 102 mg/dl (30-150); VLDL Cholesterol 20 mg/dL (0-40)
[2025-01-05 17:18] LABS: NT Pro Brain Natriuretic Pep. 38.2 pg/mL (0-125)
[2025-01-05 17:21] LABS: Direct LDL Cholesterol 57.89 mg/dL (100-129)
[2025-01-05 17:40] LABS: Thyroid Stimulating Hormone 1.33 uIU/mL (0.465-4.68)
== END 2025-01-05 23:59 | disposition home or self-care (01) ==
LOC: LAB 16:03
PROVIDERS: PCP Nurse Practitioner Family; Visit Provider Nurse Practitioner Family
DX: I10 Essential (primary) hypertension (principal); R06.09 Other forms of dyspnea; L03.115 Cellulitis of right lower limb; L03.116 Cellulitis of left lower limb; R60.0 Localized edema; R25.2 Cramp and spasm
CPT/HCPCS: 36415; 71046; 80053; 80061; 83735; 83880; 84443; 85025

== ENCOUNTER 2025-01-06 10:59 | Outpatient (CLI) | payer OTHER, MEDICARE, SELFPAY ==
--- NOTE | 2025-01-06 11:00 | CA_ITS ---
FINAL REPORT TECHNIQUE: Multiple transverse and longitudinal scans were performed of the femoral popliteal deep venous system, with augmentation and compression maneuvers. CLINICAL HISTORY: Chronic edema with extensive varicosities FINDINGS: Normal phasic flow was noted in the visualized deep venous system. No intraluminal increased echogenicity is noted to suggest thrombus. There is normal compression and augmentation of the venous structures. No abnormal venous collaterals are seen. IMPRESSION: No evidence of deep venous thrombosis of the bilateral lower extremities. Reviewed, Interpreted and Dictated by Bang Dozier MD Transcribed by Ester Maria Authenticated and [facility]
== END 2025-01-06 23:59 | disposition home or self-care (01) ==
LOC: RT 11:00
PROVIDERS: PCP Nurse Practitioner Family; Visit Provider Nurse Practitioner Family
DX: I83.819 Varicose veins of unspecified lower extremity with pain (principal); I83.899 Varicose veins of unspecified lower extremity with other complications
CPT/HCPCS: 93970

== ENCOUNTER 2025-01-21 15:15 | Outpatient (CLI) | payer OTHER, SELFPAY ==
--- NOTE | 2025-01-21 | CA_ITS ---
APPROVED REPORT EXAM: Comprehensive 2D, Doppler, and color-flow Echocardiogram Obstetrics Gynecology Physician: Reena Abbott RT(R) Ht: 5 ft 11 in Wt: 168lbs BSA: 1.96 BP: 114/72 mmHg Indications: COPD, Shortness of Breath, Peripheral Edema, Hypertension/HDD 2D Dimensions LA Volume 30.50 mL EF AP4 69.90 % GL Strain -24.4 % M-Mode Dimensions RVDd 1.74 cm (0.9-2.6) LA Diam 4.05 cm (1.9-4.0) LVDd 2.75 cm (3.5-5.7) LVDs 1.95 cm (3.5-5.7) IVSd 1.10 cm (0.6-1.1) PWd 0.97 cm (0.6-1.1) EF (Teich) 58.00% FS 29.10% EDV (Teich) 28.30 mL ESV (Teich) 11.90 mL LV Diastology E Decel Time 207 (160-240 msec) E/A Ratio 0.83 Mitral Valve MV E Max Chapin. 86.0 (40-130 cm/s) MV A Velocity 104.0 (40-130 cm/s) E/A Ratio 0.83 MV PHT 61.0 ms Tricuspid Valve TR P. Velocity 248.00 cm/s Left Ventricle The left ventricle is normal size. The left ventricular systolic function is normal. The left ventricular ejection fraction is within the normal range. There is increased LV wall thickness. Transmitral Doppler flow pattern suggests impaired LV relaxation. LVEF is 65%. Right Ventricle The right ventricle is normal size. The right ventricular systolic function is normal. Atria The left atrium size is normal. The right atrium size is normal. There is no Doppler evidence of interatrial shunt. Aortic Valve The aortic valve is mildly thickened. There is no aortic valvular stenosis. No aortic regurgitation. Mitral Valve The mitral valve is normal in structure. No evidence of mitral valve stenosis. Trace mitral regurgitation. Tricuspid Valve Tricuspid valve is grossly normal in structure and function. Mild tricuspid regurgitation. RVSP is 25-30 mmHg. Pulmonic Valve The pulmonary valve is normal in structure. Trace pulmonic regurgitation. Great Vessels The aortic root is normal in size. IVC is normal in size and collapses >50% with inspiration. Pericardium There is no pericardial effusion. Other Information Study Quality: Fair Conclusion Normal biventricular systolic function. Mild TR. Electronically signed by : Estrellita Sims MD 02/01/2025 18:51:51
== END 2025-01-21 23:59 | disposition home or self-care (01) ==
LOC: RT 01-22 07:32
PROVIDERS: PCP Nurse Practitioner Family; Visit Provider Nurse Practitioner Family
DX: I07.1 Rheumatic tricuspid insufficiency (principal); J44.9 Chronic obstructive pulmonary disease, unspecified; I10 Essential (primary) hypertension
CPT/HCPCS: 93306

== ENCOUNTER 2025-03-05 14:32 | Outpatient (CLI) | payer OTHER, SELFPAY ==
--- OUTSIDE RECORDS SUMMARY | 2025-03-05 14:34 | XMS_ITS | Clinical Summary ---
Author Organization [facility] Address [address] [place] [address] Phone Care Team Providers Care Head Mva Reactor Operator Name Role Phone Wisam Kathleen MD Primary Care Provider [phone] Allergies Active Allergy Reactions Criticality Noted Date Comments Codeine Nausea And Vomiting 05/05/2024 Medications trospium (SANCTURA) 20 mg Oral TabletIndication s:OAB (overactive bladder) Take 1 Tablet by mouth 2 times daily. 60 Tablet 5 3 Active Additional Information Patient not taking.Reason: Unable to tolerate, Reported on 12/13/2022 hydroCHLOROthiaz izabela (HYDRODIURIL) 25 mg Oral Tablet Take 12.5 mg by mouth daily. Active aspirin 81 mg Oral Tablet, Chewable Take by mouth daily. Active b xmowyji-Q-wiwlb acid (NEPHROCAP) 1 mg Oral Capsule Take 1 Capsule by mouth daily. Active C/sourcherry/aayush selena/grape seed (TART KULKARNI ORAL) Take by mouth. Activ e TURMERIC ORAL Take by mouth. A ctive nitrofurantoin, macrocrystal-mon ohydrate, (MACROBID) 100 mg Oral Capsule Take 100 mg by mouth 2 times daily. For UTI Active pantoprazole (PROTONIX) 40 mg Oral Tablet, Delayed Release (E.C.) Take by mouth daily. Active albuterol (PROVENTIL HFA;VENTOLIN HFA) 90 mcg/actuation Inhl HFA Aerosol Inhaler Inhale 2 Puffs into the lungs every 6 hours as needed for Wheezing. Active umeclidinium brm/vilanterol tr (ANORO ELLIPTA INHL) Inhale 1 Puff into the lungs daily. Active docusate sodium (COLACE) 100 mg Oral Capsule Take 1 Capsule by mouth 2 times daily. 60 Capsule 2 3 Active Additional Information Patient not taking.Reason: Therapy Completed, Reported on 06/30/2024 polyethylene glycol (GLYCOLAX, MIRALAX) 17 gram Oral Powder in Packet Take 17 g by mouth 2 times daily. 60 Packet 1 3 Active Additional Information Patient not taking.Reason: Therapy Completed, Reported on 06/30/2024 oxyCODONE (ROXICODONE) 5 mg Oral Tablet Take 1 Tablet by mouth every 4 hours as needed for Major Surgery/Trauma (G89.18). 30 Tablet 3 Active Additional Information Patient not taking.Reason: Therapy Completed, Reported on 06/30/2024 albuterol-ipratr opium (DUO-NEB) 0.5 mg-3 mg(2.5 mg base)/3 mL Inhl Solution for Nebulization INHALE THE CONTENTS OF 1 VIAL VIA NEBULIZER FOUR TIMES DAILY NEEDED FOR SHORTNESS OF BREATH OR wheezing Active nitrofurantoin (MACRODANTIN) 50 mg Oral CapsuleIndicatio ns:Recurrent UTI Take 1 Capsule by mouth nightly. Take 1 capsule nightly as instructed 30 Capsule 5 4 Active GEMTESA 75 mg Oral TabletIndication s:OAB (overactive bladder) TAKE ONE TABLET BY MOUTH EVERY DAY 30 Tablet 5 5 Active Active Problems Problem Noted Date Diagnosed Date Female genital prolapse 11/22/2022 Overview (11/22/2022): Added automatically from request for surgery [id number] LIGIA (stress urinary incontinence, female) 2022 Overview (11/22/2022): Added automatically from request for surgery [id number] Mixed incontinence 09/22/2022 Asymptomatic microscopic hematuria 09/22/2022 Incomplete uterovaginal prolapse 09/22/2022 Surgical History Surgery Date Site/Laterality Comments CHOLECYSTECTOMY LUMBAR DISC SURGERY TUBAL LIGATION UTERINE SUSPENSION 01/30/2023 N/A Surgeon: Antoinette Peters MD; Location: [facility] MAIN OR; Service: Robotics Medical devices from this surgery are in the Medical Devices section. RECTOCELE REPAIR 01/30/2023 N/A Surgeon: Antoinette Peters MD; Location: [facility] OR; Service: Robotics Medical devices from this surgery are in the Medical Devices section. URETHROPEXY 01/30/2023 N/A Surgeon: Antoinette Peters MD; Location: [facility] OR; Service: Robotics Medical devices from this surgery are in the Medical Devices section. Medical History Medical History Date Comments Hypertension GERD (gastroesophageal reflux disease) COPD (chronic obstructive pulmonary disease) (HC C) Leg swelling Paroxysmal atrial fibrillation (HCC) Urinary tract infection Family History Medical History Relation Name Comments Cancer Mother Anesth Problems Neg Hx Relation Name Status Comments Mother Social History Tobacco Use Types Packs/Day Years Used Date Smoking Tobacco: Every Day Cigarettes Smokeless Tobacco: Never Alcohol Use Standard Drinks/Week Comments Not Currently 0 (1 standard drink = 0.6 oz pur e alcohol) Sexually Active Control Partners Comments Yes Post-menopausal Male Comments No Sex and Gender Information Value Date Recorded Sex Assigned at Not on file Legal Sex Female 4:39 AM EDT Gender Identity Not on file Sexual Orientation Not on file Obstetrics History Last Filed Vital Signs Vital Sign Reading Time Taken Comments Blood Pressure 124/58 06/30/2024 9:06 AM EST Pulse 60 06/30/2024 9:06 AM EST Temperature 36.4 C (97.6 F) 01/30/2023 7:45 PM EDT Respiratory Rate 12 01/30/2023 7:00 PM EDT Oxygen Saturation 98% 06/30/2024 9:06 AM EST Inhaled Oxygen Concentration - - Weight 73.8 kg (162 lb 9.6 oz) 06/30/2024 9:06 A M EST Height 180.3 cm (5' 11 ) 10/03/2023 9:53 AM EST Body Mass Index 22.68 10/03/2023 9:53 AM EST Plan of Treatment Health Maintenance Due Date Last Done Comments Annual Wellness Exam 11/14/1958 Hepatitis C Screening 1974 Breast Cancer Screening 1996 Cologuard 2001 Colon Cancer Screening 2001 Colonoscopy 2001 FIT 2001 Sigmoidoscopy 2001 Virtual Colonography 2001 Zoster (1 of 2) 2006 Pneumococcal Vaccine 50+ (2 of 2 - PCV) 08/31/2018 08/31/2017 Bone Density Screening 2021 COVID-19 Vaccine (4 - 2023-2 5 season) 2024 06/28/2021, 10/11/2020, 09/06/2020 Influenza Vaccine (#1) 2025 9, 08/04/2016 DTaP/TDaP/Td (2 - Td or Tdap) 12/13/2025 12/14/2015 Hepatitis B Vaccine Aged Out No longe r eligible based on patient's age to complete this topic Meningococcal B Vaccine Aged Out No l onger eligible based on patient's age to complete this topic Medical Devices Implanted Type Area Rail Flaw Detector Operator Device Identifier Shelf Expiration Date Model / Serial / Lot Desjose ramon Blue Ss Short Suture Mesh Sling - [id number] Implanted:Qty: 1 on 01/30/2023 by Antoinette Peters MD at [facility] N/A: Bladder [employer] 05/25/2025 [id number] [id number] / / [id number] [place] [address] [facility] [id number] MEDICARE PART A on file [facility] [id number] Care Teams Head Mva Reactor Operator Relationship Specialty Start Date End Date Wisam Kathleen MD [address] [place] [id number] PCP - General Family Medicine 01/16/23
--- OUTSIDE RECORDS SUMMARY | 2025-03-05 14:34 | XMS_ITS | Clinical Summary ---
Author Organization [facility] Address [address] [place] [address] Care Team Providers Care Regular Senior Care Provider Name Role Phone Diane Young DO Unavailable [phone] Pcp, No Primary Care Provider Unavailabl e Allergies No known active allergies Medications hydroCHLOROthiazid e (HYDRODiuril) 25 MG tablet Take 1 tablet (25 mg) by mouth 1 (one) time each day. Active B Complex-C (b complex-vitamin c) tablet Take 1 tablet by mouth 1 (one) time each day. Active albuterol 108 (90 Base) MCG/ACT inhaler Inhale 2 puffs every 6 (six) hours if needed for wheezing or shortness of breath. Active docusate sodium (Colace) 100 MG capsule Take 1 capsule (100 mg) by mouth 2 (two) times a day. Active ipratropium-albute rol (Duo-Neb) 0.5-2.5 mg/3 mL nebulizer solution Take 3 mL by nebulization every 6 (six) hours if needed for wheezing or shortness of breath. 07/27/20 23 Active ondansetron ODT (Zofran-ODT) 4 MG disintegrating tablet Take 1 tablet (4 mg) by mouth every 8 (eight) hours if needed for nausea or vomiting. 08/18/20 23 Active pantoprazole (Protonix) 40 MG EC tablet Take 1 tablet (40 mg) by mouth every night. Active Anoro Ellipta 62.5-25 MCG/ACT aerosol powder Inhale 1 puff 1 (one) time each day. 03/09/20 22 Active Gemtesa 75 MG tablet Take 1 tablet by mouth 1 (one) time each day. Active ASPIRIN 81 MG chewable tablet Chew 1 tablet (81 mg) 1 (one) time each day. Active TURMERIC CURCUMIN PO Take 1 capsule by mouth 1 (one) time each day. Active Cranberry-Vitamin C-D Mannose 250-30-50 MG chewable tablet Chew 1 tablet 1 (one) time each day. Active Active Problems Problem Noted Date Diagnosed Date Tobacco use disorder 10/26/2022 Second hand smoke exposure 10/26/2022 Resolved Problems Problem Noted Date Diagnosed Date Resolved Date Abdominal pain 08/19/2023 08/22/2023 Immunizations Immunization Administration Dates Next Due Hep A, Adult 07/05/2018,12/31/2017 Influenza, injectable, quadrivalent, preservativ e free 08/04/2016 Influenza, recombinant, quad rivalent, injectable, preservative free 06/12/2019 Pneumococcal Polysaccharide PPV23 08/31/2017 Tdap 12/14/2015 Family History Medical History Relation Name Comments Brain cancer Brother Kidney cancer Brother Brain cancer Father Colon cancer Mother Relation Name Status Comments Brother Father Mother Social History Tobacco Use Types Packs/Day Years Used Date Smoking Tobacco: Every Day Cigarettes 1 50 Smokeless Tobacco: Never Tobacco Cessation:Ready to Q uit: Yes; Counseling Given: Yes Alcohol Use Standard Drinks/Week Comments Never 0 (1 standard drink = 0.6 oz pur e alcohol) Humiliation, Afraid, Rape, and Kick questionnair e Answer Date Recorded Within the last year, have y ou been afraid of your partner or ex-partner? No 08/21/2023 Within the last year, have y ou been humiliated or emotionally abused in other ways by your partner or ex-partner? No Within the last year, have y ou been kicked, hit, slapped, or otherwise physically hurt by your partner or ex-partner? No 08/21/2023 Within the last year, have y ou been raped or forced to have any kind of sexual activity by your partner or ex-partner? No 08/21/2023 Hunger Vital Sign Answer Date Recorded Within the past 12 months, y ou worried that your food would run out before you got the money to buy more. Never true 08/21/20 23 Within the past 12 months, t he food you bought just didn't last and you didn't have money to get more. Never true 08/21/2023 PRAPARE - Transportation Answer Date Re corded In the past 12 months, has l ack of transportation kept you from medical appointments or from getting medications? No 07/28 In the past 12 months, has l ack of transportation kept you from meetings, work, or from getting things needed for daily living? No 08/21/2023 Housing Stability Vital Sign Answer Froylan e Recorded In the last 12 months, was t here a time when you were not able to pay the mortgage or rent on time? No 08/21/2023 In the last 12 months, how many places have you lived? 1 08/21/2023 In the last 12 months, was t here a time when you did not have a steady place to sleep or slept in a long-term (including now)? No 08/21/2023 CAGE ASSESSMENT Answer Date Recorded Cage unable to access Not on file 08/20/2023 Cage max number of drinks Not on file 2022 Cage Beverages a week Not on file 08/20/2023 Have you ever felt you should CUT down on your d rinking? 0 08/20/2023 Have you been ANNOYED by people criticizing your drinking? 0 08/20/2023 Have you felt GUILTY about your drinking? 0 08/20/2023 Have you had a drink first t saulo in the morning (EYE-WATER [employer] GAS HELPER) to steady your nerves or to get rid of a hangover? 0 08/20/2023 CAGE Questionnaire Score 0 023 Utilities Answer Date Recorded In the past 12 months has th e [employer] gas, oil, or water company threatened to shut off services in your home? No 08/21/2023 Comments No Sex and Gender Information Value Date Recorded Sex Assigned at Female 08/20/2023 12:36 AM EST Legal Sex Female 8:37 PM EDT Gender Identity Female 08/20/2023 12:36 AM EST Sexual Orientation Straight 08/20/2023 12 :36 AM EST Last Filed Vital Signs Vital Sign Reading Time Taken Comments Blood Pressure 111/58 08/22/2023 11:04 AM EST Pulse 68 08/22/2023 11:04 AM EST Temperature 36.8 C (98.2 F) 08/22/2023 11:04 AM EST Respiratory Rate 16 08/22/2023 11:04 AM EST Oxygen Saturation 93% 08/22/2023 11:04 AM EST Inhaled Oxygen Concentration - - Weight 75 kg (165 lb 5.5 oz) 08/20/2023 5:47 AM EST Height 180.3 cm (5' 11 ) 08/20/2023 5:47 AM EST Body Mass Index 23.06 08/20/2023 5:47 AM EST Plan of Treatment Health Maintenance Due Date Last Done Comments [facility]-Bone Density Scan 1956 [facility]-Depression Screening 1956 [facility]-/Child/Adol SDOH Screenings 1956 [facility]- SDOH Screenings 1974 [facility]-Adult SDOH Screenings 1974 CT Colonography 2001 Colonoscopy 2001 FIT-DNA 2001 FIT 2001 FOBT 2001 Sigmoidoscopy 2001 [facility]-Colorectal Cancer Screening 2001 [facility]-Breast Cancer Screening 2006 [facility]-Zoster Vaccines (1 of 2) 2006 [facility]-Pneumococcal Vaccine: 50 + Years (2 of 2 - PCV) 08/31/2018 08/31/2017 [id number] Vaccine (4 - season) 2024 06/28/2021, 10/11/2020, 09/06/2020 [facility]-Influenza Vaccine (#1) 04/27/202506/12, 08/04/2016 [facility]-DTaP,Tdap,and Td Vaccine s (2 - Td or Tdap) 12/13/2025 12/14/2015 [facility]-RSV Vaccine: 60+ Years o r (1 - 1-dose 75+ series) 11/14/2031 [facility]-Hepatitis A Vaccines Aged Out 018, 12/31/2017 No longer eligible based on patient's age to complete this topic [facility]-Hepatitis C Screening Completed 08/19/2023 HPV Vaccines Aged Out No longer eligi ble based on patient's age to complete this topic [facility]-HIB Vaccines Aged Out No longer e ligible based on patient's age to complete this topic [facility]-IPV Vaccines Aged Out No longer e ligible based on patient's age to complete this topic [facility]-Rotavirus Vaccines Aged Out No lo nger eligible based on patient's age to complete this topic Procedures Procedure Name Priority Date/Time Associated Diagnosis Comments HEPATITIS C ANTIBODY - ED W/REFLEX TO HCV QUANT PCR STAT 08/19/2023 7:58 PM EST from Last 3 Months or Most Recently Relevant to Health Maintenance Results * Hepatitis C Antibody - ED (08/19/2023 7:58 PM EST) Hepatitis C Antibody Negative Negative 08/20/2023 12:13 AM EST [facility] Blood Venous blood specimen / Unknown Venipuncture / Unknown 08/19/2023 7:58 PM EST 08/19/2023 8:04 PM EST Jessee Herzog APRN LAB BLOOD ORDERABLES Fin al Result Performing Organization Address City/State/[facility] Co de Phone Number [facility] [address] [place] [address] from Last 3 Months or Most Recently Relevant to Health Maintenance Insurance MEDICARE [facility] Advance Directives * Full Code (Latest Code Status on File) Date Activated Date Inactivated Comments 08/19/2023 11:31 PM 08/22/2023 5:05 PM Question Answer Comments Patient has decision-making capacity? Yes Care Teams Regular Senior Care Provider Relationship Specialty Start Date End Date Pcp, No [address] [place] [address] PCP - General Family Medicine 08/19/23 Diane Young DO [address] [place] [address] Obstetrics and Gynecology 10/11/22
--- NOTE | 2025-03-05 14:35 | CT_ITS ---
FINAL REPORT CLINICAL HISTORY: lung cancer screening, 1 pack per day x 50 yrs, copd, emphysem, lung cancer in first degree relative, exposed to second hand smoke COMPARISON: 02/29/2024 FINDINGS: CT CHEST LOW DOSE SCREENING HISTORY: Screening exam for lung cancer. DOSE: CTDI vol: 2.90 mGy, DLP: 118.81 mGy*cm TECHNIQUE: Axial CT without IV contrast administration using low dose protocol. This study was performed with techniques to keep radiation doses as low as reasonably achievable, (ALARA). Individualized dose reduction techniques using automated exposure control or adjustment of mA and/or kV according to the patient's size were employed. There is advanced underlying emphysematous disease. Bilateral upper lobe scarring is stable. There is a stable 2 mm subpleural nodule in the left lower lobe on image 69 of series 3. No pleural or pericardial effusion is seen. No adenopathy or mass lesion is present. IMPRESSION: No evidence of primary lung neoplasm. LUNG RADS CATEGORY 2 RECOMMENDATION: 12 month LDCT follow up Reviewed, Interpreted and Dictated by Nina Arambula MD Transcribed by Obdulia Rodríguez Authenticated and [facility]
== END 2025-03-05 23:59 | disposition home or self-care (01) ==
LOC: RAD 14:32
PROVIDERS: PCP Nurse Practitioner Family; Visit Provider Internal Medicine Pulmonary Disease
DX: Z12.2 Encounter for screening for malignant neoplasm of respiratory organs (principal); J43.9 Emphysema, unspecified; R91.1 Solitary pulmonary nodule; F17.210 Nicotine dependence, cigarettes, uncomplicated
CPT/HCPCS: 71271

== ENCOUNTER 2025-04-20 08:53 | Emergency (ER) | payer OTHER, SELFPAY ==
[2025-04-20 08:55] VITALS: BP 145/74; PULSE 62; RESP 18; TEMP 36.7; O2SAT 100; BMI 23.0
--- NOTE | 2025-04-20 09:02 | HMH.EDGENADL ---
Discharge Plan Disposition Patient Disposition: Home, Self-Care Prescriptions Prescriptions: No Action furosemide 20 mg tablet 20 mg PO DAILY Qty: 30 3RF montelukast 10 mg tablet 10 mg PO QPM 90 Days Qty: 90 2RF magnesium gluconate 12.5 mg magne- sium (250 mg) tablet 12.5 mg PO DAILY potassium gluconate 595 mg (99 mg) tablet 595 mg PO DAILY Anoro Ellipta 62.5-25 mcg/actuation blister with device inhalation Patient Comments: INHALE 1 PUFF BY MOUTH EVERY DAY --RINSE MOUTH AFTER USE-- vitamin B complex Capsule 1 cap PO DAILY pantoprazole 40 mg tablet,delayed release (DR/EC) See Rx Instructions .ROUTE .COMPLEX Qty: 90 4RF Dose Instruction: TAKE ONE TABLET BY MOUTH EVERY DAY AT BEDTIME Rx Instructions: TAKE ONE TABLET BY MOUTH EVERY DAY AT BEDTIME hydrochlorothiazide 12.5 mg capsule See Rx Instructions .ROUTE .COMPLEX Qty: 30 5RF Dose Instruction: TAKE ONE CAPSULE BY MOUTH EVERY DAY Rx Instructions: TAKE ONE CAPSULE BY MOUTH EVERY DAY ipratropium-albuterol 0.5 mg-3 mg(2.5 mg base)/3 mL solution for nebulization See Rx Instructions .ROUTE .COMPLEX Qty: 270 2RF Dose Instruction: INHALE THE CONTENTS OF 1 VIAL VIA NEBULIZER FOUR TIMES DAILY NEEDED FOR SHORTNESS OF BREATH OR wheezing Rx Instructions: INHALE THE CONTENTS OF 1 VIAL VIA NEBULIZER FOUR TIMES DAILY NEEDED FOR SHORTNESS OF BREATH OR wheezing umeclidinium-vilanterol [Anoro Ellipta] 62.5-25 mcg/actuation blister with device 1 inh inhalation DAILY 90 Days Qty: 180 3RF Gemtesa 75 mg tablet 75 mg PO DAILY Patient Comments: TAKE ONE TABLET BY MOUTH EVERY DAY Referrals Follow up/Referrals: Mercy Salas APRN [Primary Care Provider, Medical] - See instructions Activity Restrictions/Add. Instructions Additional Instructions/Restrictions: You do not have any fractures on your x-rays today. You likely have a gout. I encourage you to take 800 mg ibuprofen 3 times daily for the next 3 to 5 days for symptomatic improvement. Avoid alcohol use. I do encourage you to follow-up with your primary care physician if symptoms do not improve over the next 5 days. If you develop any new or worsening symptoms, such as worsening pain, swelling, redness tracking up the leg, fever, or if you become concerned for your health for any reason, return to the emergency department for evaluation. Clinical Impressions Clinical Impression: Pain of right great toe Print Language Print Language: Ukrainian Discharge ED Provider: Brian Keating Adult HPI General Chief complaint: PAIN Stated complaint: AO-04/06-Pain/swelling L foot Time Seen by Provider: 04/20/25 09:02 Mode of Arrival: Ambulatory Source of Information: Patient Limitations: No Limitations History of Present Illness HPI narrative: Daija Tavarez is a 69y female with past medical history of COPD who presents to the emergency department for complaints of left big toe pain. Patient states that 2 weeks ago, she hit her left foot on a banister and had some pain in this area since, however starting 3 days ago, she noticed increased pain over the joint of the left big toe and some mild swelling in this area. She denies any fever, redness, reinjury. She is worried she may have gout but has not been diagnosed with gout before. She still has been ambulatory but states it is painful to do so. She has been taking 400 mg ibuprofen for her symptoms. Related Data Home Medications ?Medication ?Instructions ?Recorded ?Confirmed vibegron 75 mg tablet (Gemtesa) 75 mg PO DAILY 08/15/24 04/07/25 umeclidinium 62.5 mcg-vilanterol inhalation 09/11/24 04/07/25 25 mcg/actuation powdr for inhalation (Anoro Ellipta) magnesium gluconate 12.5 mg 12.5 mg PO DAILY 03/12/25 04/07/25 magnesium (250 mg) tablet potassium gluconate 595 mg (99 mg) 595 mg PO DAILY 03/12/25 04/07/25 tablet vitamin B complex 1 cap PO DAILY 04/07/25 04/07/25 Previous Rx's ?Medication ?Instructions ?Recorded pantoprazole 40 mg tablet,delayed See Rx Instructions .Route 09/26/24 release .COMPLEX #90 tabs hydrochlorothiazide 12.5 mg capsule See Rx Instructions .Route 11/10/24 .COMPLEX #30 caps furosemide 20 mg tablet 20 mg PO DAILY #30 tabs 01/05/25 montelukast 10 mg tablet 10 mg PO QPM 90 days #90 tabs 01/26/25 ipratropium 0.5 mg-albuterol 3 mg See Rx Instructions .Route 04/10/25 (2.5 mg base)/3 mL nebulization .COMPLEX #270 mL soln umeclidinium 62.5 mcg-vilanterol 1 inh inhalation DAILY 90 days 04/16/25 25 mcg/actuation powdr for #180 ea inhalation (Anoro Ellipta) Allergies Allergy/AdvReac Type Severity Reaction Status Date / Time codeine AdvReac Unknown NA-NAUSEA/V Verified 04/07/25 15:02 OMITING PFSH PFSH Disclaimer: The information contained in this section may have been updated after the patient was seen, as this information can be updated by other users. Medical History (Updated 04/20/25 @ 10:18 by Brian Keating MD) Impacted cerumen of both ears Viral syndrome Acute dysfunction of both eustachian tubes Impacted cerumen of right ear Hearing loss, right Crackling sound in right ear Popping of right ear Ear pain, right Cystocele with uterine prolapse Ovarian cyst Hypertension Tobacco abuse disorder Shortness of Breath Prolapse of female pelvic organs COPD mixed type Tobacco abuse counseling History of smoking 30 or more pack years Lung nodule Pulmonary emphysema Family history of aortic aneurysm Dyspnea Surgical History History of cholecystectomy History of hernia surgery History of tubal ligation History of lumbar surgery Family History Other COPD (chronic obstructive pulmonary disease) Social History Smoking Status: Current every day smoker tobacco type: cigarettes packs per day: 1 pack-years: 51 second hand exposure: No alcohol intake: never substance use type: denies use current occupational status: employed Travel in the last 8 weeks?: None household members: spouse housing: house current occupational exposures/hazards: No caffeine: Yes Have you lived/traveled outside US in past 30 days?: No Contact w/someone who lives/traveled outside US past 30 days?: No Exposure to someone with infectious disease in past 14 days?: No Do you have a fever (greater than 100.4 F or 38 C)?: No Have you tested positive for COVID-19?: No Exposed to someone with COVID-19 in past 14 days?: No Do you have a sore throat?: No Do you have a cough?: No Do you have any weakness?: No Do you have any diarrhea?: No Are you experiencing any unusual bleeding?: No Do you have any muscle aches/pain?: No Do you have any abdominal pain?: No Are you experiencing loss of taste or smell?: No Other Medical History Have you received the Flu Vaccine for this season: No Have you received the Pneumonia Vaccine: No ROS Obtained: Yes Systems reviewed as appropriate & no additional complaints except as documented Physical Exam General General appearance: alert and in no apparent distress Head Head exam: atraumatic Eye Eye exam: Present normal appearance ENT ENT exam: Present normal external ear exam Neck Neck exam: Present full ROM Chest Chest inspection: Present symmetric chest wall rise Respiratory Respiratory exam: Present normal lung sounds bilaterally; Absent respiratory distress Cardiovascular Cardiovascular exam: Present regular rate and normal rhythm Abdominal Exam Abdominal exam: Present soft; Absent tenderness or guarding Extremities Exam Extremities exam: Present normal inspection Expanded Lower Extremity Exam Left: Ankle image:  1. Tenderness, no erythema. Mild swelling Back Exam Back exam: Present normal inspection Comment: Full range of motion of the toes without pain. 2+ DP and PT pulses. No erythema or swelling tracking up the leg. Area over the toe is not warm to the touch Neurological Exam Neurological exam: Present alert and oriented X3 Psychiatric Psychiatric exam: Present normal affect Skin Skin exam: Present warm and dry Medical Decision Making Medical Records Screening: Per USPSTF and CDC recommendations, given the prevalence of disease in our region, it is our hospital?s policy to screen for HIV and viral Hepatitis for all patients aged 18 and over and those with ongoing risk factors. Hilario Inquiry Pt receiving controlled substance: No Vital Signs: 04/20/25 08:55 04/20/25 09:16 04/20/25 09:30 Temperature 98.0 F Temperature Source Oral Pulse Rate 56 L 52 L Pulse Rate [Radial] 62 Respiratory Rate 18 Blood Pressure 129/71 131/65 Blood Pressure [Right Arm] 145/74 H Blood Pressure Mean 82 81 Blood Pressure Mean [Right Arm] 97 Blood Pressure Source [Right Arm] Automatic Cuff Blood Pressure Position [Right Arm] Sitting 02 Sat by Pulse Oximetry 100 99 99 Oxygen Delivery Method Room Air 04/20/25 09:45 04/20/25 10:00 Temperature Temperature Source Pulse Rate 53 L 53 L Pulse Rate [Radial] Respiratory Rate Blood Pressure 118/60 128/59 L Blood Pressure [Right Arm] Blood Pressure Mean 78 88 Blood Pressure Mean [Right Arm] Blood Pressure Source [Right Arm] Blood Pressure Position [Right Arm] 02 Sat by Pulse Oximetry 100 100 Oxygen Delivery Method Orders (Tests/Meds): ORDERS Category Date Time Status Foot XR left 2 views [XR foot LT 2V] Stat Exams 04/20/25 09:06 Completed Medical Decision Narrative: Daija Tavarez is a 69y female with past medical history of COPD who presents to the emergency department for complaints of left big toe pain. Patient states that 2 weeks ago, she hit her left foot on a banister and had some pain in this area since, however starting 3 days ago, she noticed increased pain over the joint of the left big toe and some mild swelling in this area. She denies any fever, redness, reinjury. She is worried she may have gout but has not been diagnosed with gout before. She still has been ambulatory but states it is painful to do so. She has been taking 400 mg ibuprofen for her symptoms. On arrival, patient is mildly hypertensive with blood pressure 145/74, heart rate within normal limits, breathing carefully on room air with appropriate oxygen saturation. Afebrile. Physical exam, stated above, reveals an overall well-appearing female in no distress. She has tenderness and mild amount of swelling over the right MTP joint of the first digit. Full range of motion at the toes. This area is not warm to the touch. No significant erythema. 2+ DP and PT pulses. No deformities are appreciated. Differential diagnosis includes, but is not limited to: Fracture, gout/pseudogout, soft tissue injury. Low concern for septic joint given area is not warm to the touch without erythema and full range of motion of the toes without pain. Will obtain plain films of the left foot to evaluate for any fractures or bony injury. X-ray imaging interpreted by me personally. No acute fracture or dislocation. There is some soft tissue over the forefoot. See final radiology report for details. Given this, is felt the patient symptomatology is most consistent with gouty arthritis given location and nature of patient's pain. She has been only taking 400 mg of ibuprofen. Will recommend 800 mg of ibuprofen 3 times daily for the next 3 to 5 days until symptoms improve. I encouraged her to follow with her primary care physician if after this treatment, symptoms did not improve and return to the emergency department for any worsening symptoms, such as increased redness, swelling that tracks up the leg, fever, or if she became concerned for her health for any reason. All questions were answered. She demonstrated understanding and was in agreement this plan. She was then discharged from the emergency department in stable condition. Critical Care Critical Care Time Critical Care Time: No
--- NOTE | 2025-04-20 09:02 | PC.NURSE ---
DR ACEVEDO AT BEDSIDE
--- NOTE | 2025-04-20 09:06 | XR_ITS ---
FINAL REPORT CLINICAL HISTORY: Left big toe pain, MTP joint FINDINGS: 2 views of the left foot were obtained. There is no prior exam for comparison. Osteopenia is noted. There is no acute fracture or dislocation. There is mild degenerative joint disease. Forefoot soft tissue edema is noted. IMPRESSION: Forefoot soft tissue edema without acute bony abnormality. Reviewed, Interpreted and Dictated by Amna Miller MD Transcribed by Obdulia Rodríguez Authenticated and . [facility]
--- NOTE | 2025-04-20 09:14 | PC.NURSE ---
XR AT BEDSIDE
[2025-04-20 09:16] VITALS: BP 129/71; PULSE 56; O2SAT 99
[2025-04-20 09:30] VITALS: BP 131/65; PULSE 52; O2SAT 99
--- OUTSIDE RECORDS SUMMARY | 2025-04-20 09:44 | XMS_ITS | Clinical Summary ---
Author Organization [facility] Address [address] [place] [address] Care Team Providers Care Missing Persons Investigator Name Role Phone Diane Young DO Unavailable [phone] Pcp, No Primary Care Provider Unavailabl e [...] place to sleep or slept in a usp (including now)? No 08/21/2023 CAGE ASSESSMENT Answer [...] drink first t saulo in the morning (EYE-RUBBER LINER) to steady your nerves or to get rid of a hangover? 0 08/20/2023 CAGE Questionnaire Score 0 023 Utilities Answer Date Recorded In the past 12 months has th e [employer], gas, oil, or water company threatened to [...] UKY-Bone Density Scan 1956 UKY-Depression Screening 1956 UKY-Infant/Child/Adol SDOH Screenings 1956 UKY- SDOH Screenings 1974 UKY-Adult SDOH Screenings 1974 CT Colonography 2001 Colonoscopy 2001 FIT-DNA 2001 FIT 2001 FOBT 2001 Sigmoidoscopy 2001 UKY-Colorectal Cancer Screening 2001 UKY-Breast Cancer Screening 2006 UKY-Zoster Vaccines (1 of 2) 2006 UKY-Pneumococcal Vaccine: 50 + Years (2 of 2 - PCV) 08/31/2018 08/31/2017 [id number] Vaccine (4 - season) 2024 06/28/2021, 10/11/2020, [...] Antibody Negative Negative 08/20/2023 12:13 AM EST [facility] Blood Venous blood specimen / Unknown Venipuncture / Unknown 08/19/2023 7:58 PM EST 08/19/2023 8:04 PM EST Jessee Herzog APRN LAB BLOOD ORDERABLES Fin al Result Performing Organization Address City/State/[facility] Co de Phone Number [facility] [address] [place] [address] from Last 3 Months or Most Recently Relevant to Health Maintenance Insurance MEDICARE [facility] Advance Directives * Full Code (Latest Code Status on File) Date Activated Date Inactivated Comments 08/19/2023 11:31 PM 08/22/2023 5:05 PM Question Answer Comments Patient has decision-making capacity? Yes Care Teams Missing Persons Investigator Relationship Specialty Start Date End Date Pcp, No [address] [place] [address] PCP - General Family Medicine 08/19/23 Diane Young DO [address] [place] [address] Obstetrics and Gynecology 10/11/22
--- OUTSIDE RECORDS SUMMARY | 2025-04-20 09:44 | XMS_ITS | Clinical Summary ---
Author Organization [facility] Address [address] [place] [address] Phone Care Team Providers Care Occ Med Physician Name Role Phone Wisam Kathleen MD Primary Care Provider [phone] Allergies Active Allergy Reactions Criticality Noted Date [...] Chewable Take by mouth daily. Active b vhqmylk-G-ljefh acid (NEPHROCAP) 1 mg Oral Capsule Take [...] (11/22/2022): Added automatically from request for surgery [id number] LIGIA (stress urinary incontinence, female) 2022 Overview (11/22/2022): Added automatically from request for surgery [id number] Mixed incontinence 09/22/2022 Asymptomatic microscopic hematuria 09/22/2022 [...] this topic Medical Devices Implanted Type Area Salesperson [employer] Device Identifier Shelf Expiration Date Model / Serial / Lot Desjose ramon Blue Ss Short Suture Mesh Sling - [id number] Implanted:Qty: 1 on 01/30/2023 by Antoinette Peters MD at [facility] N/A: Bladder [employer] 05/25/2025 FROYLAN-DS0 1BS / / [id number] [place] [address] [facility] [id number] MEDICARE PART A on file [facility] [id number] Care Teams Occ Med Physician Relationship Specialty Start Date End Date Wisam Kathleen MD [address] [place] [address] PCP - General Family Medicine 01/16/23
[2025-04-20 09:45] VITALS: BP 118/60; PULSE 53; O2SAT 100
[2025-04-20 10:00] VITALS: BP 128/59; PULSE 53; O2SAT 100
--- NOTE | 2025-04-20 10:00 | PC.NURSE ---
ROUNDED ON PT, UPDATED ON POC. NO NEEDS AT THIS TIME. CALL LIGHT WITHIN REACH
--- NOTE | 2025-04-20 10:28 | PC.NURSE ---
DR ACEVEDO AT BEDSIDE TO UPDATE PT
[2025-04-20 10:40] VITALS: BP 130/67; PULSE 68; RESP 18; TEMP 36.7; O2SAT 97
== END 2025-04-20 10:41 | disposition home or self-care (01) ==
PROVIDERS: Emergency Provider Student in an Organized Health Care Education/Training Program; PCP Nurse Practitioner Family
DX: M79.674 Pain in right toe(s) (principal); F17.210 Nicotine dependence, cigarettes, uncomplicated
CPT/HCPCS: 73620; 99283

== ENCOUNTER 2025-04-24 14:23 | Outpatient (CLI) | payer OTHER, MEDICARE, SELFPAY ==
--- NOTE | 2025-04-24 14:26 | XR_ITS ---
FINAL REPORT CLINICAL HISTORY: left foot pain and swelling COMPARISON: 04/20/2025 FINDINGS: LEFT FOOT: Three views of the left foot demonstrate no acute fracture or dislocation. The visualized joint spaces are normally aligned. Dorsal soft tissue swelling is present. Osteopenia is noted. IMPRESSION: No acute bony abnormality. Reviewed, Interpreted and Dictated by Bang Dozier MD Transcribed by Kiana Chance Authenticated and [facility]
--- OUTSIDE RECORDS SUMMARY | 2025-04-24 14:27 | XMS_ITS | Clinical Summary ---
Author Organization [facility] Address [address] [place] [address] Phone Care Team Providers Care Steward/Stewardess Deck Name Role Phone Wisam Kathleen MD Primary Care Provider [phone] Allergies Active Allergy Reactions Criticality Noted Date [...] Chewable Take by mouth daily. Active b ilpciwf-X-dmzio acid (NEPHROCAP) 1 mg Oral Capsule Take [...] (11/22/2022): Added automatically from request for surgery [id number] LIGIA (stress urinary incontinence, female) 2022 Overview (11/22/2022): Added automatically from request for surgery [id number] Mixed incontinence 09/22/2022 Asymptomatic microscopic hematuria 09/22/2022 [...] this topic Medical Devices Implanted Type Area Marine Painter Device Identifier Shelf Expiration Date Model / Serial / Lot Desjose ramon Blue Ss Short Suture Mesh Sling - [id number] Implanted:Qty: 1 on 01/30/2023 by Antoinette Peters MD at [facility] N/A: Bladder [employer] 05/25/2025 FROYLAN-DS0 1BS / / [id number] [place] [address] [facility] [id number] MEDICARE PART A on file [facility] [id number] Care Teams Steward/Stewardess Deck Relationship Specialty Start Date End Date Wisam Kathleen MD [address] [place] [address] PCP - General Family Medicine 01/16/23
--- OUTSIDE RECORDS SUMMARY | 2025-04-24 14:27 | XMS_ITS | Clinical Summary ---
Author Organization [facility] Address [address] [place] [address] Care Team Providers Care Clay Miner Name Role Phone Diane Young DO Unavailable [phone] Pcp, No Primary Care Provider Unavailabl e [...] place to sleep or slept in a fpc (including now)? No 08/21/2023 CAGE ASSESSMENT Answer [...] drink first t saulo in the morning (EYE-HEALTH INFORMATION SPECIALIST) to steady your nerves or to get rid of a hangover? 0 08/20/2023 CAGE Questionnaire Score 0 023 Utilities Answer Date Recorded In the past 12 months has th e [employer], gas, oil, or water company threatened to [...] (2 of 2 - PCV) 08/31/2018 08/31/2017 [id number] Vaccine (4 - season) 2024 06/28/2021, 10/11/2020, [...] Antibody Negative Negative 08/20/2023 12:13 AM EST [facility] Blood Venous blood specimen / Unknown Venipuncture / Unknown 08/19/2023 7:58 PM EST 08/19/2023 8:04 PM EST Jessee Herzog APRN LAB BLOOD ORDERABLES Fin al Result Performing Organization Address City/State/[facility] Co de Phone Number [facility] [address] [place] [address] from Last 3 Months or Most Recently Relevant to Health Maintenance Insurance MEDICARE [facility] Advance Directives * Full Code (Latest Code Status on File) Date Activated Date Inactivated Comments 08/19/2023 11:31 PM 08/22/2023 5:05 PM Question Answer Comments Patient has decision-making capacity? Yes Care Teams Clay Miner Relationship Specialty Start Date End Date Pcp, No [address] [place] [address] PCP - General Family Medicine 08/19/23 Diane Young DO [address] [place] [address] Obstetrics and Gynecology 10/11/22
[2025-04-24 15:20] LABS: Hematocrit 37.8 % (37.0-47.0); Hemoglobin 12.6 g/dL (12.2-16.2); Immature Granulocytes % 0.2 %; Mean Corpuscular HGB Conc 33.3 g/dL (31.8-35.4); Mean Corpuscular Hemoglobin 32.3 pg (27.0-31.2); Mean Corpuscular Volume 96.9 fl (81-99); Nucleated Red Blood Cells % 0 %; Platelet Count 173 K/mm3 (142-424); Red Blood Count 3.90 M/mm3 (4.20-5.40); Red Cell Distribution Width-SD 46.6 fL; White Blood Count 5.6 K/mm3 (4.8-10.8)
[2025-04-24 16:07] LABS: Uric Acid 4.9 mg/dl (2.5-6.2)
== END 2025-04-24 23:59 | disposition home or self-care (01) ==
LOC: LAB 14:26
PROVIDERS: PCP Nurse Practitioner Family; Visit Provider Nurse Practitioner Family
DX: M79.672 Pain in left foot (principal); M79.89 Other specified soft tissue disorders
CPT/HCPCS: 36415; 73630; 84550; 85025

== ENCOUNTER 2025-04-28 11:25 | Outpatient (CLI) | payer OTHER, MEDICARE, SELFPAY ==
--- OUTSIDE RECORDS SUMMARY | 2025-04-29 11:36 | XMS_ITS | Clinical Summary ---
Author Organization [facility] Address [address] [place] [address] Phone Care Team Providers Care Clinical Case Manager Name Role Phone Wisam Kathleen MD Primary Care Provider [phone] Allergies Active Allergy Reactions Criticality Noted Date [...] Chewable Take by mouth daily. Active b smrqjds-J-anyri acid (NEPHROCAP) 1 mg Oral Capsule Take [...] (11/22/2022): Added automatically from request for surgery [id number] LIGIA (stress urinary incontinence, female) 2022 Overview (11/22/2022): Added automatically from request for surgery [id number] Mixed incontinence 09/22/2022 Asymptomatic microscopic hematuria 09/22/2022 [...] this topic Medical Devices Implanted Type Area Machine Helper Device Identifier Shelf Expiration Date Model / Serial / Lot Desjose ramon Blue Ss Short Suture Mesh Sling - [id number] Implanted:Qty: 1 on 01/30/2023 by Antoinette Peters MD at [facility] N/A: Bladder [employer] 05/25/2025 FROYLAN-DS0 1BS / / [id number] [place] [address] [facility] [id number] MEDICARE PART A on file [facility] [id number] Care Teams Clinical Case Manager Relationship Specialty Start Date End Date Wisam Kathleen MD [address] [place] [address] PCP - General Family Medicine 01/16/23
--- OUTSIDE RECORDS SUMMARY | 2025-04-29 11:36 | XMS_ITS | Clinical Summary ---
Author Organization [facility] Address [address] [place] [address] Care Team Providers Care Psychiatric Technician Assistant Name Role Phone Diane Young DO Unavailable [phone] Pcp, No Primary Care Provider Unavailabl e [...] place to sleep or slept in a jail (including now)? No 08/21/2023 CAGE ASSESSMENT Answer [...] drink first t saulo in the morning (EYE-LOBSTERMAN) to steady your nerves or to get rid of a hangover? 0 08/20/2023 CAGE Questionnaire Score 0 023 Utilities Answer Date Recorded In the past 12 months has th e [employer], gas, oil, or water company threatened to [...] (2 of 2 - PCV) 08/31/2018 08/31/2017 [id number] Vaccine (4 - season) 2024 06/28/2021, 10/11/2020, [...] Antibody Negative Negative 08/20/2023 12:13 AM EST [facility] Blood Venous blood specimen / Unknown Venipuncture / Unknown 08/19/2023 7:58 PM EST 08/19/2023 8:04 PM EST Jessee Herzog APRN LAB BLOOD ORDERABLES Fin al Result Performing Organization Address City/State/[facility] Co de Phone Number [facility] [address] [place] [address] from Last 3 Months or Most Recently Relevant to Health Maintenance Insurance MEDICARE [facility] Advance Directives * Full Code (Latest Code Status on File) Date Activated Date Inactivated Comments 08/19/2023 11:31 PM 08/22/2023 5:05 PM Question Answer Comments Patient has decision-making capacity? Yes Care Teams Psychiatric Technician Assistant Relationship Specialty Start Date End Date Pcp, No [address] [place] [address] PCP - General Family Medicine 08/19/23 Diane Young DO [address] [place] [address] Obstetrics and Gynecology 10/11/22
[2025-04-29 14:12] LABS: Uric Acid 5.3 mg/dl (2.5-6.2)
[2025-04-30 14:12] LABS: RA Latex Turbid. <10.0 IU/mL (<14.0)
[2025-05-01 12:35] LABS: Antinuclear Antibodies, IFA Negative (.)
== END 2025-04-28 23:59 | disposition home or self-care (01) ==
LOC: LAB.DROPOF 04-29 11:14
PROVIDERS: PCP Nurse Practitioner Family; Visit Provider Nurse Practitioner Family
DX: M79.672 Pain in left foot (principal); M79.89 Other specified soft tissue disorders
CPT/HCPCS: 84550; 86038; 86431

== ENCOUNTER 2025-05-01 11:07 | Outpatient (CLI) | payer OTHER, MEDICARE, SELFPAY ==
--- NOTE | 2025-05-01 11:15 | CA_ITS ---
FINAL REPORT TECHNIQUE: Ultrasound images of the deep venous system were obtained from the left groin to the calf veins. CLINICAL HISTORY: Pain and edema in LLE. Patient states she had a fall 4 weeks ago injuring the LLE. HTN, smoker. No history of DVT. COMPARISON: None FINDINGS: The left lower extremity deep venous system is normally compressible. Normal flow is identified. IMPRESSION: No evidence of left lower extremity DVT. Reviewed, Interpreted and Dictated by Amna Miller MD Transcribed by Kiana Chance Authenticated and . [facility]
--- OUTSIDE RECORDS SUMMARY | 2025-05-01 11:15 | XMS_ITS | Clinical Summary ---
Author Organization [facility] Address [address] [place] [address] Phone Care Team Providers Care Cashier Clerk Name Role Phone Wisam Kathleen MD Primary Care Provider [phone] Allergies Active Allergy Reactions Criticality Noted Date [...] Chewable Take by mouth daily. Active b hstmzzf-A-iefvj acid (NEPHROCAP) 1 mg Oral Capsule Take [...] (11/22/2022): Added automatically from request for surgery [id number] LIGIA (stress urinary incontinence, female) 2022 Overview (11/22/2022): Added automatically from request for surgery [id number] Mixed incontinence 09/22/2022 Asymptomatic microscopic hematuria 09/22/2022 [...] Density Screening 2021 COVID-19 Vaccine (4 - 2024-2 6 season) 2025 06/28/2021, 10/11/2020, 09/06/2020 Influenza Vaccine (#1) 2025 9, 08/04/2016 DTaP/TDaP/Td (2 - Td or Tdap) 12/13/2025 12/14/2015 Hepatitis B Vaccine Aged Out No longe r eligible based on patient's age to complete this topic Meningococcal B Vaccine Aged Out No l onger eligible based on patient's age to complete this topic Medical Devices Implanted Type Area Ob Nurse Device Identifier Shelf Expiration Date Model / Serial / Lot Martin Blue Ss Short Suture Mesh Sling - [id number] Implanted:Qty: 1 on 01/30/2023 by Antoinette Peters MD at [facility] N/A: Bladder [employer] 05/25/2025 FROYLAN-DS0 1BS / / [id number] [place] [id number] [facility] [id number] MEDICARE PART A on file [facility] [id number] Care Teams Cashier Clerk Relationship Specialty Start Date End Date Wisam Kathleen MD [address] [place] [id number] PCP - General Family Medicine 01/16/23
--- OUTSIDE RECORDS SUMMARY | 2025-05-01 11:15 | XMS_ITS | Clinical Summary ---
Author Organization [facility] Address [address] [place] [address] Care Team Providers Care Fruit Sprayer Name Role Phone Diane Young DO Unavailable [phone] Pcp, No Primary Care Provider Unavailabl e [...] place to sleep or slept in a skilled nursing (including now)? No 08/21/2023 CAGE ASSESSMENT Answer [...] drink first t saulo in the morning (EYE-SOFTWARE CONFIGURATION MANAGER) to steady your nerves or to get rid of a hangover? 0 08/20/2023 CAGE Questionnaire Score 0 023 Utilities Answer Date Recorded In the past 12 months has th e [employer], gas, oil, or water company threatened to [...] (2 of 2 - PCV) 08/31/2018 08/31/2017 [id number] Vaccine (4 - season) 2024 06/28/2021, 10/11/2020, [...] Antibody Negative Negative 08/20/2023 12:13 AM EST [facility] Blood Venous blood specimen / Unknown Venipuncture / Unknown 08/19/2023 7:58 PM EST 08/19/2023 8:04 PM EST Jessee Herzog APRN LAB BLOOD ORDERABLES Fin al Result Performing Organization Address City/State/[facility] Co de Phone Number [facility] [address] [place] [address] from Last 3 Months or Most Recently Relevant to Health Maintenance Insurance MEDICARE [facility] Advance Directives * Full Code (Latest Code Status on File) Date Activated Date Inactivated Comments 08/19/2023 11:31 PM 08/22/2023 5:05 PM Question Answer Comments Patient has decision-making capacity? Yes Care Teams Fruit Sprayer Relationship Specialty Start Date End Date Pcp, No [address] [place] [address] PCP - General Family Medicine 08/19/23 Diane Young DO [address] [place] [address] Obstetrics and Gynecology 10/11/22
== END 2025-05-01 23:59 | disposition home or self-care (01) ==
LOC: RT 11:08
PROVIDERS: PCP Nurse Practitioner Family; Visit Provider Nurse Practitioner Family
DX: M79.672 Pain in left foot (principal); M79.89 Other specified soft tissue disorders; I10 Essential (primary) hypertension; F17.200 Nicotine dependence, unspecified, uncomplicated
CPT/HCPCS: 93971

== ENCOUNTER 2025-05-12 14:31 | Outpatient (CLI) | payer OTHER, MEDICARE, SELFPAY ==
--- NOTE | 2025-05-12 14:30 | US_ITS ---
FINAL REPORT CLINICAL HISTORY: CLAUDICATION,REST PAIN,SMOKER,HTN FINDINGS: LOWER EXTREMITY SEGMENTAL PRESSURE MEASUREMENTS FINDINGS: Pressure indices are as follows: RIGHT LOWER EXTREMITY: Thigh: 1.08 Calf: 1.20 Ankle, posterior tibial artery: 1.22 Ankle, dorsalis pedis: 0.97 Toe: 0.85 SAVITA: 1.22 Comments: Within normal limits LEFT LOWER EXTREMITY: Thigh: 1.32 Calf: 1.26 Ankle, posterior tibial artery: 1.30 Ankle, dorsalis pedis: 1.29 Toe: 0.71 SAVITA: 1.30 Comments: Within normal limits IMPRESSION: No evidence of peripheral vascular disease in the bilateral lower extremities. Reviewed, Interpreted and Dictated by Nina Arambula MD Transcribed by Obdulia Rodríguez Authenticated and [facility]
--- OUTSIDE RECORDS SUMMARY | 2025-05-12 14:34 | XMS_ITS | Encounter Summary ---
Author Organization [place] [address] Care Team Providers Care Party Plan Dealer Name Role Phone Wisam Kathleen MD Primary Care Provider [phone] Reason for Visit * Reason Comments Medication Refill Encounter Details Date Type Department Care Team (Late st Contact Info) Description 05/12/2025 Refill [facility] [address] [address] Donna Daily, PROJECT FINANCE ANALYST [address] [place], [place] [phone] Medication Refill Social History Tobacco Use Types Packs/Day Years [...] on file Sexual Orientation Not on file documented as of this encounter Plan of Treatment Not on file documented as of this encounter Visit Diagnoses Diagnosis OAB (overactive bladder) Hypertonicity of bladder documented in this encounter Care Teams Party Plan Dealer Relationship Specialty Start Date End Date Wisam Kathleen MD [address] [place] [phone] PCP - General Family Medicine 01/16/23 documented as of this encounter
--- OUTSIDE RECORDS SUMMARY | 2025-05-12 14:34 | XMS_ITS | Clinical Summary ---
Author Organization [facility] Address [address] [place] [address] Phone Care Team Providers Care Sod Farmer Name Role Phone Wisam Kathleen MD Primary Care Provider [phone] Allergies Active Allergy Reactions Criticality Noted Date [...] Chewable Take by mouth daily. Active b hnbgqpb-C-ljvob acid (NEPHROCAP) 1 mg Oral Capsule Take [...] (11/22/2022): Added automatically from request for surgery [id number] LIGIA (stress urinary incontinence, female) 2022 Overview (11/22/2022): Added automatically from request for surgery [id number] Mixed incontinence 09/22/2022 Asymptomatic microscopic hematuria 09/22/2022 Incomplete uterovaginal prolapse 09/22/2022 Encounters Date Type Department Care Team Description 05/12/2025 Refill [facility] Uro[facility]necology [address] [address] Donna Daily, [place] Medication Refill from Last 3 Months Surgical History Surgery Date Site/Laterality Comments CHOLECYSTECTOMY [...] this topic Medical Devices Implanted Type Area Brand Coordinator Device Identifier Shelf Expiration Date Model / Serial / Lot Desara Blue Ss Short Suture Mesh Sling - [id number] Implanted:Qty: 1 on 01/30/2023 by Antoinette Peters MD at [facility] N/A: Bladder [employer] 05/25/2025 FROYLAN-DS0 1BS / / [id number] Insurance [place] [id number] MEDICARE PART A HB on file Care Teams Sod Farmer Relationship Specialty Start Date End Date Wisam Kathleen MD [address] [place] [phone] PCP - General Family Medicine 01/16/23
--- OUTSIDE RECORDS SUMMARY | 2025-05-12 14:34 | XMS_ITS ---
Laboratory report Created on: May 05, 2025 SKYLER WESTON : 1955 Sex: Female Author Organization Unknown PROBLEMS Problems List Code Description RESULTS Laboratory Orders Date Order Code Test 2025-04-28 [id number] RHEUMATOID FACTO R (RF) 2025-04-28 [id number] ERICA BY IFA RFX T ITER/PATTERN Laboratory Results Date LOINC Test Value Unit Reference Range Interpre tation 2025-04-28 [id number] RHEUMATOID FACTOR (RF) <10.0 IU/ML <14.0 2025-04-28 [id number] ERICA BY IFA RFX TITER/PATTERN N
--- OUTSIDE RECORDS SUMMARY | 2025-05-12 14:34 | XMS_ITS | Clinical Summary ---
Author Organization [facility] Address [address] [place] [address] Care Team Providers Care Client Project Coordinator Name Role Phone Diane Young DO Unavailable [phone] Pcp, No Primary Care Provider Unavailabl e [...] place to sleep or slept in a assisted (including now)? No 08/21/2023 CAGE ASSESSMENT Answer [...] drink first t saulo in the morning (EYE-RETAIL LOAN OFFICER) to steady your nerves or to get rid of a hangover? 0 08/20/2023 CAGE Questionnaire Score 0 023 Utilities Answer Date Recorded In the past 12 months has th e [employer], gas, oil, or water company threatened to [...] (2 of 2 - PCV) 08/31/2018 08/31/2017 [id number] Vaccine (4 - 2024- season) 2025 06/28/2021, 10/11/2020, 09/06/2020 UKY-Influenza Vaccine (#1) 04/27/202506/12, [...] Negative Negative 08/20/2023 12:13 AM EST [facility] Blood Venous blood specimen / Unknown Venipuncture / Unknown 08/19/2023 7:58 PM EST 08/19/2023 8:04 PM EST Jessee Herzog APRN LAB BLOOD ORDERABLES Fin al Result Performing Organization Address City/State/[facility] Co de Phone Number [facility] [address] [place] [address] from Last 3 Months or Most Recently Relevant to Health Maintenance Insurance MEDICARE [facility] Advance Directives * Full Code (Latest Code Status on File) Date Activated Date Inactivated Comments 08/19/2023 11:31 PM 08/22/2023 5:05 PM Question Answer Comments Patient has decision-making capacity? Yes Care Teams Client Project Coordinator Relationship Specialty Start Date End Date Pcp, No [address] [place] [address] PCP - General Family Medicine 08/19/23 Diane Young DO [address] [place] [address] Obstetrics and Gynecology 10/11/22
--- NOTE | 2025-05-12 15:15 | MR_ITS ---
FINAL REPORT CLINICAL HISTORY: left foot pain and swelling FINDINGS: Multiplanar MR imaging of the left foot was performed without contrast. There is extensive marrow edema involving the distal end of the middle third of the first metatarsal likely due to stress fracture. No fracture line is seen. There is no other osseous abnormality identified. The flexor and extensor tendons are intact. No ligamentous injury is identified. The musculature is intact. The plantar aponeurosis is intact. No soft tissue mass or cyst is identified. There is surrounding soft tissue edema. IMPRESSION: Severe marrow edema of the first metatarsal suspicious for stress injury. Reviewed, Interpreted and Dictated by Nina Arambula MD Transcribed by Otilia Cramer Authenticated and [facility]
== END 2025-05-12 23:59 | disposition home or self-care (01) ==
LOC: RT 14:32
PROVIDERS: PCP Nurse Practitioner Family; Visit Provider Nurse Practitioner Family
DX: M79.672 Pain in left foot (principal); M79.605 Pain in left leg; M79.89 Other specified soft tissue disorders; R93.6 Abnormal findings on diagnostic imaging of limbs; I73.9 Peripheral vascular disease, unspecified; I10 Essential (primary) hypertension; F17.200 Nicotine dependence, unspecified, uncomplicated
CPT/HCPCS: 73718; 93923

== ENCOUNTER 2025-05-14 15:07 | Outpatient (RCR) | payer OTHER, MEDICARE, SELFPAY | END 2025-05-14 23:59 | disposition home or self-care (01) | LOC: PT 15:07 | PROVIDERS: Visit Provider Nurse Practitioner Family | DX: M84.375A Stress fracture, left foot, initial encounter for fracture (principal) | CPT/HCPCS: 97760 ==

== ENCOUNTER 2025-05-24 13:02 | Outpatient (CLI) | payer OTHER, MEDICARE, SELFPAY ==
[2025-05-24 20:42] LABS: Coronavirus 19, PCR Not Detected (NotDetected); Influenza A, PCR Not Detected (NotDetected); Influenza B, PCR Not Detected (NotDetected)
--- OUTSIDE RECORDS SUMMARY | 2025-05-25 11:26 | XMS_ITS | Clinical Summary ---
Author Organization [facility] Address [address] [place] [address] Care Team Providers Care Web Analytics Developer Name Role Phone Diane Young DO Unavailable [phone] Pcp, No Primary Care Provider Unavailabl e [...] Date Diagnosed Date Tobacco use disorder 10/26/2022 Resolved Problems Problem Noted Date Diagnosed Date Resolved Date Abdominal pain 08/19/2023 08/22/2023 Second hand smoke exposure 10/26/2022 0 05/17/2025 Immunizations Immunization Administration Dates Next Due Hep [...] place to sleep or slept in a alf (including now)? No 08/21/2023 CAGE ASSESSMENT Answer [...] drink first t saulo in the morning (EYE-DEVELOPMENT SPECIALIST) to steady your nerves or to get rid of a hangover? 0 08/20/2023 CAGE Questionnaire Score 0 023 Utilities Answer Date Recorded In the past 12 months has th e electric, gas, oil, or water company threatened to [...] (2 of 2 - PCV) 08/31/2018 08/31/2017 [id number] Vaccine ( - season) 2025 06/28/2021, 10/11/2020, 09/06/2020 UKY-Influenza Vaccine [...] Antibody Negative Negative 08/20/2023 12:13 AM EST [facility] Blood Venous blood specimen / Unknown Venipuncture / Unknown 08/19/2023 7:58 PM EST 08/19/2023 8:04 PM EST Jessee Herzog APRN LAB BLOOD ORDERABLES Fin al Result [facility] [address] [place] [address] from Last 3 Months or Most Recently Relevant to Health Maintenance Insurance MEDICARE [facility] Advance Directives * Full Code (Latest Code Status on File) Date Activated Date Inactivated Comments 08/19/2023 11:31 PM 08/22/2023 5:05 PM Question Answer Comments Patient has decision-making capacity? Yes Care Teams Web Analytics Developer Relationship Specialty Start Date End Date Pcp, No [address] [place] [address] PCP - General Family Medicine 08/19/23 Diane Young DO [address] [place] [address] Obstetrics and Gynecology 10/11/22
--- OUTSIDE RECORDS SUMMARY | 2025-05-25 11:26 | XMS_ITS | Clinical Summary ---
Author Organization [facility] Address [address] [place] [address] Phone Care Team Providers Care Shipping & Receiving Lead Name Role Phone Wisam Kathleen MD Primary Care Provider [phone] Allergies Active Allergy Reactions Criticality Noted Date [...] Chewable Take by mouth daily. Active b rmrjfvp-S-mnbnf acid (NEPHROCAP) 1 mg Oral Capsule Take [...] (11/22/2022): Added automatically from request for surgery [id number] LIGIA (stress urinary incontinence, female) 2022 Overview (11/22/2022): Added automatically from request for surgery [id number] Mixed incontinence 09/22/2022 Asymptomatic microscopic hematuria 09/22/2022 Incomplete uterovaginal prolapse 09/22/2022 Encounters Date Type Department Care Team Description 05/12/2025 Refill [facility] Urogynecology [address] [address] Donna Daily, [place] Medication Refill [...] on file Sexual Orientation Not on file Last Filed Vital Signs Vital Sign Reading [...] this topic Medical Devices Implanted Type Area Engineering Administrator Device Identifier Shelf Expiration Date Model / Serial / Lot Desara Blue Ss Short Suture Mesh Sling - [id number] Implanted:Qty: 1 on 01/30/2023 by Antoinette Peters MD at [facility] N/A: Bladder [employer] 05/25/2025 FROYLAN-DS0 1BS / / [id number] Insurance [place] [id number] MEDICARE PART A HB on file Care Teams Shipping & Receiving Lead Relationship Specialty Start Date End Date Wisam Kathleen MD [address] [place] [phone] PCP - General Family Medicine 01/16/23
--- OUTSIDE RECORDS SUMMARY | 2025-05-25 11:26 | XMS_ITS | Encounter Summary ---
Author Organization [facility] [place] [address] Care Team Providers Care Mortgage Banker Name Role Phone Wisam Kathleen MD Primary Care Provider [phone] Reason for Visit * Reason Comments Medication Refill Encounter Details Date Type Department Care Team (Late st Contact Info) Description 05/12/2025 Refill [facility] [address] [phone] Donna Daily, GOVERNMENT AFFAIRS RESEARCHER [address] [place], [place] [id number] Medication Refill Social History Tobacco Use Types [...] bladder documented in this encounter Care Teams Mortgage Banker Relationship Specialty Start Date End Date Wisam Kathleen MD [address] [place] [phone] PCP - General Family Medicine 01/16/23 documented as of this encounter
== END 2025-05-24 23:59 ==
LOC: LAB.DROPOF 05-25 11:23
PROVIDERS: PCP Nurse Practitioner; Visit Provider Nurse Practitioner
DX: J06.9 Acute upper respiratory infection, unspecified (principal)
CPT/HCPCS: 87631

== ENCOUNTER 2025-07-17 15:06 | Outpatient (CLI) | payer OTHER, MEDICARE, SELFPAY ==
--- OUTSIDE RECORDS SUMMARY | 2025-07-16 09:20 | XMS_ITS | Encounter Summary ---
Author Organization [facility] [address] Care Team Providers Care Program Support Clerk Name Role Phone Wisam Kathleen MD Primary Care Provider [phone] Reason for Visit * Reason Comments New Patient Encounter Details Date Type Department Care Team (Latest Contact Info) Description 07/16/2025 9:20 AM EST Office Visit [facility] [address] [phone] Donna Daily, [place] [address] [place] [address] Pessary maintenance (Primary Dx); Female genital prolapse, [...] this encounter Progress Notes * Donna Daily, MEDICAL INSURANCE CLAIMS PROCESSOR - 07/16/2025 9:20 AM EST Images from [...] pessary No movement with valsalva and comfortable Office Mail Clerk: Katie No results found for this visit on 07/16/25. Vitals: 07/16/25 0925 Pulse: 60 Resp: 16 SpO2: 99% Assessment and Plan: Diagnoses and all orders for this visit: Pessary maintenance Female genital prolapse, unspecified type Overview: Added automatically from request for surgery [id number] Precautions were given to call if she [...] 01/05/2025 added in this encounter Care Teams Program Support Clerk Relationship Specialty Start Date End Date Wisam Kathleen MD [address] [place], [place] [phone] PCP - General Family Medicine 01/16/23 documented as of this encounter
--- OUTSIDE RECORDS SUMMARY | 2025-07-17 15:09 | XMS_ITS | Clinical Summary ---
Author Organization [facility] Address [address] [place] [address] Phone Care Team Providers Care Sulfide Head Operator Name Role Phone Wisam Kathleen MD Primary Care Provider [phone] Allergies Active Allergy Reactions Criticality Noted Date Comments Codeine Nausea And Vomiting 05/05/2024 Medications trospium (SANCTURA) 20 mg Oral TabletIndication s:OAB (overactive bladder) Take 1 Tablet by mouth 2 times daily. 60 Tablet 5 10/23/19 23 Active Additional Information Patient not taking.Reason: Unable to tolerate, Reported on 12/13/2022 hydroCHLOROthiaz izabela (HYDRODIURIL) 25 mg Oral Tablet Take 12.5 mg by mouth daily. Active aspirin 81 mg Oral Tablet, Chewable Take by mouth daily. Active b ytedidh-C-lvnzz acid (NEPHROCAP) 1 mg Oral Capsule Take [...] mouth 2 times daily. 60 Capsule 2 01/31/20 Active Additional Information Patient not taking.Reason: Therapy Completed, Reported on 07/16/2025 polyethylene glycol (GLYCOLAX, MIRALAX) 17 gram Oral Powder in Packet Take 17 g by mouth 2 times daily. 60 Packet 1 01/31/20 Active Additional Information Patient not taking.Reason: Therapy Completed, Reported on 07/16/2025 oxyCODONE (ROXICODONE) 5 mg Oral Tablet Take 1 Tablet by mouth every 4 hours as needed for Major Surgery/Trauma (G89.18). 30 Tablet 01/31/20 Active Additional Information Patient not taking.Reason: Therapy Completed, Reported on 07/16/2025 albuterol-ipratr opium (DUO-NEB) 0.5 mg-3 mg(2.5 mg base)/3 mL Inhl Solution for Nebulization INHALE THE CONTENTS OF 1 VIAL VIA NEBULIZER FOUR TIMES DAILY NEEDED FOR SHORTNESS OF BREATH OR wheezing Active nitrofurantoin (MACRODANTIN) 50 mg Oral CapsuleIndicatio ns:Recurrent UTI Take 1 Capsule by mouth nightly. Take 1 capsule nightly as instructed 30 Capsule 5 10/08/19 24 Active vibegron (GEMTESA) 75 mg Oral TabletIndication s:OAB (overactive bladder) Take 1 Tablet by mouth daily. 30 Tablet 06/22/20 25 Active fUROsemide (LASIX) 20 mg Oral Tablet 20 mg. 01/06/20 25 Active indomethacin (INDOCIN) 50 mg Oral Capsule 50 mg. 05/08/20 25 Active Magnesium Gluconate 12.5 mg magne- sium (250 mg) Oral Tablet 12.5 mg. 03/12/20 25 Active meloxicam (MOBIC) 7.5 mg Oral Tablet TAKE ONE TABLET BY MOUTH EVERY DAY --TAKE WITH FOOD-- 06/23/20 25 Active methylPREDNISolo ne (MEDROL DOSPACK) 4 mg Oral Tablets, Dose Pack TAKE ACCORDING TO PACKAGE INSTRUCTIONS --TAKE WITH FOOD-- -- FINISH ALL MEDICINE -- 06/23/20 25 Active montelukast (SINGULAIR) 10 mg Oral Tablet 10 mg. 01/27/20 25 Active ondansetron (ZOFRAN-ODT) 4 mg Oral Tablet, Rapid Dissolve DISSOLVE 1 TABLET IN MOUTH EVERY 8 HOURS NEEDED FOR NAUSEA AND VOMITING 05/24/20 25 Active hydroCHLOROthiaz izabela (MICROZIDE) 12.5 mg Oral Capsule Take 12.5 mg by mouth daily. 05/26/20 25 Active ANORO ELLIPTA 62.5-25 mcg/actuation Inhl Disk with Device 07/13/20 25 Active GEMTESA 75 mg Oral TabletIndication s:OAB (overactive bladder) TAKE ONE TABLET BY MOUTH EVERY DAY 30 Tablet 5 10/21/19 25 025 Discontin ued(Reord er) Active Problems Problem Noted Date Diagnosed Date Female genital prolapse 11/22/2022 Overview (11/22/2022): Added automatically from request for surgery [id number] LIGIA (stress urinary incontinence, female) 2022 Overview (11/22/2022): Added automatically from request for surgery [id number] Mixed incontinence 09/22/2022 Asymptomatic microscopic hematuria 09/22/2022 Incomplete uterovaginal prolapse 09/22/2022 Encounters Date Type Department Care Team Description 07/16/2025 9:20 AM EST Office Visit [facility] [address] [phone] Donna Daily APRN Pessary maintenance (Primary Dx); Female genital prolapse, unspecified type 06/06/2025 Refill [facility] [address] [phone] Donna Daily APRN Medication Refill 05/12/2025 Refill [facility] [address] [phone] Donna Daily APRN Medication Refill from Last 3 Months Surgical [...] 124/58 06/30/2024 9:06 AM EST Pulse 60 07/16/2025 9:25 AM EST Temperature 36.4 C (97.6 F) 01/30/2023 7:45 PM EDT Respiratory Rate 16 07/16/2025 9:25 AM EST [...] 2024-2 6 season) 2025 06/28/2021, 10/11/2020, 09/06/2020 DTaP/TDaP/Td (2 - Td or Tdap) 12/13/2025 12/14/2015 Influenza Vaccine Completed 06/12/2025, 06/12/2019, 08/04/2016 Hepatitis B Vaccine Aged Out No longe r eligible based on patient's age to complete this topic Meningococcal B Vaccine Aged Out No l onger eligible based on patient's age to complete this topic Medical Devices Implanted Type Area Social Work Instructor Device Identifier Shelf Expiration Date Model / Serial / Lot Martin Blue Ss Short Suture Mesh Sling - [id number] Implanted:Qty: 1 on 01/30/2023 by Antoinette Peters MD at [facility] N/A: Bladder [employer] 05/25/2025 [id number]-DS0 1BS / / [id number] [place] [address] [facility] [id number] MEDICARE PART A on file [facility] [id number] Care Teams Sulfide Head Operator Relationship Specialty Start Date End Date Wisam Kathleen MD [address] [place] [id number] PCP - General Family Medicine 01/16/23
--- OUTSIDE RECORDS SUMMARY | 2025-07-17 15:09 | XMS_ITS | Encounter Summary ---
Author Organization [place] [address] Care Team Providers Care Yacht Rigger Name Role Phone Wisam Kathleen MD Primary Care Provider [phone] Reason for Visit * Reason Onset Date Comments Medication Refill 06/06/2025 Encounter Details Date Type Department Care Team (Late st Contact Info) Description 06/06/2025 Refill [facility] [address] [phone] Donna Daily M, HAZARDOUS MATERIALS WASTE TECHNICIAN [address] [place], [place] [id number] Medication Refill Social History Tobacco Use Types [...] on file documented as of this encounter Ordered Prescriptions Prescription Sig Dispense Quantity Refills Last Filled Start Date End Date vibegron (GEMTESA) 75 mg Oral TabletIndications:O AB (overactive bladder) Take 1 Tablet by mouth daily. 30 Tablet 06/22/2025 documented in this encounter Miscellaneous Notes * Addendum Note - Genet Nelson MA - 06/22/2025 3:32 PM EDTAddended by: GENET NELSON on: 06/22/2025 03:32 PM Modules accepted: Orders * Telephone Encounter - Genet Nelson MA - 06/22/2025 3:32 PM EDT pt scheduled, 30 day refill sent. documented in this encounter Plan of Treatment Not on file documented as of this encounter Visit Diagnoses Diagnosis OAB (overactive bladder) Hypertonicity of bladder documented in this encounter Discontinued Medications Medication Sig Discontinue Reason Start Date End Da te GEMTESA 75 mg Oral TabletIndications:OAB (overactive bladder) TAKE ONE TABLET BY MOUTH EVERY DAY Reorder 10/21/2024 06/22/2025 documented as of this encounter Care Teams Yacht Rigger Relationship Specialty Start Date End Date Wisam Kathleen MD [address] [place] [address] PCP - General Family Medicine 01/16/23 documented as of this encounter
--- OUTSIDE RECORDS SUMMARY | 2025-07-17 15:09 | XMS_ITS | Encounter Summary ---
Author Organization [facility] [place] [address] Care Team Providers Care Supervisor Vegetable Farming Name Role Phone Wisam Kathleen MD Primary Care Provider [phone] Reason for Visit * Reason Comments Medication Refill Encounter Details Date Type Department Care Team (Late st Contact Info) Description 05/12/2025 Refill [facility] [address] [phone] Donna Daily, MOTOR WINDER [address] [place], [place] [phone] Medication Refill Social History Tobacco Use Types [...] bladder documented in this encounter Care Teams Supervisor Vegetable Farming Relationship Specialty Start Date End Date Wisam Kathleen MD [address] [place] [id number] PCP - General Family Medicine 01/16/23 documented as of this encounter
--- OUTSIDE RECORDS SUMMARY | 2025-07-17 15:09 | XMS_ITS | Clinical Summary ---
Author Organization [facility] Address [address] [place] [address] Care Team Providers Care Equipment Planner Name Role Phone Diane Young DO Unavailable [phone] Pcp, No Primary Care Provider Unavailabl e [...] place to sleep or slept in a residential (including now)? No 08/21/2023 CAGE ASSESSMENT Answer [...] drink first t saulo in the morning (EYE-CHOIR ACCOMPANIST) to steady your nerves or to get [...] (2 of 2 - PCV) 08/31/2018 08/31/2017 [id number] Vaccine (4 - season) 2025 06/28/2021, 10/11/2020, 09/06/2020 [facility]-Influenza [...] Antibody Negative Negative 08/20/2023 12:13 AM EST [facility] Blood Venous blood specimen / Unknown Venipuncture / Unknown 08/19/2023 7:58 PM EST 08/19/2023 8:04 PM EST Jessee Herzog APRN LAB BLOOD ORDERABLES Fin al Result [facility] [address] [place] [address] from Last 3 Months or Most Recently Relevant to Health Maintenance Insurance MEDICARE [facility] Advance Directives * Full Code (Latest Code Status on File) Date Activated Date Inactivated Comments 08/19/2023 11:31 PM 08/22/2023 5:05 PM Question Answer Comments Patient has decision-making capacity? Yes Care Teams Equipment Planner Relationship Specialty Start Date End Date Pcp, No [address] [place] [id number] PCP - General Family Medicine 08/19/23 Diane Young DO [facility] [address] Obstetrics and Gynecology 10/11/22
--- NOTE | 2025-07-17 15:13 | XR_ITS ---
FINAL REPORT CLINICAL HISTORY: Evaluation of Left Foot Pain COMPARISON: 04/24/2025 FINDINGS: LEFT FOOT Three views demonstrate no acute fracture or dislocation. The joint spaces appear normal. The bones are osteopenic. There is a small plantar spur. No acute soft tissue abnormality is seen. IMPRESSION: Degenerative changes without acute bony abnormality. Reviewed, Interpreted and Dictated by Bang Dozier MD Transcribed by Ester Maria Authenticated and [facility]
--- NOTE | 2025-07-17 15:13 | XR_ITS ---
FINAL REPORT CLINICAL HISTORY: Evaluation of Right Foot Pain COMPARISON: None FINDINGS: RIGHT FOOT Three views demonstrate no acute fracture or dislocation. The joint spaces appear normal. The bones are osteopenic. There is a small plantar spur. No acute soft tissue abnormality is seen. IMPRESSION: Degenerative changes without acute bony abnormality. Reviewed, Interpreted and Dictated by Bang Dozier MD Transcribed by Ester Maria Authenticated and [facility]
== END 2025-07-17 23:59 | disposition home or self-care (01) ==
LOC: RAD 15:08
PROVIDERS: PCP Nurse Practitioner Family; Visit Provider Podiatrist
DX: M85.871 Other specified disorders of bone density and structure, right ankle and foot (principal); M77.31 Calcaneal spur, right foot; M77.32 Calcaneal spur, left foot; M19.072 Primary osteoarthritis, left ankle and foot
CPT/HCPCS: 73630

== ENCOUNTER 2025-08-21 09:04 | Outpatient (CLI) | payer OTHER, SELFPAY ==
--- OUTSIDE RECORDS SUMMARY | 2025-07-16 09:20 | XMS_ITS | Encounter Summary ---
Author Organization [facility] [place] [address] Care Team Providers Care Telegraph Mechanic Name Role Phone Wisam Kathleen MD Primary Care Provider [phone] Reason for Visit * Reason Comments New Patient Encounter Details Date Type Department Care Team (Latest Contact Info) Description 07/16/2025 9:20 AM EST Office Visit [facility] [address] [phone] Donna Daily, [place] [address] [place] [address] Pessary maintenance (Primary Dx); Female genital prolapse, unspecified type Social History Tobacco Use Types Packs/Day Years [...] on file documented as of this encounter Last Filed Vital Signs Vital Sign Reading Time Taken Comments Blood Pressure - - Pulse 60 07/16/2025 9:25 AM EST Temperature - - Respiratory Rate 16 07/16/2025 9:25 AM EST Oxygen Saturation 99% 07/16/2025 9:25 AM EST Inhaled Oxygen Concentration - - Weight - - Height - - Body Mass Index - - documented in this encounter Progress Notes * Donna Daily, ACCOUNTING OFFICE MANAGER - 07/16/2025 9:20 AM EST Images from the original note were not included. HPI: Daija Tavarez returns for a pessary check today. She reports no bleeding,abnormal vaginal discharge,pelvic or vaginal discomfort. She removes 1 night every 1-2 weeks. Admits she has difficulty removing the pessary at times. Tried and failed dental floss. She is sexually active. Review of Systems: Review of Systems Constitutional: Negative for fatigue and fever. Respiratory: Negative for shortness of breath. Gastrointestinal: Negative for abdominal pain. Genitourinary: Negative for dyspareunia, dysuria, frequency, urgency and vaginal bleeding. Skin: Negative for rash. Neurological: Negative for dizziness. Psychiatric/Behavioral: Negative for behavioral problems. Physical Exam: Physical Exam Constitutional: General: She is not in acute distress. Appearance: Normal appearance. She is well-developed. She is not ill-appearing, toxic-appearing or diaphoretic. Pulmonary: Effort: Pulmonary effort is normal. No respiratory distress. Abdominal: General: There is no distension. Musculoskeletal: General: Normal range of motion. Skin: General: Skin is warm and dry. Neurological: Mental Status: She is alert and oriented to person, place, and time. Mental status is at baseline. Psychiatric: Mood and Affect: Mood normal. Behavior: Behavior normal. Thought Content: Thought content normal. Judgment: Judgment normal. Pessary cleaning: Vaginal exam preformed no isolated lesion, rash or abnormality Pessary in appropriate position: yes Pessary removed without difficulty: yes Pessary removed with ring forceps: no Vaginal exam: No erosion, ulceration, erythema, bleeding, discharge Vagina irrigated with water/hydrogen peroxide combination: yes Pessary reinserted without difficulty: yes Pessary: #2Ring with support 1 fingerbreadth admitted around pessary No movement with valsalva and comfortable Intermediate Project Manager: Katie No results found for this visit on 07/16/25. Vitals: 07/16/25 0925 Pulse: 60 Resp: 16 SpO2: 99% Assessment and Plan: Diagnoses and all orders for this visit: Pessary maintenance Female genital prolapse, unspecified type Overview: Added automatically from request for surgery [id number] Precautions were given to call if she encountered any issues with urination, defecation, spotting, or pain. The patient verbalizes an understanding of these precautions. Pt was instructed on the safety and risks of pessary use. Pt aware that if the office is managing her pessary, she needs cleanings every 3-6 months based on the instruction of the provider. Pt verbalizes an understanding that pessaries have the risk of bleeding, infection, incarceration, bowel or bladder perforation and surgical extraction or intervention. Declines alt options: including surgery or 3- month pessary cleanings as she is sexually active Return for 1 year or as needed. Donna Daily APRN documented in this encounter Plan of Treatment Not on file documented as of this encounter Visit Diagnoses Diagnosis Pessary maintenance- Primary Fitting and adjustment of other device Female genital prolapse, unspecified type documented in this encounter Historical Medications * This list may reflect changes made after this encounter. ANORO ELLIPTA 62.5-25 mcg/actuation Inhl Disk with Device 07/13/2025 hydroCHLOROthiaz izabela (MICROZIDE) 12.5 mg Oral Capsule Take 12.5 mg by mouth daily. 05/26/2025 ondansetron (ZOFRAN-ODT) 4 mg Oral Tablet, Rapid Dissolve DISSOLVE 1 TABLET IN MOUTH EVERY 8 HOURS NEEDED FOR NAUSEA AND VOMITING 05/24/2025 montelukast (SINGULAIR) 10 mg Oral Tablet 10 mg. 01/26/2025 methylPREDNISolo ne (MEDROL DOSPACK) 4 mg Oral Tablets, Dose Pack TAKE ACCORDING TO PACKAGE INSTRUCTIONS --TAKE WITH FOOD-- -- FINISH ALL MEDICINE -- 06/23/2025 meloxicam (MOBIC) 7.5 mg Oral Tablet TAKE ONE TABLET BY MOUTH EVERY DAY --TAKE WITH FOOD-- 06/23/2025 Magnesium Gluconate 12.5 mg magne- sium (250 mg) Oral Tablet 12.5 mg. 03/12/2025 indomethacin (INDOCIN) 50 mg Oral Capsule 50 mg. 05/08/2025 fUROsemide (LASIX) 20 mg Oral Tablet 20 mg. 01/05/2025 added in this encounter Care Teams Telegraph Mechanic Relationship Specialty Start Date End Date Wisam Kathleen MD [address] [place], [place] [phone] PCP - General Family Medicine 01/16/23 documented as of this encounter
--- NOTE | 2025-08-21 09:00 | XR_ITS ---
FINAL REPORT CLINICAL HISTORY: stress fx of left foot COMPARISON: None FINDINGS: Using L1-4, the bone mineral density of the spine is 0.895 g/cm2, corresponding to T-score of -1.4. Using the left hip, the bone mineral density of the femoral neck is 0.602 g/cm2, corresponding to a T-score of -2.2. Using the right hip, the bone mineral density of the femoral neck is 0.666 g/cm2, corresponding to a T-score of -2.3. NOTE: T-score: Standard deviation compared with peak bone mass of young adult mean. *Following the recommendations of the International Society of Bone densitometry, classification of hip BMD is based on the lower of two T-scores; total hip or femoral neck. IMPRESSION: Diminished bone mineral density of the lumbar spine and bilateral hips consistent with osteopenia. Reviewed, Interpreted and Dictated by Nina Arambula MD Transcribed by Kiana Chance Authenticated and [facility]
--- OUTSIDE RECORDS SUMMARY | 2025-08-21 09:08 | XMS_ITS | Encounter Summary ---
Author Organization [place] [address] Care Team Providers Care Wood Patternmaker Apprentice Name Role Phone Wisam Kathleen MD Primary Care Provider [phone] Reason for Visit * Reason Onset Date Comments Medication Refill 06/06/2025 Encounter Details Date Type Department Care Team (Late st Contact Info) Description 06/06/2025 Refill [facility] [address] [phone] Donna Daily M, BURNING PLANT OPERATOR [address] [place], [place] [phone] Medication Refill Social History Tobacco Use Types [...] documented as of this encounter Care Teams Wood Patternmaker Apprentice Relationship Specialty Start Date End Date Wisam Kathleen MD [address] [place] [address] PCP - General Family Medicine 01/16/23 documented as of this encounter
--- OUTSIDE RECORDS SUMMARY | 2025-08-21 09:08 | XMS_ITS | Clinical Summary ---
Author Organization [facility] Address [address] [place] [address] Care Team Providers Care College Scouting Coordinator Name Role Phone Diane Young DO Unavailable [phone] Pcp, No Primary Care Provider Unavailabl [...] place to sleep or slept in a [facility] (including now)? No 08/21/2023 CAGE ASSESSMENT Answer [...] drink first t saulo in the morning (EYE-MACHINE I CUTTER) to steady your nerves or to get [...] (2 of 2 - PCV) 08/31/2018 08/31/2017 [id number] Vaccine (4 - season) 2025 06/28/2021, 10/11/2020, 09/06/2020 [facility]-Influenza Vaccine (#1) 04/27/202506/12, 08/04/2016 [facility]-DTaP,Tdap,and Td Vaccine s (2 - Td or Tdap) 12/13/2025 12/14/2015 [facility]Y-RSV Vaccine: 60+ Years o r (1 - 1-dose 75+ series) 11/14/2031 [facility]-Hepatitis A Vaccines Aged Out 018, 12/31/2017 No longer eligible based on patient's age to complete this topic [facility]-Hepatitis C Screening Completed 08/19/2023 HPV Vaccines (No Doses Required) Completed [facility]-HIB Vaccines Aged Out No longer e [...] Antibody Negative Negative 08/20/2023 12:13 AM EST LAB Blood Venous blood specimen / Unknown Venipuncture / Unknown 08/19/2023 7:58 PM EST 08/19/2023 8:04 PM EST Jessee Herzog APRN LAB BLOOD ORDERABLES Fin al Result Performing Organization Address City/State/[facility] Co de Phone Number [facility] [address] [place] [address] from Last 3 Months or Most Recently Relevant to Health Maintenance Insurance MEDICARE [facility] Advance Directives * Full Code (Latest Code Status on File) Date Activated Date Inactivated Comments 08/19/2023 11:31 PM 08/22/2023 5:05 PM Question Answer Comments Patient has decision-making capacity? Yes Care Teams College Scouting Coordinator Relationship Specialty Start Date End Date Pcp, No [address] [place] [address] PCP - General Family Medicine 08/19/23 Diane Young DO [facility] G4 [id number] Obstetrics and Gynecology 10/11/22
--- OUTSIDE RECORDS SUMMARY | 2025-08-21 09:08 | XMS_ITS | Clinical Summary ---
Author Organization [facility] Address [address] [place] [address] Phone Care Team Providers Care Repairing Calibrator Name Role Phone Wisam Kathleen MD Primary Care Provider [phone] Allergies Active Allergy Reactions Criticality Noted Date [...] Chewable Take by mouth daily. Active b feqclck-U-ttgxo acid (NEPHROCAP) 1 mg Oral Capsule Take [...] as instructed 30 Capsule 5 4 Active vibegron (GEMTESA) 75 mg Oral TabletIndication s:OAB (overactive bladder) Take 1 Tablet by mouth daily. 30 Tablet 5 Active fUROsemide (LASIX) 20 mg Oral Tablet 20 mg. 5 Active indomethacin (INDOCIN) 50 mg Oral Capsule 50 mg. 5 Active Magnesium Gluconate 12.5 mg magne- sium (250 mg) Oral Tablet 12.5 mg. 5 Active meloxicam (MOBIC) 7.5 mg Oral Tablet TAKE ONE TABLET BY MOUTH EVERY DAY --TAKE WITH FOOD-- 5 Active methylPREDNISolo ne (MEDROL DOSPACK) 4 mg Oral Tablets, Dose Pack TAKE ACCORDING TO PACKAGE INSTRUCTIONS --TAKE WITH FOOD-- -- FINISH ALL MEDICINE -- 5 Active montelukast (SINGULAIR) 10 mg Oral Tablet 10 mg. 5 Active ondansetron (ZOFRAN-ODT) 4 mg Oral Tablet, Rapid Dissolve DISSOLVE 1 TABLET IN MOUTH EVERY 8 HOURS NEEDED FOR NAUSEA AND VOMITING 5 Active hydroCHLOROthiaz izabela (MICROZIDE) 12.5 mg Oral Capsule Take 12.5 mg by mouth daily. 5 Active ANORO ELLIPTA 62.5-25 mcg/actuation Inhl Disk with Device 5 Active vibegron (GEMTESA) 75 mg Oral TabletIndication s:OAB (overactive bladder) Take 75 mg by mouth daily. Take one tab by mouth daily. 30 Tablet 2 5 Active Active Problems Problem Noted Date Diagnosed Date Female genital prolapse 11/22/2022 Overview (11/22/2022): Added automatically from request for surgery [id number] LIGIA (stress urinary incontinence, female) 2022 Overview (11/22/2022): Added automatically from request for surgery [id number] Mixed incontinence 09/22/2022 Asymptomatic microscopic hematuria 09/22/2022 Incomplete uterovaginal prolapse 09/22/2022 Encounters Date Type Department Care Team Description 07/29/2025 [place] [facility] [place] [address] [phone] Alisia Ahuja MA Medication Refill 07/16/2025 9:20 AM EST Office Visit [facility] [address] [phone] Donna Daily APRN Pessary maintenance (Primary Dx); Female genital prolapse, unspecified type 06/06/2025 Ref[place] [facility] [place] [place] [address] [phone] Donna Daily APRN Medication Refill [...] this topic Medical Devices Implanted Type Area Cop Breaker Device Identifier Shelf Expiration Date Model / Serial / Lot Martin Blue Ss Short Suture Mesh Sling - [id number] Implanted:Qty: 1 on 01/30/2023 by Antoinette Peters MD at [facility] N/A: Bladder [employer] 05/25/2025 [id number]-DS0 1BS / / [id number] Insurance [facility] [id number] MEDICARE PART A on file [facility] [id number] Care Teams Repairing Calibrator Relationship Specialty Start Date End Date Wisam Kathleen MD [address] [place] [id number] PCP - General Family Medicine 01/16/23
--- OUTSIDE RECORDS SUMMARY | 2025-08-21 09:08 | XMS_ITS | Encounter Summary ---
Author Organization [place] [address] Care Team Providers Care Dianetic Counselor Name Role Phone Wisam Kathleen MD Primary Care Provider [phone] Reason for Visit * Reason Onset Date Comments Medication Refill 07/29/2025 Encounter Details Date Type Department Care Team (Late st Contact Info) Description 07/29/2025 Telephone [facility] [address] [phone] Alisia Ahuja MA Medication Refill Social History Tobacco Use Types [...] mg Oral TabletIndications:O AB (overactive bladder) Take 75 mg by mouth daily. Take one tab by mouth daily. 30 Tablet 2 07/29/2025 documented in this encounter Miscellaneous Notes * Telephone Encounter - Alisia Ahuja MA - 07/29/2025 12:43 PM EST Refill request received from patients pharmacy. Given KK is out and I would need a signature to jack, refill sent electronically documented in this encounter Plan of Treatment Not on file documented as of this encounter Visit Diagnoses Diagnosis OAB (overactive bladder)- Primary Hypertonicity of bladder documented in this encounter Care Teams Dianetic Counselor Relationship Specialty Start Date End Date Wisam Kathleen MD [address] [place] [address] PCP - General Family Medicine 01/16/23 documented as of this encounter
== END 2025-08-21 23:59 ==
LOC: RAD 09:05
PROVIDERS: PCP Nurse Practitioner Family; Visit Provider Nurse Practitioner Family
DX: M84.375A Stress fracture, left foot, initial encounter for fracture (principal); Z78.0 Asymptomatic menopausal state; M85.88 Other specified disorders of bone density and structure, other site
CPT/HCPCS: 77080